=== PATIENT | female | born 1935 | race Asian ===

== ENCOUNTER 2017-10-08 07:52 | Inpatient (IN) | payer MEDICARE, MEDICAID ==
[~2017-10-08] VITALS: Ht 157.5 cm; Wt 67.4 kg
[2017-10-08] VITALS (17 sets, daily range): BP systolic 137–204; BP diastolic 51–82
[~2017-10-08 07:52] MED LIST: ALBUTEROL INH; ALENDRONATE SOD70 MG PO; AMLODIPINE BESYL5 MG PO; CLOPIDOGREL75 MG PO; DRISDOL50000 UNIT PO; FENOFIBRATE145 M1 PO; GLYBURIDE5 MG PO; ISOSORBIDE MONO60 M1 PO; JANUVIA100 MG PO; LEVAQUIN250 M1 ORAL; LEVAQUIN500 MG ORAL; LIDODERM700 M1 TOPIC; LYRICA50 MG PO; MEDROL DOSEPAK4 MG ORAL; METOPROLOL TART50 M1 PO; METRONIDAZOLE500 MG ORAL; PANTOPRAZOLE SO40 MG PO; PHENERGAN6.25 MG/5 ORAL; TYLENOL325 MG ORAL; VALSARTAN-HCTZ1 EAC4 PO
[2017-10-08] MEDS ORDERED: GABAPENTIN600 MG ORAL (07:57)
[2017-10-08] MEDS ORDERED: GLIPIZIDE5 MG ORAL (08:08)
--- NOTE | 2017-10-08 08:19 | Emergency Room Report ---
History of Present Illness General Chief Complaint: Altered Level of Consciousness Source: Family Member, Medical Record, EMS, Caregiver Present Illness HPI Patient presents with initial complaints of altered mental status Paramedics had arrived to the patient's home Patient was found to be hypoglycemic After given glucose there is some minimal improvement The time of exact last known well is not provided Patient herself is not alert Not providing any history Appears uncomfortable Family is presenting for further information Otherwise no obvious reports of vomiting or diarrhea no obvious trauma reported Unknown regarding fevers Allergies: Coded Allergies: OFLOXACIN (Verified Allergy, Unknown, 10/19/15) Patient History Limited by: medical condition Past Medical History: see triage record Pertinent Family History: unable to obtain Reviewed Nursing Documentation: PMH: Agreed, PSxH: Agreed Nursing Documentation-PMH Past Medical History: No History, Except For Hx Cardiac Problems: Yes Hx Hypertension: Yes Hx Pacemaker: No Hx Asthma: Yes Hx COPD: No Hx Diabetes: Yes Hx Cancer: No Hx Gastrointestinal Problems: No Hx Neurological Problems: Yes Hx Cerebrovascular Accident: Yes Hx Seizures: No Hx Vertigo: Yes Hx Dizziness: Yes Hx Syncope: Yes Hx Neurologic Surgery: Yes - S/P BRAIN SURGERY 1997 (REMOVAL OF CLOT) Review of Systems All Other Systems: limited - Other than the ones mentioned in the history of present illness all others are reviewed however they do stay limited due to the patient's mental status Physical Exam Vital Signs Date Time Temp Pulse Resp B/P (MAP) Pulse Ox O2 Delivery O2 Flow Rate FiO2 10/08/17 07:46 99 16 125/82 98 Room Air Sp02 EP Interpretation: reviewed, normal General Appearance: mild distress - Appears confused disoriented, eyes are closed ,response to physical stimuli Eyes: bilateral eye PERRL ENT: dry mucus membranes Neck: supple, thyroid normal Respiratory: no retraction, no accessory muscle use, crackles - diffusely Cardiovascular #1: regular rate, rhythm Gastrointestinal: non tender, soft Musculoskeletal: other - Patient presents with weakness and decreased movement of the left side of her body, review of medical records reveals a similar finding 2 years ago Neurologic: responsive - To physical stimuli, otherwise morning decreased responsiveness Skin: other - Left lower extremity evidence of previous old bypass surgery, now increased erythema to the lower extremity Lymphatic: no adenopathy Procedures Critical Care Time Critical Care Time 50 minutes for multiple reevaluation Continued critical findings requiring acute intervention Not including any procedural time Medical Decision Making Diagnostic Impression: Primary Impression: Severe sepsis Additional Impression: Hypertensive urgency, malignant ER Course Patient's presentation is concerning Multiple imaging of blood work is initiated Patient's last a well-known time is not known Patient is not a candidate for any thrombolytic therapy White blood cell count is elevated at 23,000 Patient during her stay started to decompensate with hypertensive malignancy including tachycardia After initial due diligence Patient did require acute medication for this At this time continues to be somewhat altered multiple dextrose doses have been given with improved glucose Patient could have potential encephalopathy from prolonged hypoglycemia At this time patient upgraded to ICU and admitted for further care in critical condition Patient's admitting physician also in the ER , Labs Test 10/08/17 08:00 10/08/17 08:15 10/08/17 08:45 10/08/17 11:00 White Blood Count 23.6 K/UL (4.8-10.8) Red Blood Count 3.74 M/UL (4.20-5.40) Hemoglobin 11.0 G/DL (12.0-16.0) Hematocrit 35.9 % (37.0-47.0) Mean Corpuscular Volume 96 FL (80-99) Mean Corpuscular Hemoglobin 29.4 PG (27.0-31.0) Mean Corpuscular Hemoglobin Concent 30.6 G/DL (32.0-36.0) Red Cell Distribution Width 13.0 % (11.6-14.8) Platelet Count 357 K/UL (150-450) Mean Platelet Volume 6.8 FL (6.5-10.1) Neutrophils (%) (Auto) % (45.0-75.0) Lymphocytes (%) (Auto) % (20.0-45.0) Monocytes (%) (Auto) % (1.0-10.0) Eosinophils (%) (Auto) % (0.0-3.0) Basophils (%) (Auto) % (0.0-2.0) Differential Total Cells Counted 100 Neutrophils % (Manual) 91 % (45-75) Lymphocytes % (Manual) 4 % (20-45) Monocytes % (Manual) 5 % (1-10) Eosinophils % (Manual) 0 % (0-3) Basophils % (Manual) 0 % (0-2) Band Neutrophils 0 % (0-8) Platelet Estimate Adequate Platelet Morphology Normal Hypochromasia 1+ Anisocytosis 1+ Sodium Level 138 MMOL/L (136-145) Potassium Level 3.3 MMOL/L (3.5-5.1) Chloride Level 102 MMOL/L (98-107) Carbon Dioxide Level 25 MMOL/L (21-32) Anion Gap 11 mmol/L (5-15) Blood Urea Nitrogen 34 mg/dL (7-18) Creatinine 1.4 MG/DL (0.55-1.30) Estimat Glomerular Filtration Rate mL/min (>60) Glucose Level 107 MG/DL (74-106) Calcium Level 9.5 MG/DL (8.5-10.1) Total Bilirubin 0.4 MG/DL (0.2-1.0) Aspartate Amino Transf (AST/SGOT) 43 U/L (15-37) Alanine Aminotransferase (ALT/SGPT) 20 U/L (12-78) Alkaline Phosphatase 78 U/L (46-116) Total Creatine Kinase 577 U/L (26-308) Creatine Kinase MB 10.0 NG/ML (0.0-3.6) Creatine Kinase MB Relative Index 1.7 Troponin I 0.047 ng/mL (0.000-0.056) Total Protein 7.4 G/DL (6.4-8.2) Albumin 2.4 G/DL (3.4-5.0) Globulin 5.0 g/dL Albumin/Globulin Ratio 0.5 (1.0-2.7) Lipase 78 U/L (73-393) Urine Color Yellow Urine Appearance Clear Urine pH 5 (4.5-8.0) Urine Specific [place] 1.015 (1.005-1.035) Urine Protein 1+ (NEGATIVE) Urine Glucose (UA) Negative (NEGATIVE) Urine Ketones 1+ (NEGATIVE) Urine Occult Blood 3+ (NEGATIVE) Urine Nitrite Negative (NEGATIVE) Urine Bilirubin Negative (NEGATIVE) Urine Urobilinogen Normal MG/DL (0.0-1.0) Urine Leukocyte Esterase Negative (NEGATIVE) Urine RBC 2-4 /HPF (0 - 2) Urine WBC 0-2 /HPF (0 - 2) Urine Squamous Epithelial Cells Few /LPF (NONE/OCC) Urine Bacteria Few /HPF (NONE) Lactic Acid Level 0.80 mmol/L (0.66-2.22) Arterial Blood pH 7.420 (7.350-7.450) Arterial Blood Partial Pressure CO2 33.8 mmHg (35.0-45.0) Arterial Blood Partial Pressure O2 86.3 mmHg (75.0-100.0) Arterial Blood HCO3 21.4 mmol/L (22.0-26.0) Arterial Blood Oxygen Saturation 96.0 % (92.0-98.0) Arterial Blood Base Excess -2.4 Baldev Test N/a EKG Diagnostic Results Rate: tachycardiac Rhythm: other ST Segments: other - Nonspecific ST and T-wave changes, prolonged QRS ASA given to the pt in ED: Yes Rhythm Strip Diag. Results EP Interpretation: yes Rate: 110 Rhythm: no PVC's, no ectopy, other - sinus tach Chest X-Ray Diagnostic Results Chest X-Ray Diagnostic Results : Chest X-Ray Ordered: Yes # of Views/Limited/Complete: 1 View Indication: Chest Pain EP Interpretation: Yes Interpretation: no consolidation, no effusion, no pneumothorax, other - Chronic markings in the right upper lobe, seen previously Impression: No acute disease Electronically Signed by: Brittany Davis DO CT/MRI/US Diagnostic Results CT/MRI/US Diagnostic Results : Impression CT headImpression: No acute intracranial bleed, mass effect or edema. 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 No change since 2013. Mild atrophy of the brain. Nonspecific white matter hypoattenuation probably due to chronic small vessel disease. Status post left frontal craniotomy. Last Vital Signs Date Time Temp Pulse Resp B/P (MAP) Pulse Ox O2 Delivery O2 Flow Rate FiO2 10/08/17 07:46 99 16 125/82 98 Room Air Status: worsened Disposition: ADMITTED INPATIENT Condition: Critical Referrals: TRACY GARVEY (PCP) BRITTANY DAVIS D.O. Oct 08, 2017 08:19
[2017-10-08] MEDS ORDERED: LEVOTHYROXINE50 MCG ORAL (08:25)
[2017-10-08] MEDS ORDERED: NORCO 5-325 TA1 EAC1 ORAL (08:26)
[2017-10-08] MEDS ORDERED: FOLIC ACID1 MG ORAL (08:26)
[2017-10-08] MEDS ORDERED: CLOPIDOGREL75 MG ORAL (08:28)
[2017-10-08] MEDS ORDERED: PANTOPRAZOLE SO40 MG ORAL (08:31)
[2017-10-08] MEDS ORDERED: FERROUS SULFAT325 MG ORAL (08:31)
[2017-10-08] MEDS ORDERED: METOPROLOL TART50 M1 ORAL (08:31)
[2017-10-08] MEDS ORDERED: JANUVIA25 MG ORAL (08:31)
[2017-10-08] MEDS ORDERED: DIOVAN HCT 3201 EACH ORAL (08:31)
[2017-10-08 08:33] LABS: APPEARANCE,URINE CLEAR; KETONES,URINE 1+ (NEGATIVE); LEUKOCYTE ESTERASE ,URINE NEGATIVE (NEGATIVE); NITRITE,URINE NEGATIVE (NEGATIVE); PH,URINE 5 (4.5-8.0); PROTEIN,URINE 1+ (NEGATIVE); UROBILINOGEN,URINE NORMAL MG/DL (0.0-1.0)
[2017-10-08 08:39] LABS: ANION GAP 11 mmol/L (5-15); CALCIUM 9.5 MG/DL (8.5-10.1); CARBON DIOXIDE 25 MMOL/L (21-32); CHLORIDE 102 MMOL/L (98-107); CREATININE 1.4 MG/DL (0.55-1.30); MEAN CORPUSCULAR HEMOGLOBIN 29.4 PG (27.0-31.0); MEAN CORPUSCULAR HGB CONC 30.6 G/DL (32.0-36.0); MEAN CORPUSCULAR VOLUME 96 FL (80-99); MEAN PLATELET VOLUME 6.8 FL (6.5-10.1); PLATELET COUNT 357 K/UL (150-450); POTASSIUM 3.3 MMOL/L (3.5-5.1); RED BLOOD COUNT 3.74 M/UL (4.20-5.40); SODIUM 138 MMOL/L (136-145)
[2017-10-08] MEDS ORDERED: [UNRECOGNIZED DRUG - OTHER] ORAL (08:39)
[2017-10-08 08:42] LABS: WHITE BLOOD COUNT 23.6 K/UL (4.8-10.8)
[2017-10-08 08:43] LABS: ALANINE AMINOTRANSFERASE 20 U/L (12-78); ALBUMIN/GLOBULIN RATIO 0.5 (1.0-2.7); ASPARTATE AMINO TRANSFERASE 43 U/L (15-37); TOTAL PROTEIN 7.4 G/DL (6.4-8.2)
[2017-10-08] MEDS ORDERED: Vancomycin 1 GM in NS 275 ML IVPB ONE (08:45)
[2017-10-08] MEDS ORDERED: Zosyn 3.375gm/50ml Premix 50 ML IVPB ONE (08:45)
--- NOTE | 2017-10-08 08:48 | Diagnostic Imaging Report ---
Indication: Headache Technique: Contiguous 5 mm thick transaxial imaging of the head obtained in a Siemens Sensation [address] scanner. Soft tissue and bone windows generated. Automatic Exposure Control was utilized. Total Dose length Product (DLP): [address] Dose Index Volume (CTDIvol): 70.38, 0.15 mGy Comparison: 08/29/14 Findings: There is mild prominence of the ventricles, basal cisterns, and cerebral sulci consistent with atrophy. Mild, nonspecific, white matter hypoattenuation is noted throughout the brain consistent with chronic small vessel disease. Old bifrontal subdural hematomas are present. These are hypodense and not associated with mass effect or edema. These are present on the 2014 examination and appear unchanged. There is a small focus of swelling of the posterior scalp on the current study. There is no midline shift, edema, acute hemorrhage, mass effect, or new abnormal extra-axial fluid collections. Bones and extra osseous soft tissues are unremarkable. Left frontal craniotomy is noted. Impression: No acute intracranial bleed, mass effect or edema. 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 No change since 2014. Mild atrophy of the brain. Nonspecific white matter hypoattenuation probably due to chronic small vessel disease. Status post left frontal craniotomy. The CT scanner at [facility] is accredited by the [employer] and the scans are performed using dose optimization techniques as appropriate to a performed exam including Automatic Exposure control.
[2017-10-08] MEDS ORDERED: Vancomycin 1gm inj IVPB ONE (08:50)
[2017-10-08] MEDS ORDERED: Zosyn 3.375gm inj ONE (08:51)
[2017-10-08 08:53] LABS: LIPASE 78 U/L (73-393)
[2017-10-08 08:58] LABS: BACTERIA,URINE FEW /HPF; SQUAMOUS EPITHELIAL CELL,UR FEW /LPF (NONE/OCC); WBC,URINE 0-2 /HPF (0 - 2)
[2017-10-08 09:06] LABS: ANISOCYTOSIS 1+; BAND NEUTROPHILS % (MANUAL) 0 % (0-8); BASOPHILS % (MANUAL) 0 % (0-2); EOSINOPHILS % (MANUAL) 0 % (0-3); HYPOCHROMASIA 1+; LYMPHOCYTES % (MANUAL) 4 % (20-45); NEUTROPHILS % (MANUAL) 91 % (45-75); PLATELET ESTIMATE ADEQUATE; PLATELET MORPHOLOGY NORMAL; TOTAL CELLS COUNTED 100
[2017-10-08] MEDS ORDERED: LORazepam Inj 2mg/ml 1ml IV ONE (10:45)
[2017-10-08] MEDS ORDERED: D5 1/2NS 1000ml IV ONE (10:45)
[2017-10-08] MEDS ORDERED: Nitroglycerin 2% oint pkt TOPIC ONE (11:00)
[2017-10-08 11:06] LABS: ABG BASE EXCESS -2.4; ABG PCO2 33.8 mmHg (35.0-45.0)
[2017-10-08] MEDS ORDERED: dilTIAZem HCl 25mg/5ml Inj IVP ONE ×2 (12:00→12:30)
--- NOTE | 2017-10-08 12:09 | Diagnostic Imaging Report ---
Indication: Dyspnea Comparison: 11/12/15 A single view chest radiograph was obtained. Findings: There is abnormal soft tissue involving the pleura with thickening in the right lateral chest. This is apparently chronic and was seen previously as well. The heart is enlarged. Difficult to exclude underlying infiltrate in the area that is obscured within the right perihilar region and upper lobe. Bones are osteopenic. Impression: Chronic findings.
[2017-10-08] MEDS ORDERED: Acetaminophen 650 MG SUPP RECTAL ONE ×2 (12:15→12:30)
[2017-10-08] MEDS ORDERED: dilTIAZem HCl 125mg/25ml Inj IVPB ONE (13:10)
--- NOTE | 2017-10-08 14:53 | Neurology Progress Note ---
Objective Physical Exam Last Vital Signs Date Time Temp Pulse Resp B/P (MAP) Pulse Ox O2 Delivery O2 Flow Rate FiO2 10/08/17 14:21 99.5 123 29 169/78 98 Nasal Cannula 2.0 Laboratory Tests Test 10/08/17 08:00 10/08/17 08:15 10/08/17 08:45 10/08/17 11:00 White Blood Count 23.6 K/UL (4.8-10.8) *H Red Blood Count 3.74 M/UL (4.20-5.40) L Hemoglobin 11.0 G/DL (12.0-16.0) L Hematocrit 35.9 % (37.0-47.0) L Mean Corpuscular Volume 96 FL (80-99) Mean Corpuscular Hemoglobin 29.4 PG (27.0-31.0) Mean Corpuscular Hemoglobin Concent 30.6 G/DL (32.0-36.0) L Red Cell Distribution Width 13.0 % (11.6-14.8) Platelet Count 357 K/UL (150-450) Mean Platelet Volume 6.8 FL (6.5-10.1) Neutrophils (%) (Auto) % (45.0-75.0) Lymphocytes (%) (Auto) % (20.0-45.0) Monocytes (%) (Auto) % (1.0-10.0) Eosinophils (%) (Auto) % (0.0-3.0) Basophils (%) (Auto) % (0.0-2.0) Differential Total Cells Counted 100 Neutrophils % (Manual) 91 % (45-75) H Lymphocytes % (Manual) 4 % (20-45) L Monocytes % (Manual) 5 % (1-10) Eosinophils % (Manual) 0 % (0-3) Basophils % (Manual) 0 % (0-2) Band Neutrophils 0 % (0-8) Platelet Estimate Adequate Platelet Morphology Normal Hypochromasia 1+ Anisocytosis 1+ Sodium Level 138 MMOL/L (136-145) Potassium Level 3.3 MMOL/L (3.5-5.1) L Chloride Level 102 MMOL/L (98-107) Carbon Dioxide Level 25 MMOL/L (21-32) Anion Gap 11 mmol/L (5-15) Blood Urea Nitrogen 34 mg/dL (7-18) H Creatinine 1.4 MG/DL (0.55-1.30) H Estimat Glomerular Filtration Rate mL/min (>60) Glucose Level 107 MG/DL (74-106) H Calcium Level 9.5 MG/DL (8.5-10.1) Total Bilirubin 0.4 MG/DL (0.2-1.0) Aspartate Amino Transf (AST/SGOT) 43 U/L (15-37) H Alanine Aminotransferase (ALT/SGPT) 20 U/L (12-78) Alkaline Phosphatase 78 U/L (46-116) Total Creatine Kinase 577 U/L (26-308) H Creatine Kinase MB 10.0 NG/ML (0.0-3.6) H Creatine Kinase MB Relative Index 1.7 Troponin I 0.047 ng/mL (0.000-0.056) Total Protein 7.4 G/DL (6.4-8.2) Albumin 2.4 G/DL (3.4-5.0) L Globulin 5.0 g/dL Albumin/Globulin Ratio 0.5 (1.0-2.7) L Lipase 78 U/L (73-393) Urine Color Yellow Urine Appearance Clear Urine pH 5 (4.5-8.0) Urine Specific [place] 1.015 (1.005-1.035) Urine Protein 1+ (NEGATIVE) H Urine Glucose (UA) Negative (NEGATIVE) Urine Ketones 1+ (NEGATIVE) H Urine Occult Blood 3+ (NEGATIVE) H Urine Nitrite Negative (NEGATIVE) Urine Bilirubin Negative (NEGATIVE) Urine Urobilinogen Normal MG/DL (0.0-1.0) Urine Leukocyte Esterase Negative (NEGATIVE) Urine RBC 2-4 /HPF (0 - 2) H Urine WBC 0-2 /HPF (0 - 2) Urine Squamous Epithelial Cells Few /LPF (NONE/OCC) Urine Bacteria Few /HPF (NONE) Lactic Acid Level 0.80 mmol/L (0.66-2.22) Arterial Blood pH 7.420 (7.350-7.450) Arterial Blood Partial Pressure CO2 33.8 mmHg (35.0-45.0) L Arterial Blood Partial Pressure O2 86.3 mmHg (75.0-100.0) Arterial Blood HCO3 21.4 mmol/L (22.0-26.0) L Arterial Blood Oxygen Saturation 96.0 % (92.0-98.0) Arterial Blood Base Excess -2.4 Baldev Test N/a Impression/Recommendations Problems: (1) persistant unresponciveness, multifactorial (2) Hypertensive urgency, malignant (3) Severe sepsis (4) L leg cellulitis (5) CKD (chronic kidney disease) Status: unchanged Recommendations # [id number] MIRIAM KURTZ Oct 08, 2017 14:53
[2017-10-08] MEDS ORDERED: D5 1/2NS 1,000 ML IV SCH (15:00)
[2017-10-08] MEDS: NovoLOG Insulin Flexpen SUBQ SCH ×2 (17:05→20:48)
[2017-10-08] MEDS: Piperacillin/Tazobactam 3.375 GM in D5W 110 ML IVPB SCH (17:13)
[2017-10-08] MEDS ORDERED: Metoprolol 25mg tab ONE (20:40)
[2017-10-08] MEDS: Metoprolol Tartrate 50mg tab ORAL SCH (20:47)
--- NOTE | 2017-10-08 21:00 | Consultation ---
DATE OF CONSULTATION: 10/08/2017 NEUROLOGICAL CONSULTATION CONSULTING PHYSICIAN: Fredi Alves M.D. REQUESTING PHYSICIAN: Osbaldo Grullon M.D. PRIMARY CARE PHYSICIAN: Amari Rapp M.D. LOCATION: Intensive care unit. HISTORY OF PRESENT ILLNESS: This 82-year-old female seen in neurological consultation to evaluate new changes in mental status. The patient was brought from her home after she developed verbal unresponsiveness. Apparently, in the field, she was hypoglycemic in 40s. She was given D50, but had only minimal response. She was brought to this facility being not awake. Vital signs initially stable, but subsequently developing a sinus tachycardia at 130, temperature 99.5, and blood pressure fluctuating up to 204/82. Stat CT scan of the brain without contrast was obtained revealing no acute intracranial abnormalities with no mass and no edema. There is a chronic mild subdural hematoma, bifrontal, with no change since the last assessment in 2013. There was white matter hypoattenuation compatible with chronic small vessel disease. The patient is status post left frontal craniotomy. Her chest x-ray, abnormal soft tissues involving pleura with thickening of the right lateral chest, apparently chronic, previously observed and cardiomegaly. Lab work on admission included WBC 23.6, hemoglobin 11.0, and hematocrit 35.9. Urinalysis with ketones 1+ and 1+ protein. Chemistry panel, elevated BUN of 34, creatinine 1.4, blood sugar 107, AST of 33, elevated CPK 577, and CK-MB 10.0. Normal troponin. Her EKG with sinus rhythm. The patient was placed on Cardizem to control sinus tachycardia. Her current treatment also included IV antibiotics, IV fluids, aspirin, Diltiazem, gabapentin, insulin, levothyroxine, lorazepam p.r.n., metoprolol, and pantoprazole. Since admission till present, there was no much improvement. The patient remained verbally unresponsive. PAST MEDICAL HISTORY: The patient has a history of subdural hematoma, required a left-sided craniotomy in 1997. She has a history of hypertension, bronchial asthma, recurrent syncope, and . ALLERGIES: Cefepime. SOCIAL HISTORY: Lives at home with her family. REVIEW OF SYMPTOMS: Unable to obtain due to the patient's status. PHYSICAL EXAMINATION: GENERAL: A well-developed and well-nourished lady, in no acute distress, lying in bed, motionless, and nonverbal. VITAL SIGNS: Her current blood pressure 204/82 and heart rate of 142. Her blood sugar 107. HEENT: Head, normocephalic. There is no evidence of trauma. Eyes, ears, and throat are clear. NECK: Supple. No meningeal signs. MUSCULOSKELETAL EXAMINATION: Remarkable for evidence of cellulitis and swelling in the distal aspect of left lower extremity. A sterile gauze now placed on the skin laceration over the left foot. Peripheral pulses 1+. MENTAL STATUS: Unresponsive to voice. On stimulation, moaning, but does not open eyes and does not follow commands. CRANIAL NERVE II: Pupils 2 mm responding to light and accommodation. Extraocular movements intact. CRANIAL NERVE V: Normal corneal responses. CRANIAL NERVE VII: Minor facial asymmetry. CRANIAL NERVE VIII: Unable to test. CRANIAL NERVES IX THROUGH XII: Reduced gag response. MOTOR EXAMINATION: Diffuse rigidity. Unable to keep arms against the gravity. No involuntary movement. No muscle wasting noted. Deep tendon reflexes 2+ in the right biceps, triceps, and brachioradialis and right knee jerk; 1+ left sided; positive Babinski on the right, unable to test on the left. SENSORY EXAMINATION: No response to pin stimulation. IMPRESSION: 1. Persistent verbal unresponsiveness, multifactorial, related to underlying infection, prolonged hypoglycemic episode, and metabolic derangement. 2. Cellulitis of left lower extremity, sepsis. 3. Status post old left-sided craniotomy and subdural hematoma evacuation. 4. 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 5. Diabetes type 2. 6. Hypertension, out of control. 7. Renal insufficiency. RECOMMENDATIONS: 1. Check EEG. 2. Continue with IV fluids and antibiotics. 3. Continue with aspirin, Plavix, and statins. We will follow with you. Thank you for allowing me to see this interesting patient in neurological consultation. Fredi Alves M.D. DR: EDILMA JOB#: [id number] CC:
--- NOTE | 2017-10-08 22:45 | History and Physical Report ---
DATE OF ADMISSION: 10/08/2017 CHIEF COMPLAINT: Cellulitis, sepsis, and altered mental status. HISTORY OF PRESENT ILLNESS: The patient is an 82-year-old female, well known to me. She has a history of peripheral artery disease, hypertension, stroke, and diabetes, who presented from home after family members found her confused and altered. On evaluation in the emergency room, CT scan of the head showed no evidence of any acute stroke. She was noted to be hypoglycemic after receiving D50. Her mental status only mildly improved. The patient was also noted on exam to have a left lower extremity cellulitis. She had a white count of 23,000. Cultures have been drawn. The patient has been started on broad-spectrum IV antibiotic therapy. She is now admitted for further evaluation and care. PAST MEDICAL HISTORY: As above. PAST SURGICAL HISTORY: Multiple angioplasties of the lower extremities with peripheral artery disease and history of craniotomy. CURRENT MEDICATIONS: Reconciled and reviewed. ALLERGIES: Ofloxacin. FAMILY HISTORY: Noncontributory. SOCIAL HISTORY: Negative for tobacco, ethanol, or drugs. REVIEW OF SYSTEMS: From the patient unobtainable. PHYSICAL EXAMINATION: VITAL SIGNS: Temperature is 99.5, pulse 123, respirations 29, and blood pressure 169/78. GENERAL: The patient is a well-developed female. She is somnolent and poorly arousable. Does not follow commands. The oropharynx is clear. NECK: Supple. HEART: Tachycardic. LUNGS: Clear. ABDOMEN: Soft, nontender, and nondistended. EXTREMITIES: Without clubbing or cyanosis. The left foot is slightly cooler than the right. There is noted to be erythema of the [place] and abrasions to the toes. LABORATORY DATA: UA was negative. White count 24,000, hemoglobin 11, hematocrit 35, and platelet count of 357. Blood gases unremarkable. Sodium is 138, potassium 3.3, BUN 34, and creatinine is 1.4. Lactic acid is 0.8. Glucose is 107. CK of 577. ASSESSMENT: This is an unfortunate female, admitted with complaints of sepsis and altered mental status. 1. Sepsis. 2. Altered mental status. 3. Prior history of intracranial bleed. 4. Hypertension. 5. Diabetes. 6. Low CVP. 7. Peripheral artery disease. PLAN: Aggressive fluid resuscitation. Broad-spectrum IV antibiotics. Follow up cultures. Consider repeat CAT scan in 24 to 48 hours if her mental status does not improve. Neurology, Cardiology, and Infectious Disease consultations to be obtained. The patient will have Accu-Cheks monitored. We will order CAT scan of the left lower extremity to rule out necrotizing fasciitis. Osbaldo Grullon M.D. DR: Elieser JOB#: [id number] CC:
--- NOTE | 2017-10-08 23:03 | General Progress Note ---
Progress Note Progress Note Dictated consult to follow Admitted with altered mental status unresponsive and sepsis Had low sugars Cold ischemic pregangrenous left foot to knee with severely contracted left leg knee Hx of calcific PAD with no run off left leg and prior hx of revascularizations yrs ago Right foot warm with intact dopplers DM, HTN, Hx of craniotomy ----Left leg not salvageable Rec MRI brain Leg arterial duplex Lovenox 1mg/kg sq 12 Abx per ID Once more stable; will need left leg above knee amputation d/w pt's son Colten at length d/w pmd & icu nurse MADELINE BRADFORD Oct 08, 2017 23:03
[2017-10-08] MEDS ORDERED: Enoxaparin 60mg Inj SUBQ SCH (23:30)
[2017-10-09] VITALS (24 sets, daily range): BP systolic 130–172; BP diastolic 35–81
[2017-10-09] MEDS: Piperacillin/Tazobactam 3.375 GM in D5W 110 ML IVPB SCH ×2 (00:29→09:00)
[2017-10-09 05:38] LABS: MEAN CORPUSCULAR HEMOGLOBIN 28.9 PG (27.0-31.0); MEAN CORPUSCULAR HGB CONC 30.1 G/DL (32.0-36.0); MEAN CORPUSCULAR VOLUME 96 FL (80-99); MEAN PLATELET VOLUME 6.3 FL (6.5-10.1); PLATELET COUNT 320 K/UL (150-450); RED BLOOD COUNT 3.45 M/UL (4.20-5.40); RED CELL DISTRIBUTION WIDTH 12.7 % (11.6-14.8); WHITE BLOOD COUNT 17.2 K/UL (4.8-10.8)
[2017-10-09 05:51] LABS: ALANINE AMINOTRANSFERASE 18 U/L (12-78); ALBUMIN/GLOBULIN RATIO 0.4 (1.0-2.7); ANION GAP 11 mmol/L (5-15); ASPARTATE AMINO TRANSFERASE 32 U/L (15-37); CARBON DIOXIDE 23 MMOL/L (21-32); CHLORIDE 107 MMOL/L (98-107); CREATININE 1.1 MG/DL (0.55-1.30); POTASSIUM 2.9 MMOL/L (3.5-5.1); SODIUM 141 MMOL/L (136-145); TOTAL PROTEIN 5.6 G/DL (6.4-8.2)
[2017-10-09] MEDS: NovoLOG Insulin Flexpen SUBQ SCH ×4 (06:13→20:49)
[2017-10-09 08:20] LABS: BAND NEUTROPHILS % (MANUAL) 0 % (0-8); BASOPHILS % (MANUAL) 0 % (0-2); EOSINOPHILS % (MANUAL) 1 % (0-3); LYMPHOCYTES % (MANUAL) 2 % (20-45); NEUTROPHILS % (MANUAL) 95 % (45-75); PLATELET ESTIMATE ADEQUATE; TOTAL CELLS COUNTED 100
[2017-10-09 08:21] LABS: PLATELET MORPHOLOGY NORMAL
[2017-10-09] MEDS ORDERED: Metoprolol Tartrate 50mg tab ORAL SCH (09:00)
[2017-10-09] MEDS: Vancomycin 1gm in D5W 275ml IVPB SCH (09:00)
[2017-10-09] MEDS ORDERED: sitaGLIPtin 25mg tab ORAL SCH (09:00)
[2017-10-09] MEDS: Metoprolol Tartrate 50mg tab ORAL SCH ×2 (09:00→20:47)
--- NOTE | 2017-10-09 09:31 | General Progress Note ---
Assessment/Plan Problem List: (1) Ischemia of foot ICD Codes: I99.8 - Other disorder of circulatory system SNOMED: 705549418, 871706290 (2) Hypoglycemia ICD Codes: E16.2 - Hypoglycemia SNOMED: 972754584 (3) Diabetes mellitus ICD Codes: E11.9 - Diabetes mellitus SNOMED: 69143248 (4) CKD (chronic kidney disease) ICD Codes: N18.9 - CKD (chronic kidney disease) SNOMED: 673176885 (5) L leg cellulitis Status: not improved Assessment/Plan iv abx ivfr antiplt rx mri eeg ppi rx critical and gaurded Subjective ROS Limited/Unobtainable: Yes Constitutional: Reports: malaise, weakness HEENT: Reports: no symptoms Cardiovascular: Reports: no symptoms Respiratory: Reports: no symptoms Gastrointestinal/Abdominal: Reports: no symptoms Genitourinary: Reports: no symptoms Neurologic/Psychiatric: Reports: pre-existing deficit Endocrine: Reports: no symptoms Hematologic/Lymphatic: Reports: no symptoms Allergies: Coded Allergies: OFLOXACIN (Verified Allergy, Unknown, 10/19/15) All Systems: reviewed and negative except above Subjective remains unresponsive. going for mri. on abx. vascular noted. all noted. Objective Last 24 Hour Vital Signs Date Time Temp Pulse Resp B/P (MAP) Pulse Ox O2 Delivery O2 Flow Rate FiO2 10/09/17 08:10 172/142 10/09/17 08:00 83 10/09/17 08:00 98.6 26 157/64 99 Nasal Cannula 2.0 10/09/17 07:00 88 30 167/70 99 Nasal Cannula 2.0 10/09/17 06:00 81 30 153/53 99 Nasal Cannula 2.0 10/09/17 05:00 76 26 152/48 100 Nasal Cannula 2.0 10/09/17 04:00 73 10/09/17 04:00 98.6 73 26 154/52 100 Nasal Cannula 2.0 10/09/17 03:00 86 26 159/67 96 Nasal Cannula 2.0 10/09/17 02:00 73 26 164/63 99 Nasal Cannula 2.0 10/09/17 01:00 70 29 140/49 100 Nasal Cannula 2.0 10/09/17 00:29 164/52 10/09/17 00:00 99.0 73 21 162/68 100 Nasal Cannula 2.0 10/09/17 00:00 69 10/08/17 23:00 69 23 161/55 99 Nasal Cannula 2.0 10/08/17 22:00 71 26 149/51 99 Nasal Cannula 2.0 10/08/17 21:00 74 27 161/58 100 Nasal Cannula 2.0 10/08/17 20:47 98 139/61 10/08/17 20:00 98 10/08/17 20:00 98.8 93 21 139/61 99 Nasal Cannula 2.0 10/08/17 19:30 99 Nasal Cannula 2.0 28 10/08/17 19:00 Nasal Cannula 2.0 28 10/08/17 19:00 83 23 143/53 99 Nasal Cannula 2.0 10/08/17 18:00 116 23 163/54 99 Nasal Cannula 2.0 10/08/17 17:53 105 10/08/17 17:00 120 27 168/75 99 Nasal Cannula 2.0 10/08/17 16:30 113 23 170/60 99 Nasal Cannula 2.0 10/08/17 16:00 98.4 99 23 148/56 98 Nasal Cannula 2.0 10/08/17 15:30 95 23 173/60 99 Nasal Cannula 2.0 10/08/17 15:00 95 24 142/60 98 Nasal Cannula 2.0 10/08/17 14:30 99.8 90 23 137/52 98 Nasal Cannula 2.0 10/08/17 14:21 99.5 123 29 169/78 98 Nasal Cannula 2.0 10/08/17 14:19 99.5 10/08/17 13:45 99.5 123 29 169/78 98 Nasal Cannula 2.0 10/08/17 13:36 122 169/78 10/08/17 12:47 98.8 119 30 187/81 98 Nasal Cannula 2.0 10/08/17 12:39 130 187/81 10/08/17 12:00 142 204/82 10/08/17 11:36 98.8 142 23 204/82 98 Nasal Cannula 2.0 10/08/17 11:33 187/73 10/08/17 10:00 98.5 130 22 188/74 98 Nasal Cannula 2.0 10/08/17 09:40 98.5 114 16 187/73 98 Room Air Intake and Output 10/09/17 10/10/17 19:00 07:00 Intake Total 60 ml Output Total 20 ml Balance 40 ml Other 60 ml Output Urine Total 20 ml Laboratory Tests 10/08/17 11:00: Arterial Blood pH 7.420, Arterial Blood Partial Pressure CO2 33.8L, Arterial Blood Partial Pressure O2 86.3, Arterial Blood HCO3 21.4L, Arterial Blood Oxygen Saturation 96.0, Arterial Blood Base Excess -2.4, Baldev Test N/a 10/09/17 04:35: White Blood Count 17.2H, Red Blood Count 3.45L, Hemoglobin 10.0L, Hematocrit 33.1L, Mean Corpuscular Volume 96, Mean Corpuscular Hemoglobin 28.9, Mean Corpuscular Hemoglobin Concent 30.1L, Red Cell Distribution Width 12.7, Platelet Count 320, Mean Platelet Volume 6.3L, Neutrophils (%) (Auto) , Lymphocytes (%) (Auto) , Monocytes (%) (Auto) , Eosinophils (%) (Auto) , Basophils (%) (Auto) , Differential Total Cells Counted 100, Neutrophils % ( Manual) 95H, Lymphocytes % (Manual) 2L, Monocytes % (Manual) 2, Eosinophils % ( Manual) 1, Basophils % (Manual) 0, Band Neutrophils 0, Platelet Estimate Adequate, Platelet Morphology Normal, Sodium Level 141, Potassium Level 2.9L, Chloride Level 107, Carbon Dioxide Level 23, Anion Gap 11, Blood Urea Nitrogen 20H, Creatinine 1.1, Estimat Glomerular Filtration Rate , Glucose Level 124H, Hemoglobin A1c 6.7H, Calcium Level 8.0L, Total Bilirubin 0.4, Aspartate Amino Transf (AST/SGOT) 32, Alanine Aminotransferase (ALT/SGPT) 18, Alkaline Phosphatase 66, Total Protein 5.6L, Albumin 1.7L, Globulin 3.9, Albumin/ Globulin Ratio 0.4L Height (Feet): 5 Height (Inches): 2.00 Weight (Pounds): 125 General Appearance: WD/WN, lethargic Neck: supple Cardiovascular: regularly irregular Respiratory/Chest: chest wall non-tender, lungs clear, normal breath sounds Abdomen: normal bowel sounds, non tender, soft, no organomegaly Neurologic: disoriented, unresponsive, aphasia Skin: other - left leg cool and red ANSON PARRISH Oct 09, 2017 09:30
--- NOTE | 2017-10-09 10:52 | Wound Care Consultation ---
Wound Assessment Wound Assessment #1: Wound Number: 1 Wound Present on Admission: Yes New Wound: No Status Change of Wound: No Wound Location Body Site Modif: mid Wound Location Body Site: other - sacrococcygeal Wound Type: pressure ulcer Gaby Test: Does not Gaby Pressure Ulcer Stage: Deep Tissue Injury Wound Thickness: Full Thickness Wound Length: 2.5 Wound Width: 2.5 Wound Depth: utd Percent of Wound Purple/Maroon: 100 Wound Drainage Amount: None Wound Drainage Odor: None/Absent Tissue Surrounding Wound: Erythemic - hyperpigmentation Wound General Appearance: Reddened - purple Wound Assessment #2: Wound Number: 2 Wound Present on Admission: Yes New Wound: No Status Change of Wound: No Wound Location Body Site Modif: right Wound Location Body Site: buttocks Wound Type: pressure ulcer Gaby Test: Does not Gaby Pressure Ulcer Stage: Deep Tissue Injury Wound Thickness: Full Thickness Wound Length: 2.0 Wound Width: 2.0 Wound Depth: utd Percent of Wound Purple/Maroon: 100 Wound Drainage Amount: None Wound Drainage Odor: None/Absent Tissue Surrounding Wound: Erythemic Wound General Appearance: Reddened - purple Wound Assessment #3: Wound Number: 3 Wound Present on Admission: Yes New Wound: No Status Change of Wound: No Wound Location Body Site Modif: left, lower, anterior Wound Location Body Site: leg Wound Type: blister - open Gaby Test: Does not Gaby Wound Thickness: Partial Thickness Wound Length: 1.5 Wound Width: 1.5 Wound Depth: 0.1 Percent of Wound Saco/Red: 100 Wound Drainage Amount: None Wound Drainage Odor: None/Absent Tissue Surrounding Wound: Erythemic - with scattered dry scabs Wound General Appearance: Reddened, Draining Wound Assessment #4: Wound Number: 4 Wound Present on Admission: Yes New Wound: No Status Change of Wound: No Wound Location Body Site Modif: left, anterior Wound Location Body Site: toe - 1st Wound Type: blister - open Gaby Test: Does not Gaby Pressure Ulcer Stage: II Wound Thickness: Partial Thickness Wound Length: 2.5 Wound Width: 2.5 Wound Depth: less than 0.1 Percent of Wound Saco/Red: 100 Wound Drainage Description: Serosanguineous Wound Drainage Amount: Scant Wound Drainage Odor: None/Absent Tissue Surrounding Wound: Erythemic Wound General Appearance: Reddened, Draining Wound Assessment #5: Wound Number: 5 Wound Present on Admission: Yes New Wound: No Status Change of Wound: No Wound Location Body Site Modif: left, anterior Wound Location Body Site: toe - 3rd Wound Type: blister - open Gaby Test: Does not Gaby Pressure Ulcer Stage: II Wound Thickness: Partial Thickness Wound Length: 3.0 Wound Width: 2.5 Wound Depth: less than 0.1 Percent of Wound Saco/Red: 100 Wound Drainage Description: Serosanguineous Wound Drainage Amount: Scant Wound Drainage Odor: None/Absent Tissue Surrounding Wound: Erythemic Wound General Appearance: Reddened, Draining Wound Assessment #6: Wound Number: 6 Wound Present on Admission: Yes New Wound: No Status Change of Wound: No Wound Location Body Site Modif: left, anterior Wound Location Body Site: toe - 4th Wound Type: blister - open Gaby Test: Does not Gaby Pressure Ulcer Stage: II Wound Thickness: Partial Thickness Wound Length: 1.5 Wound Width: 1.5 Wound Depth: less than 0.1 Percent of Wound Saco/Red: 100 Wound Drainage Description: Serosanguineous Wound Drainage Amount: Scant Wound Drainage Odor: None/Absent Tissue Surrounding Wound: Erythemic Wound General Appearance: Reddened, Draining Wound Assessment #7: Wound Number: 7 Wound Present on Admission: Yes New Wound: No Status Change of Wound: No Wound Location Body Site Modif: left Wound Location Body Site: toe - 5th Wound Type: blister Gaby Test: Does not Gaby Wound Thickness: Partial Thickness Wound Length: 2.0 Wound Width: 1.5 Other Colors Identified: clear fluid Percentage Other Color: 100 Wound Drainage Amount: None Wound Drainage Odor: None/Absent Tissue Surrounding Wound: Intact Wound Comment #1 Sacrococcygeal DTI pressure ulcer #2 Right Buttock DTI pressure ulcer #3 Left lower anterior leg open blister #4 Left 1st anterior toe open blister stage II pressure ulcer #5 Left 3rd anterior toe open blister stage II pressure ulcer #6 Left 4th toe anterior toe open blister stage II pressure ulcer #7 Left 5th toe lateral intact fluid filled blister Recommendation -Local wound care per protocol -Turn and reposition -Keep clean and dry -Optimize nutrition -Offload both heels -Heel protector on both heels -Low air loss mattress -Assess and f/u accordingly for any changes GEBREMEDHIN,BRIDGET RN Oct 09, 2017 10:52
--- NOTE | 2017-10-09 11:09 | Diagnostic Imaging Report ---
Indication: NG tube Comparison: None Single view of the abdomen obtained Findings: There is a nasogastric tube which is in the stomach in good position. Very little of the abdomen is seen on this examination. This is mostly a chest x-ray. Bowel gas pattern is not evaluated adequately. IVC filter noted. Extensive pleural calcification and thickening noted on the right side unchanged from previous studies. Impression: NG tube in good position.
[2017-10-09] MEDS: Enoxaparin 60mg Inj SUBQ SCH ×2 (11:16→23:21)
[2017-10-09] MEDS ORDERED: KCl 10% 40mEq/30ml liquid NG ONE (12:30)
--- NOTE | 2017-10-09 13:38 | Diagnostic Imaging Report ---
Indication: Altered level of consciousness Technique: The head was imaged in a 1.5 Aspen magnet. Sequences obtained include sagittal and axial T1 FLAIR, axial T2 fast spin echo with fat saturation, axial T2 FLAIR, diffusion and ADC map. Gadolinium-enhanced axial and coronal T1 FLAIR obtained also. Comparison: None Findings: There is moderate prominence of the sulci, ventricles, and basal cisterns consistent with atrophy. Moderate, nonspecific T2 hyperintensity noted within white matter. This may be due to chronic small vessel disease. No abnormal enhancement is identified. There is no restricted diffusion. Hebert-white differentiation is normal. There is no mass effect, midline shift, edema, or hemorrhage. There are no abnormal extra-axial or intra-axial fluid collections. The corpus callosum and sella are unremarkable. The brainstem and cerebellum are unremarkable. Bone marrow signal within the visualized osseous structures appears age appropriate and unremarkable otherwise. There is thecal thickening involving the visualized paranasal sinuses, mild in degree. Impression: No acute intracranial findings. Age-related findings including moderate atrophy and evidence of chronic small vessel disease involving white matter tracts. Sinusitis
--- NOTE | 2017-10-09 14:08 | Diagnostic Imaging Report ---
APPROVED REPORT CPT Code: 64484 Symptoms Non-healing Ulcer : Left PAD Comments: Technically difficult/limited study due to BLE contracture of hip and knee. Severely contracted Cold left foot RIGHT LEG: Common femoral artery waveform analysis is within normal limits at rest. Color flow duplex sonography reveals calcification throughout the superficial femoral artery. There is no evidence of significant stenosis or occlusion within this segment. A mild (30%) stenosis is seen in the popliteal artery. The tibioperoneal trunk is patent. The dorsalis pedis artery was not also visualized due to contracture. The distal posterior tibial artery is patent. The Doppler tibial artery waveform analysis from distal posterior tibial artery is compatible with moderate ischemia at rest. LEFT LEG: Common femoral artery waveform analysis is within normal limits at rest. The proximal superficial femoral artery is patent. An occluded stent is seen in the mid to distal segment of the superficial femoral artery. The popliteal artery is also occluded. The tibioperoneal trunk was not well visualized. The dorsalis pedis, mid posterior tibial and anterior tibial arteries were not also well visualized, due to possible occlusion. Doppler waveform analysis is monophasic from posterior tibial artery possible runoff which is consistent with severe to critical ischemia at rest. ICU Nurse was notified of abnormal results at 1 AM.
--- NOTE | 2017-10-09 14:08 | Diagnostic Imaging Report ---
APPROVED REPORT CPT Code: 48185 Present Symptoms Comments: Left leg ulcers Tachy cardia Technically difficult/limited study due to BLE contracture of hip and knee. Severely contracted Cold left foot BILATERAL: Imaging reveals a patent deep venous system bilaterally. There is no evidence of thrombus within the femoral, popliteal or tibial segments. The greater saphenous veins are also within normal limits. Doppler indicates normal spontaneous flow within these segments. Incidental finding: The left superficial femoral artery to the popliteal artery appears to be occluded. ALIRIO Carter was notified at 1600 hours.
[2017-10-09] MEDS ORDERED: NS 275ml ONE (15:02)
[2017-10-09] MEDS ORDERED: Tubing IV Secondary IV ONE ×2 (15:02→15:03)
[2017-10-09] MEDS ORDERED: D5 1/2NS 1000ml IV ONE (15:02)
[2017-10-09] MEDS: Albuterol/Ipratropium 3ml neb HHN PRN (15:11)
[2017-10-09] MEDS: Zosyn 3.375gm q8h **Extended infusion IVPB SCH (16:31)
--- NOTE | 2017-10-09 23:45 | Consultation ---
DATE OF CONSULTATION: 10/08/2017 CARDIOLOGY CONSULTATION CONSULTING PHYSICIAN: Amari Rapp M.D. REQUESTING PHYSICIAN: Osbaldo Grullon M.D. REASON FOR CONSULTATION: Severe sepsis and atrial fibrillation. 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 She was brought to the emergency room because of altered mentation. She was found by family members to be confused, altered and poorly responsive. She did not have any recent complaints or any apparent constitutional symptoms. She was noted to be hypoglycemic on initial evaluation and was given D50, however her mental status failed to improve despite correction of her hypoglycemia. PATIENT'S PAST MEDICAL HISTORY: 1. Peripheral artery disease. 2. Prior angioplasty. 3. 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 4. Hypertensive heart disease. 5. Cerebrovascular accident. 6. Paroxysmal atrial fibrillation. 7. Asthma. 8. Type 2 diabetes mellitus. 9. Chronic kidney disease. 10. Diabetic neuropathy. ALLERGIES: Floxin antibiotics. MEDICATIONS: Prior to admission are reviewed and reconciled. SOCIAL HISTORY: Negative for smoking, alcohol, or substance abuse. FAMILY HISTORY: Noncontributory. REVIEW OF SYSTEMS: Not obtainable from the patient, however extensive review of prior records and hospitalization my office chart revealed the following data. The patient had a 2D echocardiogram within the last six months. Ejection fraction was normal. There was no significant pulmonary hypertension. There was concentric hypertrophy with normal wall motion. There was mild degenerative valve disease with regurgitation. There is no history of flow-limiting coronary artery disease. The patient has had multiple angioplasties of her lower extremities. The patient lives alone despite her physical constraints. PHYSICAL EXAMINATION: VITAL SIGNS: Temperature is 99.5, blood pressure 169/78, heart rate 123, and respiratory rate 29. HEENT: Normocephalic and atraumatic. Conjunctivae pink. Oropharynx clear. Mucous membranes dry. NECK: Supple. Jugular venous pressure is grossly normal. LUNGS: With clear breath sounds. CARDIAC: Reveals irregularly irregular rhythm. Normal S1 and S2. There is no appreciable murmur. ABDOMEN: Soft and nontender. No guarding or rebound. EXTREMITIES: With cool left lower extremity, otherwise trace edema and digits are mobile. NEUROLOGIC: Reveals her with baseline left hemiparesis. She withdraws to pain. LABORATORY DATA: White count is 23.6 and hemoglobin 11. Potassium 3.3, BUN 34, and creatinine 1.4. Lactic acid was normal at 0.8. Troponin is 0.047. CK-MB index was negative. Albumin is 2.4. IMPRESSION: 1. Sepsis. 2. Cellulitis. 3. Ischemic left limb. 4. Hypokalemia. 5. Acute myocardial ischemia. 6. Toxic and metabolic encephalopathy. 7. Paroxysmal atrial fibrillation. 8. Acute myocardial ischemia. 9. Severe protein-calorie malnutrition. 10. Type 2 diabetes mellitus with multiple complications. 11. Possible acute cerebrovascular insult. PLAN: 1. Volume resuscitation. 2. Broad-spectrum antibiotics. 3. Monitor acid-base parameters. 4. chest CT or MRI imaging of the brain, when feasible. 5. Vascular evaluation of lower extremity. 6. Rate control of atrial fibrillation with beta-blockers and IV diltiazem drip was initiated and will be discontinued as soon as rate control was achieved. 7. Cardioembolic prophylaxis for now with enoxaparin has been initiated. 8. The patient's condition is critical. 9. Prognosis is guarded. 10. Family members namely her son is aware. Amari Rapp M.D. DR: Francisco JOB#: [id number] CC:
--- NOTE | 2017-10-09 23:45 | Progress Note ---
DATE: 10/09/2017 CARDIOLOGY PROGRESS NOTE SUBJECTIVE: The patient remains in the intensive care unit. Condition remains critical. Prognosis remains guarded. The patient is on IV antibiotics and antiplatelet therapy. She has converted to sinus rhythm. Rate control is stable. The patient's left lower extremity remains cool to touch with significant ischemia that appears to be nonreversible according to the vascular surgery assessment. The patient also had an MRI of the brain, which preliminary finding is notable for no acute process. OBJECTIVE: VITAL SIGNS: Blood pressure 157/64, pulse 88, respirations 26, afebrile. GENERAL: Noncommunicative, responds to pain. HEENT: Oropharynx clear. NECK: Supple. LUNGS: Clear. CARDIAC: Regular. Normal S1 and S2 with a fourth heart sound. ABDOMEN: Soft. EXTREMITIES: Trace edema. Cool left limb. Baseline hemiparesis. LABORATORY DATA: Sodium 141, potassium 2.9, bicarbonate 23, BUN 20, and creatinine 1.1. Glucose 124. Albumin 1.7. IMPRESSION: 1. Ischemic left leg. 2. Sepsis. 3. Hypertensive heart disease. 4. Paroxysmal atrial fibrillation. 5. Hypokalemia. 6. Severe protein-calorie malnutrition. 7. Type 2 diabetes mellitus with complications as previously outlined. PLAN: 1. Intensive care unit care. 2. Volume support. 3. Insulin titration. 4. Antibiotics. 5. Continue beta-blockade. 6. Avoid tight blood pressure control. 7. Family members contemplating possible need for left limb amputation. Amari Rapp M.D. DR: Escobar JOB#: [id number] CC:
[2017-10-10] VITALS (24 sets, daily range): BP systolic 107–168; BP diastolic 36–72
--- NOTE | 2017-10-10 00:15 | Consultation ---
DATE OF CONSULTATION: 10/09/2017 INFECTIOUS DISEASES CONSULTATION CONSULTING PHYSICIAN: Tsering Dumont M.D. REFERRING PHYSICIAN: Osbaldo Grullon M.D. REASON FOR CONSULTATION: Leukocytosis and left leg cellulitis. HISTORY OF PRESENTING ILLNESS: This is an 82-year-old lady with history of diabetes, hypertension, CVA, and peripheral arterial disease, who came in with altered mental status. She was found to be hypoglycemic and she was also found to have a leukocytosis and a left leg cellulitis and an Infectious Diseases consultation has been obtained for antibiotics. PAST MEDICAL HISTORY: 1. History of diabetes. 2. Hypertension. 3. CVA. 4. Peripheral arterial disease. 5. Status post multiple angioplasty of the lower extremity. 6. History of craniotomy. MEDICATIONS: As an inpatient, the patient is on albuterol, Lovenox, Plavix, Protonix, IV vancomycin, Synthroid, Lopressor, gabapentin, Zosyn, insulin, Tylenol and clonidine. ALLERGIES: To ofloxacin noted. SOCIAL HISTORY: No history of smoking, alcohol, or drug use. FAMILY HISTORY: Unknown. REVIEW OF SYSTEMS: Unable to obtain currently. PHYSICAL EXAMINATION: VITAL SIGNS: Temperature of 98.6, T-max of 99.8, pulse of 72, respiratory rate 24, blood pressure 145/44, and O2 saturation of 100%. HEENT: Pupils are equally reactive to light and accommodation. Mouth appears clean without thrush. NECK: Supple. No adenopathy. No JVD. CARDIOVASCULAR: Regular rate and rhythm. No murmurs. LUNGS: Clear to auscultation bilaterally. No crackles. No wheezes. ABDOMEN: Soft and nontender. No organomegaly. EXTREMITIES: No cyanosis. No clubbing. No edema. Left leg erythema noted. LABORATORY AND DIAGNOSTIC DATA: White count of 23.6 yesterday and white count of 17.2 today, hemoglobin 10, hematocrit 33.1, MCV 96, platelet count of 320, and neutrophils of 95%. Sodium 141, potassium 2.9, chloride 107, bicarbonate 23, BUN 20, creatinine 1.1, and glucose 124. Calcium 8, total bilirubin 0.4, AST 32, ALT 18, alkaline phosphatase 66, total protein 5.6, albumin 1.7, and lipase of 78. Yesterday, UA showing 0 to [address] head showing no acute bleed, mass effect, or edema. Mild subdural hematomas in the bifrontal regions noted and mild atrophy of the brain noted. Chest x-ray showing abnormal soft tissue involving the pleura with thickening in the right lateral chest, which is chronic and difficult to exclude infiltrate. Abdominal x-ray showed NG tube in good position. ASSESSMENT: This is an 82-year-old lady with history of peripheral arterial disease, diabetes and hypertension, who comes in with leukocytosis and is found to have. 1. Left leg cellulitis. 2. We would like to rule out urinary tract infection or sepsis as a possibility. 3. Leukocytosis is improving. PLAN: 1. Continue vancomycin and Zosyn. 2. We will order blood cultures and urine cultures as well as sputum cultures. 3. We will follow up cultures and adjust antibiotics accordingly. I would like to thank, Dr. Grullon for this consultation. Tsering Dumont M.D. DR: ANTONINA JOB#: [id number] CC: Osbaldo Grullon M.D.
[2017-10-10] MEDS: Zosyn 3.375gm q8h **Extended infusion IVPB SCH ×3 (00:41→17:30)
--- NOTE | 2017-10-10 04:15 | Consultation ---
DATE OF CONSULTATION: 10/08/2017 VASCULAR SURGERY CONSULTATION CONSULTING PHYSICIAN: Renzo Vang M.D. REFERRING PHYSICIAN: Osbaldo Grullon M.D. REASON FOR EVALUATION: Cold, necrotic left leg. HISTORY OF PRESENT ILLNESS: This is an 82-year-old Turk[place] female, who is well known to our vascular service for many years. The patient presented with altered mental status, unresponsive, and low blood sugar. The patient is currently in the ICU at [facility], unresponsive with stable vitals. The patient per her son, Colten, has been complaining of pain in the legs for over a week. The patient now has a cold left leg with contracted knee with necrosis up to the mid calf and wounds on the toes and the calf. The patient has extensive vascular history with prior history of revascularization and very poor run off to the left foot. All the history is obtained from the medical records and on discussion with her son, Colten. PAST MEDICAL HISTORY: As above. History of diabetes mellitus, hypertension, calcific multilevel arterial occlusive disease, prior history of bilateral lower extremity leg revascularization, very poor run off to the left foot, prior history of amputation, history of fall, craniotomy for hematoma, and arthritis. MEDICATIONS: See attached MAR. ALLERGIES: No known drug allergies. SOCIAL HISTORY: No history of smoking, drugs, or alcohol abuse. She is a retired nurse. FAMILY HISTORY: Unremarkable. SYSTEM REVIEW: Unobtainable. The patient is obtunded. PHYSICAL EXAMINATION: GENERAL: She is obtunded, unresponsive, and grimaces to pain. VITAL SIGNS: The patient is afebrile at 97, heart rate is 60, blood pressure 140/70, and respirations 16. She is on oxygen face mask. LUNGS: Rhonchi bilaterally. HEART: Regular rate and rhythm. ABDOMEN: Soft and nontender. EXTREMITIES: She has palpable femoral pulses. Absent popliteal and pedal pulses bilaterally. Right foot is warm with no ulceration. Left foot is cold with early necrosis up to the calf with wounds on the calf and the toe with absent pedal pulses. There is severe left knee contracture. LABORATORY DATA: Laboratories reviewed. CT of the brain revealed no evidence of acute findings. IMPRESSION: 1. Non-salvageable left cold necrotic foot and leg and severely contracted left knee with very poor run off. 2. History of multilevel calcific arterial occlusive disease with prior history of revascularization. 3. Admitted with altered mental status, now unresponsive, rule out brain injury, encephalopathy, hypoglycemic, or hypoxemic injury. 4. History of diabetes mellitus with fluctuating sugar. 5. Hypertension. 6. Obesity. 7. Arthritis. PLAN: 1. We will obtain lower extremity arterial duplex. The patient should be on anticoagulation. We will place the patient on Lovenox 1 mg/kg subcutaneously q.12. 2. Medical cardiology optimization in progress. 3. Antibiotics per ID service. 4. Encephalopathy and Neurology workup in progress. 5. MRI of the brain pending. 6. EEG pending. 7. The patient will require left leg above-knee amputation once medically optimized for anesthesia and surgery. The above was discussed at length with the patient's son, Dr. Grullon, and the nurse at bedside. Renzo Bhat M.D. DR: ASHTYN JOB#: [id number] CC: Renzo Bhat M.D.; Fax#: [phone] Wendy Mcdermott M.D.
[2017-10-10 06:23] LABS: BASOPHILS % (AUTO) 0.5 % (0.0-2.0); EOSINOPHILS % (AUTO) 0.9 % (0.0-3.0); LYMPHOCYTES % (AUTO) 10.5 % (20.0-45.0); MEAN CORPUSCULAR HEMOGLOBIN 30.2 PG (27.0-31.0); MEAN CORPUSCULAR VOLUME 95 FL (80-99); MEAN PLATELET VOLUME 6.6 FL (6.5-10.1); MONOCYTES % (AUTO) 7.1 % (1.0-10.0); NEUTROPHILS % (AUTO) 81.1 % (45.0-75.0); PLATELET COUNT 360 K/UL (150-450); RED BLOOD COUNT 3.87 M/UL (4.20-5.40); RED CELL DISTRIBUTION WIDTH 13.3 % (11.6-14.8); WHITE BLOOD COUNT 11.2 K/UL (4.8-10.8)
[2017-10-10] MEDS: NovoLOG Insulin Flexpen SUBQ SCH ×4 (06:24→20:42)
[2017-10-10 08:04] LABS: ALANINE AMINOTRANSFERASE 22 U/L (12-78); ALBUMIN/GLOBULIN RATIO 0.6 (1.0-2.7); ANION GAP 10 mmol/L (5-15); ASPARTATE AMINO TRANSFERASE 30 U/L (15-37); CALCIUM 7.6 MG/DL (8.5-10.1); CARBON DIOXIDE 24 MMOL/L (21-32); CHLORIDE 109 MMOL/L (98-107); CREATININE 1.2 MG/DL (0.55-1.30); POTASSIUM 3.8 MMOL/L (3.5-5.1); SODIUM 143 MMOL/L (136-145)
[2017-10-10] MEDS: Vancomycin 1gm in D5W 275ml IVPB SCH (09:24)
[2017-10-10] MEDS: Metoprolol Tartrate 50mg tab ORAL SCH ×2 (09:24→20:40)
[2017-10-10] MEDS: Enoxaparin 60mg Inj SUBQ SCH ×2 (11:14→22:38)
--- NOTE | 2017-10-10 12:02 | Infectious Diseases Prog Note ---
Assessment/Plan Assessment/Plan antibiotics : vancomycin iv, zosyn A 1. left leg cellulitis 2. left toe necrotic ulcers 3. leucocytosis resolved 4. DM 5. HTN 6. peripheral arterial disease P 1. continue vancomycin iv, zosyn 2. will follow up cultures Subjective ROS Limited/Unobtainable: Yes Allergies: Coded Allergies: OFLOXACIN (Verified Allergy, Unknown, 10/19/15) Objective Vital Signs Last 24 Hour Vital Signs Date Time Temp Pulse Resp B/P (MAP) Pulse Ox O2 Delivery O2 Flow Rate FiO2 10/10/17 11: 165/44 10/10/17 10:00 60 24 160/69 100 Nasal Cannula 2.0 10/10/17 09:24 60 150/46 10/10/17 09:00 68 24 150/46 100 Nasal Cannula 2.0 10/10/17 08:00 59 10/10/17 08:00 98.2 69 26 155/42 100 Nasal Cannula 2.0 10/10/17 07:07 100 Nasal Cannula 2.0 28 10/10/17 07:07 57 20 Nasal Cannula 2.0 28 10/10/17 07:07 Nasal Cannula 2.0 28 10/10/17 07:00 64 22 137/36 100 Nasal Cannula 2.0 10/10/17 06:00 59 21 152/55 100 Nasal Cannula 2.0 10/10/17 05:00 69 26 126/72 98 Nasal Cannula 2.0 10/10/17 04:00 98.7 71 21 152/55 100 Nasal Cannula 2.0 10/10/17 03:07 60 10/10/17 03:00 61 21 134/45 100 Nasal Cannula 2.0 10/10/17 02:00 76 27 152/54 100 Nasal Cannula 2.0 10/10/17 01:00 56 22 141/42 100 Nasal Cannula 2.0 10/10/17 00:00 98.5 61 21 168/49 100 Nasal Cannula 2.0 10/09/17 23:14 59 10/09/17 23:00 60 23 142/52 100 Nasal Cannula 2.0 10/09/17 22:00 62 22 138/50 100 Nasal Cannula 2.0 10/09/17 21:00 68 23 157/45 100 Nasal Cannula 2.0 10/09/17 20:47 69 155/52 10/09/17 20:00 98.5 65 21 140/49 100 Nasal Cannula 2.0 10/09/17 19:30 68 10/09/17 19:03 Nasal Cannula 2.0 28 10/09/17 19:03 77 21 Nasal Cannula 2.0 28 10/09/17 19:03 99 Nasal Cannula 2.0 28 10/09/17 19:00 76 23 154/74 100 Nasal Cannula 2.0 10/09/17 18:22 172/55 10/09/17 18:00 70 23 172/55 100 Nasal Cannula 2.0 10/09/17 17:00 69 24 130/35 100 Nasal Cannula 2.0 10/09/17 16:25 Nasal Cannula 2.0 28 10/09/17 16:25 99 Nasal Cannula 2.0 28 10/09/17 16:00 59 10/09/17 16:00 98.6 74 24 144/72 100 Nasal Cannula 2.0 10/09/17 15:24 66 16 100 Nasal Cannula 2.0 28 10/09/17 15:12 28 10/09/17 15:12 64 24 Nasal Cannula 2.0 28 10/09/17 15:12 64 24 100 Nasal Cannula 2.0 28 10/09/17 15:00 60 20 156/58 100 Nasal Cannula 2.0 10/09/17 14:00 68 22 147/58 100 Nasal Cannula 2.0 10/09/17 13:00 68 22 150/46 100 Nasal Cannula 2.0 10/09/17 12:00 98.6 60 24 145/44 100 Nasal Cannula 2.0 10/09/17 12:00 72 Height (Feet): 5 Height (Inches): 2.00 Weight (Pounds): 126 Respiratory/Chest: lungs clear Cardiovascular: normal rate, regular rhythm, no gallop/murmur Abdomen: soft, non tender Extremities: no edema, other - left leg erythema decreasing, left 1st, 3rd, 4th toe necrotic ulcers Microbiology Date/Time Source Procedure Growth Status 10/08/17 08:45 Blood Blood Culture - Preliminary NO GROWTH AFTER 24 HOURS Resulted 10/08/17 08:45 Blood Blood Culture - Preliminary NO GROWTH AFTER 24 HOURS Resulted 10/08/17 13:55 Nasal Nares MRSA Culture - Final NO METHICILLIN RESISTANT STAPH AUREUS... Complete 10/09/17 15:30 Urine,Clean Catch Urine Culture - Preliminary Resulted 10/08/17 13:55 Rectum VRE Culture - Final NO VANCOMYCIN RESISTANT ENTEROCOCCUS ... Complete Laboratory Tests Test 10/10/17 06:00 White Blood Count 11.2 K/UL (4.8-10.8) H Red Blood Count 3.87 M/UL (4.20-5.40) L Hemoglobin 11.7 G/DL (12.0-16.0) L Hematocrit 36.6 % (37.0-47.0) L Mean Corpuscular Volume 95 FL (80-99) Mean Corpuscular Hemoglobin 30.2 PG (27.0-31.0) Mean Corpuscular Hemoglobin Concent 32.0 G/DL (32.0-36.0) Red Cell Distribution Width 13.3 % (11.6-14.8) Platelet Count 360 K/UL (150-450) Mean Platelet Volume 6.6 FL (6.5-10.1) Neutrophils (%) (Auto) 81.1 % (45.0-75.0) H Lymphocytes (%) (Auto) 10.5 % (20.0-45.0) L Monocytes (%) (Auto) 7.1 % (1.0-10.0) Eosinophils (%) (Auto) 0.9 % (0.0-3.0) Basophils (%) (Auto) 0.5 % (0.0-2.0) Sodium Level 143 MMOL/L (136-145) Potassium Level 3.8 MMOL/L (3.5-5.1) Chloride Level 109 MMOL/L (98-107) H Carbon Dioxide Level 24 MMOL/L (21-32) Anion Gap 10 mmol/L (5-15) Blood Urea Nitrogen 25 mg/dL (7-18) H Creatinine 1.2 MG/DL (0.55-1.30) Estimat Glomerular Filtration Rate mL/min (>60) Glucose Level 177 MG/DL (74-106) H Calcium Level 7.6 MG/DL (8.5-10.1) L Total Bilirubin 0.4 MG/DL (0.2-1.0) Aspartate Amino Transf (AST/SGOT) 30 U/L (15-37) Alanine Aminotransferase (ALT/SGPT) 22 U/L (12-78) Alkaline Phosphatase 77 U/L (46-116) Total Creatine Kinase 358 U/L (26-308) H Total Protein 5.0 G/DL (6.4-8.2) L Albumin 1.8 G/DL (3.4-5.0) L Globulin 3.2 g/dL Albumin/Globulin Ratio 0.6 (1.0-2.7) L HEATHER SHEPHERD Oct 10, 2017 12:02
[2017-10-10] MEDS ORDERED: D5NS 1000ml IV ONE (16:09)
[2017-10-10] MEDS ORDERED: NS 275ml ONE (16:09)
--- NOTE | 2017-10-10 22:45 | Progress Note ---
DATE: 10/10/2017 CARDIOLOGY PROGRESS NOTE SUBJECTIVE: The patient is more responsive, able to answer simple questions. She is tolerating NG-tube feedings. No apparent shortness of breath or respiratory distress. Saturating adequately on two liters nasal cannula. OBJECTIVE: VITAL SIGNS: Blood pressure 141/38, pulse 68, respirations 21, and afebrile. HEENT: Pale conjunctivae. Anicteric sclerae. Oropharynx clear. NECK: Supple. LUNGS: Good breath sounds. No wheezing or rales. CARDIAC: Regular rhythm and rate. Normal S1, S2 with a fourth heart sound. ABDOMEN: Soft, nontender. EXTREMITIES: With trace edema. Some cyanotic changes and gangrene of the toe. LABORATORY DATA: Albumin 1.8. Sodium 143, potassium 3.8, bicarbonate 24, BUN 25, and creatinine 1.2. White count is 11.2, hemoglobin 11.7. IMPRESSION: 1. Sepsis with shock, recovering. 2. Left lower extremity cellulitis. 3. Acute on chronic ischemia of left lower extremity with necrotic ulcers. 4. Type 2 diabetes mellitus. 5. Hypertensive cardiomyopathy. 6. Chronic kidney disease. 7. Prior cerebrovascular accident with left-sided paresis. 8. Paroxysmal atrial fibrillation. 9. History of intracranial bleed. PLAN: 1. Continued antibiotics. 2. Respiratory hygiene. 3. Hydration. 4. Nutrition by feeding tube. 5. Insulin titration. 6. Blood pressure medications to be titrated. 7. Avoid tight control to maximize peripheral perfusion. 8. No immediate plan for vascular intervention, however, may ultimately require amputation. Family is aware. 9. Avoiding anticoagulation in view of high risk of intracranial bleeding. Amari Rapp M.D. DR: REJI JOB#: [id number] CC:
[2017-10-11] VITALS (24 sets, daily range): BP systolic 136–187; BP diastolic 42–87
[2017-10-11] MEDS: Zosyn 3.375gm q8h **Extended infusion IVPB SCH ×3 (00:42→17:17)
[2017-10-11] MEDS: NovoLOG Insulin Flexpen SUBQ SCH ×4 (06:13→21:05)
[2017-10-11] MEDS: Vancomycin 1gm in D5W 275ml IVPB SCH (09:14)
[2017-10-11] MEDS: Metoprolol Tartrate 50mg tab ORAL SCH ×2 (09:38→21:04)
--- NOTE | 2017-10-11 10:12 | Infectious Diseases Prog Note ---
Assessment/Plan Assessment/Plan A: 1. left leg cellulitis 2. left toe necrotic ulcers 3. leucocytosis resolved 4. DM 5. HPN 6. peripheral arterial disease P 1. continue vancomycin iv, Zosyn 2. will follow up cultures Subjective ROS Limited/Unobtainable: Yes Neurologic: Reports: other - more responsive today Allergies: Coded Allergies: OFLOXACIN (Verified Allergy, Unknown, 10/19/15) Objective Vital Signs Last 24 Hour Vital Signs Date Time Temp Pulse Resp B/P (MAP) Pulse Ox O2 Delivery O2 Flow Rate FiO2 10/11/17 09:38 75 162/52 10/11/17 09:00 64 23 162/52 100 Nasal Cannula 2.0 10/11/17 08:00 77 10/11/17 08:00 98.7 66 25 153/47 100 Nasal Cannula 2.0 10/11/17 07:15 100 Nasal Cannula 2.0 28 10/11/17 07:15 Nasal Cannula 2.0 28 10/11/17 07:15 62 23 Nasal Cannula 2.0 28 10/11/17 07:00 63 23 153/45 100 Nasal Cannula 2.0 10/11/17 06:00 64 24 153/46 100 Nasal Cannula 2.0 10/11/17 05:49 59 10/11/17 05:00 64 24 153/50 100 Nasal Cannula 2.0 10/11/17 04:00 98.8 69 25 168/47 99 Nasal Cannula 2.0 10/11/17 03:00 73 27 151/47 99 Nasal Cannula 2.0 10/11/17 02:00 69 24 151/52 99 Nasal Cannula 2.0 10/11/17 01:00 64 21 141/45 100 Nasal Cannula 2.0 10/11/17 00:00 98.7 66 24 143/45 99 Nasal Cannula 2.0 10/10/17 23:54 65 10/10/17 23:00 75 27 145/44 98 Nasal Cannula 2.0 10/10/17 22:00 70 25 152/43 99 Nasal Cannula 2.0 10/10/17 21:00 74 26 160/47 100 Nasal Cannula 2.0 10/10/17 20:40 72 148/46 10/10/17 20:19 60 10/10/17 20:00 98.1 59 20 135/39 100 Nasal Cannula 2.0 10/10/17 19:00 60 19 141/38 100 Nasal Cannula 2.0 10/10/17 19:00 58 21 Nasal Cannula 2.0 28 10/10/17 19:00 Nasal Cannula 2.0 28 10/10/17 19:00 100 Nasal Cannula 2.0 28 10/10/17 18:00 57 19 133/39 100 Nasal Cannula 2.0 10/10/17 17:00 57 20 146/58 100 Nasal Cannula 2.0 10/10/17 16:00 98.1 64 19 139/41 100 Nasal Cannula 2.0 10/10/17 16:00 64 10/10/17 15:00 53 19 132/41 100 Nasal Cannula 2.0 10/10/17 14:00 51 19 107/37 100 Nasal Cannula 2.0 10/10/17 13:00 55 21 158/58 100 Nasal Cannula 2.0 10/10/17 12:00 71 10/10/17 12:00 98.1 60 18 147/56 100 Nasal Cannula 2.0 10/10/17 11:17 165/44 10/10/17 11:00 60 19 165/45 100 Nasal Cannula 2.0 Height (Feet): 5 Height (Inches): 2.00 Weight (Pounds): 138 General Appearance: no acute distress HEENT: other - NG tube Respiratory/Chest: lungs clear Cardiovascular: normal rate Abdomen: soft, non tender Extremities: no edema, other - left foot opened blisters, left leg is warm Neurologic/Psychiatric: alert, responsive Microbiology Date/Time Source Procedure Growth Status 10/10/17 06:00 Blood Blood Culture - Preliminary NO GROWTH AFTER 24 HOURS Resulted 10/09/17 15:00 Sputum Gram Stain - Final Resulted 10/09/17 15:00 Sputum Sputum Culture - Preliminary NO GROWTH Resulted 10/08/17 13:55 Nasal Nares MRSA Culture - Final NO METHICILLIN RESISTANT STAPH AUREUS... Complete 10/09/17 15:30 Urine,Clean Catch Urine Culture - Preliminary Resulted 10/08/17 13:55 Rectum VRE Culture - Final NO VANCOMYCIN RESISTANT ENTEROCOCCUS ... Complete Laboratory Tests Test 10/11/17 08:30 Vancomycin Level Trough 11.4 ug/mL (5.0-12.0) Current Medications Medications (Trade) Dose Ordered Sig/Pradip Route PRN Reason Start Time Stop Time Status Last Admin Dose Admin Acetaminophen (Tylenol) 650 mg Q6H PRN ORAL Prn Pain/Headache/Temp > 101 10/08/17 13:00 11/07/17 12:59 Albuterol/ Ipratropium (Albuterol/ Ipratropium) 3 ml Q4H PRN HHN Shortness of Breath 10/09/17 11:45 10/14/17 11:44 10/09/17 15:11 Clonidine HCl (Catapres) 0.1 mg Q4H PRN ORAL For High Blood Pressure 10/08/17 13:00 11/07/17 12:59 10/10/17 11:17 Clopidogrel Bisulfate (Plavix) 75 mg DAILY ORAL 10/09/17 09:00 11/08/17 08:59 10/11/17 09:15 Dextrose (Dextrose 50%) STAT PRN IV Hypoglycemia 10/08/17 13:00 11/07/17 12:59 Enoxaparin Sodium (Lovenox) 60 mg Q12H SUBQ 10/09/17 11:00 11/08/17 10:59 10/10/17 22:38 Gabapentin (Neurontin) 600 mg BID ORAL 10/08/17 18:00 11/07/17 17:59 10/11/17 09:37 Insulin Aspart (NovoLOG) BEFORE MEALS AND HS SUBQ 10/08/17 16:30 11/07/17 16:29 10/11/17 06:13 Levothyroxine Sodium (Synthroid) 50 mcg BEFORE BREAKFAST ORAL 10/09/17 06:30 11/08/17 06:29 10/11/17 06:11 Metoprolol Tartrate (Lopressor) 50 mg EVERY 12 HOURS ORAL 10/08/17 21:00 11/08/17 08:59 10/11/17 09:38 Pantoprazole (Protonix) 40 mg DAILY ORAL 10/09/17 09:00 11/08/17 08:59 10/11/17 09:15 Piperacillin/ Tazobactam/ Dextrose 50 ml @ 12.5 mls/hr Q8HR@0100,0900,1700 IVPB 10/09/17 17:00 10/16/17 16:59 10/11/17 09:14 Vancomycin HCl (Vanco rx to dose) 1 ea DAILY PRN MISC Per rx protocol 10/08/17 13:00 11/07/17 12:59 Vancomycin HCl 1 gm/Dextrose 275 ml @ 183.708 mls/hr Q24H IVPB 10/09/17 09:00 10/14/17 08:59 10/11/17 09:14 ADRIANNA BRUNO Oct 11, 2017 10:12
[2017-10-11] MEDS: Enoxaparin 60mg Inj SUBQ SCH ×2 (11:46→22:35)
--- NOTE | 2017-10-11 13:06 | General Progress Note ---
Assessment/Plan Problem List: (1) Ischemia of foot ICD Codes: I99.8 - Other disorder of circulatory system SNOMED: 551760694, 257404084 (2) Hypoglycemia ICD Codes: E16.2 - Hypoglycemia SNOMED: 806373982 (3) Diabetes mellitus ICD Codes: E11.9 - Diabetes mellitus SNOMED: 90273299 (4) CKD (chronic kidney disease) ICD Codes: N18.9 - CKD (chronic kidney disease) SNOMED: 818791923 (5) L leg cellulitis Status: stable Assessment/Plan iv abx ivf antiplt rx ppi rx vascular eval for amputation critical and gaurded Subjective ROS Limited/Unobtainable: Yes Constitutional: Reports: no symptoms HEENT: Reports: no symptoms Cardiovascular: Reports: no symptoms Respiratory: Reports: cough Gastrointestinal/Abdominal: Reports: difficulty swallowing Genitourinary: Reports: no symptoms Neurologic/Psychiatric: Reports: pre-existing deficit Endocrine: Reports: no symptoms Hematologic/Lymphatic: Reports: no symptoms Allergies: Coded Allergies: OFLOXACIN (Verified Allergy, Unknown, 10/19/15) All Systems: reviewed and negative except above Subjective no events. more responsive per family. they want to proceed with amputation Objective Last 24 Hour Vital Signs Date Time Temp Pulse Resp B/P (MAP) Pulse Ox O2 Delivery O2 Flow Rate FiO2 10/11/17 12:38 165/43 10/11/17 12:00 61 10/11/17 12:00 98.4 60 21 164/43 100 Nasal Cannula 2.0 10/11/17 11:00 64 24 168/51 100 Nasal Cannula 2.0 10/11/17 10:00 66 25 153/47 100 Nasal Cannula 2.0 10/11/17 09:38 75 162/52 10/11/17 09:00 64 23 162/52 100 Nasal Cannula 2.0 10/11/17 08:00 77 10/11/17 08:00 98.7 66 25 153/47 100 Nasal Cannula 2.0 10/11/17 07:15 100 Nasal Cannula 2.0 28 10/11/17 07:15 Nasal Cannula 2.0 28 10/11/17 07:15 62 23 Nasal Cannula 2.0 28 10/11/17 07:00 63 23 153/45 100 Nasal Cannula 2.0 10/11/17 06:00 64 24 153/46 100 Nasal Cannula 2.0 10/11/17 05:49 59 10/11/17 05:00 64 24 153/50 100 Nasal Cannula 2.0 10/11/17 04:00 98.8 69 25 168/47 99 Nasal Cannula 2.0 10/11/17 03:00 73 27 151/47 99 Nasal Cannula 2.0 10/11/17 02:00 69 24 151/52 99 Nasal Cannula 2.0 10/11/17 01:00 64 21 141/45 100 Nasal Cannula 2.0 10/11/17 00:00 98.7 66 24 143/45 99 Nasal Cannula 2.0 10/10/17 23:54 65 10/10/17 23:00 75 27 145/44 98 Nasal Cannula 2.0 10/10/17 22:00 70 25 152/43 99 Nasal Cannula 2.0 10/10/17 21:00 74 26 160/47 100 Nasal Cannula 2.0 10/10/17 20:40 72 148/46 10/10/17 20:19 60 10/10/17 20:00 98.1 59 20 135/39 100 Nasal Cannula 2.0 10/10/17 19:00 60 19 141/38 100 Nasal Cannula 2.0 10/10/17 19:00 58 21 Nasal Cannula 2.0 28 10/10/17 19:00 Nasal Cannula 2.0 28 10/10/17 19:00 100 Nasal Cannula 2.0 28 10/10/17 18:00 57 19 133/39 100 Nasal Cannula 2.0 10/10/17 17:00 57 20 146/58 100 Nasal Cannula 2.0 10/10/17 16:00 98.1 64 19 139/41 100 Nasal Cannula 2.0 10/10/17 16:00 64 10/10/17 15:00 53 19 132/41 100 Nasal Cannula 2.0 10/10/17 14:00 51 19 107/37 100 Nasal Cannula 2.0 Intake and Output 10/11/17 10/12/17 19:00 07:00 Intake Total 624.916 ml Output Total 60 ml Balance 564.916 ml IV Total 404.916 ml Tube Feeding 220 ml Output Urine Total 60 ml # Bowel Movements 1 Laboratory Tests 10/11/17 08:30: Vancomycin Level Trough 11.4 Height (Feet): 5 Height (Inches): 2.00 Weight (Pounds): 138 General Appearance: WD/WN, lethargic, confused Neck: supple Cardiovascular: normal peripheral pulses, normal rate, regular rhythm Respiratory/Chest: chest wall non-tender, lungs clear, normal breath sounds, no respiratory distress Abdomen: normal bowel sounds, non tender, soft, no organomegaly Extremities: normal range of motion Edema: no edema noted Arm (L), no edema noted Arm (R), no edema noted Leg (L), no edema noted Leg (R), no edema noted Pedal (L), no edema noted Pedal (R), no edema noted Generalized Neurologic: responsive, disoriented ANSON PARRISH Oct 11, 2017 13:06
[2017-10-11] MEDS: HydrALAZINE 10mg Tab ORAL PRN ×2 (13:48→23:19)
[2017-10-11] MEDS: Albuterol/Ipratropium 3ml neb HHN PRN (23:31)
--- NOTE | 2017-10-11 23:45 | Progress Note ---
DATE: 10/11/2017 CARDIOLOGY PROGRESS NOTE SUBJECTIVE: The patient remains in the intensive care unit in critical condition with guarded prognosis. She is more alert and responsive since yesterday. OBJECTIVE: VITAL SIGNS: Blood pressure 153/47 to 162/52, heart rate 64-75, respiratory rate 23-25, temperature 98.7, oxygen 2 L nasal cannula with 100% saturation, monitored rhythm sinus. HEENT: Conjunctivae are pink. Oropharynx clear. NECK: Supple. LUNGS: Clear. CARDIAC: Regular rhythm and rate. Normal S1, S2. Fourth heart sound. ABDOMEN: Soft. EXTREMITIES: With cool left leg, open blisters distally, and ischemic changes. Trace edema. LABORATORY DATA: Pending. IMPRESSION: 1. Toxic and metabolic encephalopathy, improving. 2. Hypokalemia, corrected. 3. Severe protein-calorie malnutrition. 4. Acute on chronic ischemia of left limb, likely non-salvageable. 5. Paroxysmal atrial fibrillation. 6. Prior cerebrovascular accident with hemiparesis. 7. Hypertensive heart disease with labile blood pressure. 8. Chronic diastolic congestive heart failure. 9. Type 2 diabetes mellitus with multiple complications. 10. Recovering sepsis due to left lower extremity cellulitis. PLAN: Continue antibiotics. Avoid tight blood pressure control to maximize peripheral perfusion. Maintain adequate hydration, skin care. Vascular followup. Full anticoagulation with Lovenox. Antiplatelet therapy with clopidogrel. Insulin titration by sliding scale. Maintain beta-blockade. Amari Rapp M.D. DR: Sheldon JOB#: [id number] CC:
[2017-10-12] VITALS (19 sets, daily range): BP systolic 100–184; BP diastolic 39–71
[2017-10-12] MEDS: Zosyn 3.375gm q8h **Extended infusion IVPB SCH ×2 (00:40→08:14)
[2017-10-12 05:57] LABS: BASOPHILS % (AUTO) 0.5 % (0.0-2.0); EOSINOPHILS % (AUTO) 0.9 % (0.0-3.0); LYMPHOCYTES % (AUTO) 11.1 % (20.0-45.0); MEAN CORPUSCULAR HEMOGLOBIN 30.3 PG (27.0-31.0); MEAN CORPUSCULAR HGB CONC 31.6 G/DL (32.0-36.0); MEAN CORPUSCULAR VOLUME 96 FL (80-99); MEAN PLATELET VOLUME 6.4 FL (6.5-10.1); MONOCYTES % (AUTO) 7.3 % (1.0-10.0); NEUTROPHILS % (AUTO) 80.2 % (45.0-75.0); PLATELET COUNT 321 K/UL (150-450); RED BLOOD COUNT 3.51 M/UL (4.20-5.40); WHITE BLOOD COUNT 11.3 K/UL (4.8-10.8)
[2017-10-12 05:59] LABS: ALANINE AMINOTRANSFERASE 22 U/L (12-78); ALBUMIN/GLOBULIN RATIO 0.4 (1.0-2.7); ANION GAP 4 mmol/L (5-15); ASPARTATE AMINO TRANSFERASE 38 U/L (15-37); CALCIUM 8.5 MG/DL (8.5-10.1); CARBON DIOXIDE 31 MMOL/L (21-32); CHLORIDE 107 MMOL/L (98-107); CREATININE 1.2 MG/DL (0.55-1.30); POTASSIUM 4.4 MMOL/L (3.5-5.1); SODIUM 142 MMOL/L (136-145); TOTAL PROTEIN 5.6 G/DL (6.4-8.2)
[2017-10-12] MEDS: NovoLOG Insulin Flexpen SUBQ SCH ×4 (06:17→20:33)
[2017-10-12] MEDS: HydrALAZINE 10mg Tab ORAL PRN ×2 (06:50→14:12)
[2017-10-12] MEDS: Metoprolol Tartrate 50mg tab ORAL SCH (08:14)
[2017-10-12] MEDS: Vancomycin 1gm in D5W 275ml IVPB SCH (08:14)
--- NOTE | 2017-10-12 08:35 | General Progress Note ---
Assessment/Plan Problem List: (1) Ischemia of foot ICD Codes: I99.8 - Other disorder of circulatory system SNOMED: 819152827, 813208904 (2) Hypoglycemia ICD Codes: E16.2 - Hypoglycemia SNOMED: 914139697 (3) Diabetes mellitus ICD Codes: E11.9 - Diabetes mellitus SNOMED: 98847039 (4) CKD (chronic kidney disease) ICD Codes: N18.9 - CKD (chronic kidney disease) SNOMED: 787460573 (5) L leg cellulitis Status: stable, progressing Assessment/Plan iv abx ivf antiplt rx ppi rx vascular eval for amputation to see later today hold plavix and lovenox prior to surgery critical and gaurded Subjective ROS Limited/Unobtainable: Yes Constitutional: Reports: malaise, weakness HEENT: Reports: no symptoms Cardiovascular: Reports: no symptoms Respiratory: Reports: no symptoms Gastrointestinal/Abdominal: Reports: difficulty swallowing Genitourinary: Reports: no symptoms Neurologic/Psychiatric: Reports: no symptoms Endocrine: Reports: no symptoms Hematologic/Lymphatic: Reports: no symptoms Allergies: Coded Allergies: OFLOXACIN (Verified Allergy, Unknown, 10/19/15) All Systems: reviewed and negative except above Subjective no events. more responsive per family. they want to proceed with amputation. on ngt feeds. no fevers. wbc trending down Objective Last 24 Hour Vital Signs Date Time Temp Pulse Resp B/P (MAP) Pulse Ox O2 Delivery O2 Flow Rate FiO2 10/12/17 08:14 63 165/48 10/12/17 08:00 97.8 78 27 165/48 99 Nasal Cannula 1.0 10/12/17 07:16 100 Nasal Cannula 1.0 24 10/12/17 07:16 Nasal Cannula 1.0 24 10/12/17 07:16 69 26 Nasal Cannula 1.0 24 10/12/17 07:00 78 25 182/52 99 Nasal Cannula 1.0 10/12/17 06:50 172/43 10/12/17 06:00 77 26 165/64 99 Nasal Cannula 1.0 10/12/17 05:30 76 23 165/46 99 Nasal Cannula 1.0 10/12/17 05:11 184/52 10/12/17 05:00 75 23 184/52 100 Nasal Cannula 1.0 10/12/17 04:00 98.5 80 22 166/49 100 Nasal Cannula 1.0 10/12/17 03:51 78 10/12/17 03:00 79 27 162/48 100 Nasal Cannula 1.0 10/12/17 02:00 69 25 148/41 100 Nasal Cannula 1.0 10/12/17 01:00 72 22 140/39 99 Nasal Cannula 1.0 10/12/17 00:05 78 10/12/17 00:00 97.8 75 24 127/42 99 Nasal Cannula 1.0 10/11/17 23:41 67 25 100 Nasal Cannula 1.0 24 10/11/17 23:30 72 21 100 Nasal Cannula 1.0 24 10/11/17 23:19 171/47 10/11/17 23:00 69 25 171/47 99 Nasal Cannula 1.0 10/11/17 22:00 70 28 164/55 99 Nasal Cannula 2.0 10/11/17 21:37 187/65 10/11/17 21:04 80 157/49 10/11/17 21:00 72 27 187/65 99 Nasal Cannula 2.0 10/11/17 20:00 100 Nasal Cannula 1.0 24 10/11/17 20:00 Nasal Cannula 1.0 24 10/11/17 20:00 70 10/11/17 20:00 76 19 Nasal Cannula 2.0 28 10/11/17 20:00 97.9 70 26 157/49 100 Nasal Cannula 2.0 10/11/17 19:00 74 26 166/55 100 Nasal Cannula 2.0 10/11/17 18:00 66 26 156/52 100 Nasal Cannula 2.0 10/11/17 17:00 69 25 165/60 100 Nasal Cannula 2.0 10/11/17 16:00 62 10/11/17 16:00 98.2 60 23 142/87 100 Nasal Cannula 2.0 10/11/17 15:00 62 21 151/55 100 Nasal Cannula 2.0 10/11/17 14:47 98.4 10/11/17 14:00 57 21 136/42 100 Nasal Cannula 2.0 10/11/17 13:48 168/69 10/11/17 13:00 64 25 168/69 100 Nasal Cannula 2.0 10/11/17 12:38 165/43 10/11/17 12:00 61 10/11/17 12:00 98.4 60 21 164/43 100 Nasal Cannula 2.0 10/11/17 11:00 64 24 168/51 100 Nasal Cannula 2.0 10/11/17 10:00 66 25 153/47 100 Nasal Cannula 2.0 10/11/17 09:38 75 162/52 10/11/17 09:00 64 23 162/52 100 Nasal Cannula 2.0 Intake and Output 10/12/17 10/13/17 19:00 07:00 Intake Total 55 ml Output Total 0 ml Balance 55 ml Tube Feeding 55 ml Output Urine Total 0 ml Laboratory Tests 10/12/17 04:15: White Blood Count 11.3H, Red Blood Count 3.51L, Hemoglobin 10.6L, Hematocrit 33.7L, Mean Corpuscular Volume 96, Mean Corpuscular Hemoglobin 30.3, Mean Corpuscular Hemoglobin Concent 31.6L, Red Cell Distribution Width 13.0, Platelet Count 321, Mean Platelet Volume 6.4L, Neutrophils (%) (Auto) 80.2H, Lymphocytes (%) (Auto) 11.1L, Monocytes (%) (Auto) 7.3, Eosinophils (%) (Auto) 0.9, Basophils (%) (Auto) 0.5, Sodium Level 142, Potassium Level 4.4, Chloride Level 107, Carbon Dioxide Level 31, Anion Gap 4L, Blood Urea Nitrogen 30H, Creatinine 1.2, Estimat Glomerular Filtration Rate , Glucose Level 263H, Calcium Level 8.5, Magnesium Level 1.8, Total Bilirubin 0.3, Aspartate Amino Transf (AST/SGOT) 38H, Alanine Aminotransferase (ALT/SGPT) 22, Alkaline Phosphatase 73, Total Protein 5.6L, Albumin 1.7L, Globulin 3.9, Albumin/ Globulin Ratio 0.4L Height (Feet): 5 Height (Inches): 2.00 Weight (Pounds): 138 Objective General Appearance: WD/WN, lethargic, confused Neck: supple Cardiovascular: normal peripheral pulses, normal rate, regular rhythm Respiratory/Chest: chest wall non-tender, lungs clear, normal breath sounds, no respiratory distress Abdomen: normal bowel sounds, non tender, soft, no organomegaly Extremities: normal range of motion. Left LE cool. +erythema. skin abrasion to toes. no pulse Edema: no edema noted Arm (L), no edema noted Arm (R), no edema noted Leg (L), no edema noted Leg (R), no edema noted Pedal (L), no edema noted Pedal (R), no edema noted Generalized Neurologic: responsive, disoriented ANSON PARRISH Oct 12, 2017 08:35
--- NOTE | 2017-10-12 09:33 | Infectious Diseases Prog Note ---
Assessment/Plan Assessment/Plan A: 1. left leg cellulitis 2. left toe necrotic ulcers 3. leucocytosis improved 4. DM 5. HPN 6. peripheral arterial disease 7. diarrhea P 1. continue vancomycin iv, Zosyn 2. stool for C. difficile Subjective ROS Limited/Unobtainable: Yes Neurologic: Reports: confusion Allergies: Coded Allergies: OFLOXACIN (Verified Allergy, Unknown, 10/19/15) Objective Vital Signs Last 24 Hour Vital Signs Date Time Temp Pulse Resp B/P (MAP) Pulse Ox O2 Delivery O2 Flow Rate FiO2 10/12/17 09:12 181/49 10/12/17 09:00 64 25 181/49 99 Nasal Cannula 1.0 10/12/17 08:14 63 165/48 10/12/17 08:00 97.8 78 27 165/48 99 Nasal Cannula 1.0 10/12/17 08:00 66 10/12/17 07:16 100 Nasal Cannula 1.0 24 10/12/17 07:16 Nasal Cannula 1.0 24 10/12/17 07:16 69 26 Nasal Cannula 1.0 24 10/12/17 07:00 78 25 182/52 99 Nasal Cannula 1.0 10/12/17 06:50 172/43 10/12/17 06:00 77 26 165/64 99 Nasal Cannula 1.0 10/12/17 05:30 76 23 165/46 99 Nasal Cannula 1.0 10/12/17 05:11 184/52 10/12/17 05:00 75 23 184/52 100 Nasal Cannula 1.0 10/12/17 04:00 98.5 80 22 166/49 100 Nasal Cannula 1.0 10/12/17 03:51 78 10/12/17 03:00 79 27 162/48 100 Nasal Cannula 1.0 10/12/17 02:00 69 25 148/41 100 Nasal Cannula 1.0 10/12/17 01:00 72 22 140/39 99 Nasal Cannula 1.0 10/12/17 00:05 78 10/12/17 00:00 97.8 75 24 127/42 99 Nasal Cannula 1.0 10/11/17 23:41 67 25 100 Nasal Cannula 1.0 24 10/11/17 23:30 72 21 100 Nasal Cannula 1.0 24 10/11/17 23:19 171/47 10/11/17 23:00 69 25 171/47 99 Nasal Cannula 1.0 10/11/17 22:00 70 28 164/55 99 Nasal Cannula 2.0 10/11/17 21:37 187/65 10/11/17 21:04 80 157/49 10/11/17 21:00 72 27 187/65 99 Nasal Cannula 2.0 10/11/17 20:00 100 Nasal Cannula 1.0 24 10/11/17 20:00 Nasal Cannula 1.0 24 10/11/17 20:00 70 10/11/17 20:00 76 19 Nasal Cannula 2.0 28 10/11/17 20:00 97.9 70 26 157/49 100 Nasal Cannula 2.0 10/11/17 19:00 74 26 166/55 100 Nasal Cannula 2.0 10/11/17 18:00 66 26 156/52 100 Nasal Cannula 2.0 10/11/17 17:00 69 25 165/60 100 Nasal Cannula 2.0 10/11/17 16:00 62 10/11/17 16:00 98.2 60 23 142/87 100 Nasal Cannula 2.0 10/11/17 15:00 62 21 151/55 100 Nasal Cannula 2.0 10/11/17 14:47 98.4 10/11/17 14:00 57 21 136/42 100 Nasal Cannula 2.0 10/11/17 13:48 168/69 10/11/17 13:00 64 25 168/69 100 Nasal Cannula 2.0 10/11/17 12:38 165/43 10/11/17 12:00 61 10/11/17 12:00 98.4 60 21 164/43 100 Nasal Cannula 2.0 10/11/17 11:00 64 24 168/51 100 Nasal Cannula 2.0 10/11/17 10:00 66 25 153/47 100 Nasal Cannula 2.0 10/11/17 09:38 75 162/52 Height (Feet): 5 Height (Inches): 2.00 Weight (Pounds): 138 HEENT: other - NG tube Respiratory/Chest: decreased breath sounds, other - O2 by cannula Cardiovascular: normal rate Abdomen: soft, non tender Extremities: no edema Skin: ulcers, other - ishemic changes in left leg Microbiology Date/Time Source Procedure Growth Status 10/10/17 06:00 Blood Blood Culture - Preliminary NO GROWTH AFTER 24 HOURS Resulted 10/09/17 15:00 Sputum Gram Stain - Final Complete 10/09/17 15:00 Sputum Sputum Culture - Final NORMAL UPPER RESPIRATORY LORE PRESENT Complete 10/09/17 15:30 Urine,Clean Catch Urine Culture - Preliminary YEAST Resulted Laboratory Tests Test 10/12/17 04:15 White Blood Count 11.3 K/UL (4.8-10.8) H Red Blood Count 3.51 M/UL (4.20-5.40) L Hemoglobin 10.6 G/DL (12.0-16.0) L Hematocrit 33.7 % (37.0-47.0) L Mean Corpuscular Volume 96 FL (80-99) Mean Corpuscular Hemoglobin 30.3 PG (27.0-31.0) Mean Corpuscular Hemoglobin Concent 31.6 G/DL (32.0-36.0) L Red Cell Distribution Width 13.0 % (11.6-14.8) Platelet Count 321 K/UL (150-450) Mean Platelet Volume 6.4 FL (6.5-10.1) L Neutrophils (%) (Auto) 80.2 % (45.0-75.0) H Lymphocytes (%) (Auto) 11.1 % (20.0-45.0) L Monocytes (%) (Auto) 7.3 % (1.0-10.0) Eosinophils (%) (Auto) 0.9 % (0.0-3.0) Basophils (%) (Auto) 0.5 % (0.0-2.0) Sodium Level 142 MMOL/L (136-145) Potassium Level 4.4 MMOL/L (3.5-5.1) Chloride Level 107 MMOL/L (98-107) Carbon Dioxide Level 31 MMOL/L (21-32) Anion Gap 4 mmol/L (5-15) L Blood Urea Nitrogen 30 mg/dL (7-18) H Creatinine 1.2 MG/DL (0.55-1.30) Estimat Glomerular Filtration Rate mL/min (>60) Glucose Level 263 MG/DL (74-106) H Calcium Level 8.5 MG/DL (8.5-10.1) Magnesium Level 1.8 MG/DL (1.8-2.4) Total Bilirubin 0.3 MG/DL (0.2-1.0) Aspartate Amino Transf (AST/SGOT) 38 U/L (15-37) H Alanine Aminotransferase (ALT/SGPT) 22 U/L (12-78) Alkaline Phosphatase 73 U/L (46-116) Total Protein 5.6 G/DL (6.4-8.2) L Albumin 1.7 G/DL (3.4-5.0) L Globulin 3.9 g/dL Albumin/Globulin Ratio 0.4 (1.0-2.7) L Current Medications Medications (Trade) Dose Ordered Sig/Pradip Route PRN Reason Start Time Stop Time Status Last Admin Dose Admin Acetaminophen (Tylenol) 650 mg Q6H PRN ORAL Prn Pain/Headache/Temp > 101 10/08/17 13:00 11/07/17 12:59 10/11/17 23:21 Albuterol/ Ipratropium (Albuterol/ Ipratropium) 3 ml Q4H PRN HHN Shortness of Breath 10/09/17 11:45 10/14/17 11:44 10/11/17 23:31 Clonidine HCl (Catapres) 0.1 mg Q4H PRN ORAL For High Blood Pressure 10/08/17 13:00 11/07/17 12:59 10/12/17 09:12 Dextrose (Dextrose 50%) STAT PRN IV Hypoglycemia 10/08/17 13:00 11/07/17 12:59 Gabapentin (Neurontin) 600 mg BID ORAL 10/08/17 18:00 11/07/17 17:59 10/12/17 08:14 Hydralazine HCl (Apresoline) 10 mg Q6H PRN ORAL SBP above 165 10/11/17 12:30 11/10/17 12:29 10/12/17 06:50 Insulin Aspart (NovoLOG) BEFORE MEALS AND HS SUBQ 10/08/17 16:30 11/07/17 16:29 10/12/17 06:17 Lansoprazole (Prevacid) 30 mg DAILY ORAL 10/12/17 09:00 11/11/17 08:59 10/12/17 08:18 Levothyroxine Sodium (Synthroid) 50 mcg BEFORE BREAKFAST ORAL 10/09/17 06:30 11/08/17 06:29 10/12/17 06:16 Metoprolol Tartrate (Lopressor) 50 mg EVERY 12 HOURS ORAL 10/08/17 21:00 11/08/17 08:59 10/12/17 08:14 Piperacillin/ Tazobactam/ Dextrose 50 ml @ 12.5 mls/hr Q8HR@0100,0900,1700 IVPB 10/09/17 17:00 10/16/17 16:59 10/12/17 08:14 Vancomycin HCl (Vanco rx to dose) 1 ea DAILY PRN MISC Per rx protocol 10/08/17 13:00 11/07/17 12:59 Vancomycin HCl 1 gm/Dextrose 275 ml @ 183.708 mls/hr Q24H IVPB 10/09/17 09:00 10/14/17 08:59 10/12/17 08:14 ADRIANNA BRUNO Oct 12, 2017 09:33
[2017-10-12] MEDS ORDERED: Albuterol/Ipratropium 3ml neb HHN PRN (17:00)
[2017-10-12] MEDS ORDERED: Zosyn 3.375gm/50ml Premix 50 ML IVPB SCH (17:00)
[2017-10-12] MEDS: Metoprolol Tartrate 50mg tab GT SCH (20:30)
[2017-10-13] VITALS (7 sets, daily range): BP systolic 140–171; BP diastolic 63–82
[2017-10-13] MEDS ORDERED: Piperacillin/Tazobactam 3.375 GM in D5W 55 ML IVPB SCH (01:00)
[2017-10-13] MEDS: Piperacillin/Tazobactam 3.375 GM in D5W 55 ML IVPB SCH ×3 (01:21→16:43)
--- NOTE | 2017-10-13 05:30 | Progress Note ---
DATE: 10/12/2017 CARDIOLOGY PROGRESS NOTE SUBJECTIVE: The patient is more alert and interactive. Tolerating NG-tube for feedings. OBJECTIVE: VITAL SIGNS: Blood pressure 165/48, pulse 63, and respiratory rate 27. Monitored rhythm is sinus. LUNGS: Few rhonchi. CARDIAC REGULAR: Rhythm and rate. Normal S1 and S2 with a fourth heart sound. ABDOMEN: Soft and nontender. EXTREMITIES: Cold left limb and decreased erythema. LABORATORY DATA: White count 11.3 and hemoglobin 10.6. Potassium 4.4, magnesium 1.8, BUN 30, and creatinine 1.2. Albumin 1.7. IMPRESSION: 1. Ischemic left lower extremity recovering cellulitis. 2. Resolving sepsis with shock. 3. Severe protein-calorie malnutrition. 4. Acute on chronic kidney injury with prerenal azotemia. 5. Type 2 diabetes mellitus, now on insulin scale. 6. Hypertensive heart disease with slightly elevated blood pressure trend. 7. Diastolic dysfunction with no signs of acute congestive heart failure. 8. History of cerebrovascular accident. PLAN: 1. Await vascular input. 2. Continue protein supplement by NG-tube. 3. Antimicrobials and skin care. 4. Maintain adequate hydration. 5. Hold Plavix in anticipation of surgery. 6. Continue DVT and stress ulcer prophylaxes as well as insulin coverage per sliding scale. 7. Tighten blood pressure control once amputation is complete. Amari Rapp M.D. DR: KATYA JOB#: [id number] CC:
[2017-10-13 06:10] LABS: MEAN CORPUSCULAR HEMOGLOBIN 31.1 PG (27.0-31.0); MEAN CORPUSCULAR HGB CONC 32.7 G/DL (32.0-36.0); MEAN CORPUSCULAR VOLUME 95 FL (80-99); MEAN PLATELET VOLUME 6.7 FL (6.5-10.1); PLATELET COUNT 286 K/UL (150-450); RED BLOOD COUNT 3.37 M/UL (4.20-5.40); RED CELL DISTRIBUTION WIDTH 13.3 % (11.6-14.8); WHITE BLOOD COUNT 15.1 K/UL (4.8-10.8)
[2017-10-13] MEDS: NovoLOG Insulin Flexpen SUBQ SCH ×3 (06:12→17:33)
[2017-10-13 06:30] LABS: ALANINE AMINOTRANSFERASE 18 U/L (12-78); ALBUMIN/GLOBULIN RATIO 0.4 (1.0-2.7); ANION GAP 2 mmol/L (5-15); ASPARTATE AMINO TRANSFERASE 29 U/L (15-37); CALCIUM 8.7 MG/DL (8.5-10.1); CARBON DIOXIDE 33 MMOL/L (21-32); CHLORIDE 104 MMOL/L (98-107); CREATININE 1.3 MG/DL (0.55-1.30); POTASSIUM 4.9 MMOL/L (3.5-5.1); SODIUM 139 MMOL/L (136-145); TOTAL PROTEIN 5.9 G/DL (6.4-8.2)
[2017-10-13 07:37] LABS: ANISOCYTOSIS 1+; BAND NEUTROPHILS % (MANUAL) 1 % (0-8); BASOPHILS % (MANUAL) 0 % (0-2); EOSINOPHILS % (MANUAL) 1 % (0-3); HYPOCHROMASIA 1+; LYMPHOCYTES % (MANUAL) 3 % (20-45); NEUTROPHILS % (MANUAL) 88 % (45-75); PLATELET ESTIMATE ADEQUATE; PLATELET MORPHOLOGY NORMAL; TOTAL CELLS COUNTED 100
[2017-10-13] MEDS: Metoprolol Tartrate 50mg tab GT SCH ×2 (08:49→21:12)
[2017-10-13] MEDS ORDERED: Vancomycin 1 GM in D5W 275 ML IVPB SCH (09:00)
--- NOTE | 2017-10-13 09:08 | General Progress Note ---
Assessment/Plan Problem List: (1) Ischemia of foot ICD Codes: I99.8 - Other disorder of circulatory system SNOMED: 066295327, [id number] (2) Hypoglycemia ICD Codes: E16.2 - Hypoglycemia SNOMED: 350884050 (3) Diabetes mellitus ICD Codes: E11.9 - Diabetes mellitus SNOMED: 06118033 (4) CKD (chronic kidney disease) ICD Codes: N18.9 - CKD (chronic kidney disease) SNOMED: 660533819 (5) L leg cellulitis Status: stable, progressing Assessment/Plan iv abx ivf antiplt rx ppi rx left le amputation to be scheduled by vascular monitor bs insulin rx hold plavix and lovenox prior to surgery stable Subjective ROS Limited/Unobtainable: Yes Constitutional: Reports: malaise, weakness HEENT: Reports: no symptoms Cardiovascular: Reports: no symptoms Respiratory: Reports: no symptoms Gastrointestinal/Abdominal: Reports: difficulty swallowing Genitourinary: Reports: no symptoms Neurologic/Psychiatric: Reports: no symptoms Endocrine: Reports: no symptoms Hematologic/Lymphatic: Reports: anemia Allergies: Coded Allergies: OFLOXACIN (Verified Allergy, Unknown, 10/19/15) All Systems: reviewed and negative except above Subjective no events. more responsive per family. they want to proceed with amputation. on ngt feeds. no fevers. wbc trending down. off antiplt rx for surgery. per vascular should be off plavix for at least 2-3 days due to increased risk of bleeding Objective Last 24 Hour Vital Signs Date Time Temp Pulse Resp B/P (MAP) Pulse Ox O2 Delivery O2 Flow Rate FiO2 10/13/17 08:49 82 154/71 10/13/17 04:35 163/72 10/13/17 04:00 98.1 80 18 163/72 97 Nasal Cannula 1.0 10/13/17 04:00 79 10/13/17 00:00 75 10/13/17 00:00 98.2 70 18 140/63 100 Nasal Cannula 1.0 10/12/17 21:31 98.9 10/12/17 20:30 77 165/75 10/12/17 20:30 165/75 10/12/17 20:00 89 10/12/17 20:00 100.9 86 18 165/71 96 Nasal Cannula 1.0 10/12/17 19:30 Nasal Cannula 1.0 24 10/12/17 19:30 98 Nasal Cannula 1.0 24 10/12/17 19:30 68 20 Nasal Cannula 1.0 24 10/12/17 16:00 98.6 79 21 159/63 94 Room Air 10/12/17 16:00 77 10/12/17 15:11 166/48 10/12/17 15:00 65 25 166/48 99 Nasal Cannula 1.0 10/12/17 14:12 182/51 10/12/17 14:00 65 25 182/51 99 Nasal Cannula 1.0 10/12/17 13:00 62 25 170/48 99 Nasal Cannula 1.0 10/12/17 12:00 98.0 64 27 161/45 99 Nasal Cannula 1.0 10/12/17 12:00 61 10/12/17 11:00 68 25 169/55 99 Nasal Cannula 1.0 10/12/17 10:00 66 25 177/53 99 Nasal Cannula 1.0 10/12/17 09:12 181/49 Laboratory Tests 10/13/17 05:20: White Blood Count 15.1H, Red Blood Count 3.37L, Hemoglobin 10.5L, Hematocrit 32.0L, Mean Corpuscular Volume 95, Mean Corpuscular Hemoglobin 31.1H, Mean Corpuscular Hemoglobin Concent 32.7, Red Cell Distribution Width 13.3, Platelet Count 286, Mean Platelet Volume 6.7, Neutrophils (%) (Auto) , Lymphocytes (%) ( Auto) , Monocytes (%) (Auto) , Eosinophils (%) (Auto) , Basophils (%) (Auto) , Differential Total Cells Counted 100, Neutrophils % (Manual) 88H, Lymphocytes % (Manual) 3L, Monocytes % (Manual) 7, Eosinophils % (Manual) 1, Basophils % ( Manual) 0, Band Neutrophils 1, Platelet Estimate Adequate, Platelet Morphology Normal, Hypochromasia 1+, Anisocytosis 1+, Sodium Level 139, Potassium Level 4.9 , Chloride Level 104, Carbon Dioxide Level 33H, Anion Gap 2L, Blood Urea Nitrogen 36H, Creatinine 1.3, Estimat Glomerular Filtration Rate , Glucose Level 317H, Calcium Level 8.7, Total Bilirubin 0.3, Aspartate Amino Transf (AST/ SGOT) 29, Alanine Aminotransferase (ALT/SGPT) 18, Alkaline Phosphatase 68, Total Protein 5.9L, Albumin 1.7L, Globulin 4.2, Albumin/Globulin Ratio 0.4L Height (Feet): 5 Height (Inches): 2.00 Weight (Pounds): 142 Objective General Appearance: WD/WN, lethargic, confused Neck: supple Cardiovascular: normal peripheral pulses, normal rate, regular rhythm Respiratory/Chest: chest wall non-tender, lungs clear, normal breath sounds, no respiratory distress Abdomen: normal bowel sounds, non tender, soft, no organomegaly Extremities: normal range of motion. Left LE cool. +erythema. skin abrasion to toes. no pulse Edema: no edema noted Arm (L), no edema noted Arm (R), no edema noted Leg (L), no edema noted Leg (R), no edema noted Pedal (L), no edema noted Pedal (R), no edema noted Generalized Neurologic: responsive, disoriented ANSON PARRISH Oct 13, 2017 09:08
--- NOTE | 2017-10-13 12:23 | Infectious Diseases Prog Note ---
Assessment/Plan Assessment/Plan antibiotics : vancomycin iv, zosyn A 1. left leg cellulitis 2. left toe necrotic ulcers 3. leucocytosis increased 4. DM 5. HTN 6. peripheral arterial disease 7. fungal UTI P 1. continue vancomycin iv, zosyn 2. start fluconazole 3. will follow up cultures Subjective ROS Limited/Unobtainable: Yes Allergies: Coded Allergies: OFLOXACIN (Verified Allergy, Unknown, 10/19/15) Objective Vital Signs Last 24 Hour Vital Signs Date Time Temp Pulse Resp B/P (MAP) Pulse Ox O2 Delivery O2 Flow Rate FiO2 10/13/17 12:07 98.1 75 19 158/82 98 Nasal Cannula 2.0 10/13/17 08:49 82 154/71 10/13/17 08:00 69 10/13/17 08:00 98.2 75 19 152/76 98 Nasal Cannula 2.0 10/13/17 07:28 Nasal Cannula 2.0 28 10/13/17 07:28 72 22 Nasal Cannula 2.0 28 10/13/17 07:28 98 Nasal Cannula 2.0 28 10/13/17 04:35 163/72 10/13/17 04:00 98.1 80 18 163/72 97 Nasal Cannula 1.0 10/13/17 04:00 79 10/13/17 00:00 75 10/13/17 00:00 98.2 70 18 140/63 100 Nasal Cannula 1.0 10/12/17 21:31 98.9 10/12/17 20:30 77 165/75 10/12/17 20:30 165/75 10/12/17 20:00 89 10/12/17 20:00 100.9 86 18 165/71 96 Nasal Cannula 1.0 10/12/17 19:30 Nasal Cannula 1.0 24 10/12/17 19:30 98 Nasal Cannula 1.0 24 10/12/17 19:30 68 20 Nasal Cannula 1.0 24 10/12/17 16:00 98.6 79 21 159/63 94 Room Air 10/12/17 16:00 77 10/12/17 15:11 166/48 10/12/17 15:00 65 25 166/48 99 Nasal Cannula 1.0 10/12/17 14:12 182/51 10/12/17 14:00 65 25 182/51 99 Nasal Cannula 1.0 10/12/17 13:00 62 25 170/48 99 Nasal Cannula 1.0 Height (Feet): 5 Height (Inches): 2.00 Weight (Pounds): 142 Respiratory/Chest: lungs clear Cardiovascular: normal rate, regular rhythm, no gallop/murmur Abdomen: soft, non tender Extremities: no edema, other - left leg erythema, left foot in dressings Laboratory Tests Test 10/13/17 05:20 White Blood Count 15.1 K/UL (4.8-10.8) H Red Blood Count 3.37 M/UL (4.20-5.40) L Hemoglobin 10.5 G/DL (12.0-16.0) L Hematocrit 32.0 % (37.0-47.0) L Mean Corpuscular Volume 95 FL (80-99) Mean Corpuscular Hemoglobin 31.1 PG (27.0-31.0) H Mean Corpuscular Hemoglobin Concent 32.7 G/DL (32.0-36.0) Red Cell Distribution Width 13.3 % (11.6-14.8) Platelet Count 286 K/UL (150-450) Mean Platelet Volume 6.7 FL (6.5-10.1) Neutrophils (%) (Auto) % (45.0-75.0) Lymphocytes (%) (Auto) % (20.0-45.0) Monocytes (%) (Auto) % (1.0-10.0) Eosinophils (%) (Auto) % (0.0-3.0) Basophils (%) (Auto) % (0.0-2.0) Differential Total Cells Counted 100 Neutrophils % (Manual) 88 % (45-75) H Lymphocytes % (Manual) 3 % (20-45) L Monocytes % (Manual) 7 % (1-10) Eosinophils % (Manual) 1 % (0-3) Basophils % (Manual) 0 % (0-2) Band Neutrophils 1 % (0-8) Platelet Estimate Adequate Platelet Morphology Normal Hypochromasia 1+ Anisocytosis 1+ Sodium Level 139 MMOL/L (136-145) Potassium Level 4.9 MMOL/L (3.5-5.1) Chloride Level 104 MMOL/L (98-107) Carbon Dioxide Level 33 MMOL/L (21-32) H Anion Gap 2 mmol/L (5-15) L Blood Urea Nitrogen 36 mg/dL (7-18) H Creatinine 1.3 MG/DL (0.55-1.30) Estimat Glomerular Filtration Rate mL/min (>60) Glucose Level 317 MG/DL (74-106) H Calcium Level 8.7 MG/DL (8.5-10.1) Total Bilirubin 0.3 MG/DL (0.2-1.0) Aspartate Amino Transf (AST/SGOT) 29 U/L (15-37) Alanine Aminotransferase (ALT/SGPT) 18 U/L (12-78) Alkaline Phosphatase 68 U/L (46-116) Total Protein 5.9 G/DL (6.4-8.2) L Albumin 1.7 G/DL (3.4-5.0) L Globulin 4.2 g/dL Albumin/Globulin Ratio 0.4 (1.0-2.7) L HEATHER SHEPHERD Oct 13, 2017 12:23
[2017-10-13] MEDS: Fluconazole 100mg tab ORAL SCH (12:54)
[2017-10-13] MEDS ORDERED: NS 275ml ONE (14:28)
[2017-10-13] MEDS ORDERED: Tubing IV Secondary IV ONE (14:28)
[2017-10-13] MEDS ORDERED: Sterile Water For Inj 1000ml IV ONE (14:35)
[2017-10-14] VITALS (7 sets, daily range): BP systolic 150–168; BP diastolic 66–74
[2017-10-14] MEDS: NovoLOG Insulin Flexpen SUBQ SCH ×4 (00:07→17:56)
[2017-10-14] MEDS: Piperacillin/Tazobactam 3.375 GM in D5W 55 ML IVPB SCH ×3 (00:50→17:55)
--- NOTE | 2017-10-14 03:00 | Progress Note ---
DATE: 10/13/2017 CARDIOLOGY PROGRESS NOTE SUBJECTIVE: The patient's left leg is nonviable. Amputation is being scheduled. The patient has been on clopidogrel and that has been discontinued yesterday. Surgery is delayed 72 hours to decrease bleeding risk from that drug. The patient is alert and without new distress. OBJECTIVE: VITAL SIGNS: Blood pressure 154/71, pulse 82, respirations 18, and afebrile. NECK: Supple. LUNGS: Clear. CARDIAC: Regular. Normal S1 and S2 with a fourth heart sound. ABDOMEN: Soft. EXTREMITIES: Trace edema. Baseline hemiparesis. LABORATORY DATA: White count 15 and hemoglobin 10.5. Potassium 4.9, BUN 36, and creatinine 1.3. Albumin 1.7. IMPRESSION: 1. Cellulitis. 2. Sepsis. 3. Ischemic left lower extremity. 4. Peripheral artery disease. 5. Severe protein-calorie malnutrition. 6. Type 2 diabetes mellitus. 7. Diabetic neuropathy. 8. Chronic kidney disease. 9. Prerenal azotemia. 10. Leukocytosis. 11. Hypertensive heart disease. 12. History of subdural bleed. PLAN: 1. Antimicrobials. 2. Respiratory hygiene. 3. Avoid antiplatelet and anticoagulants for now. 4. Left lower extremity amputation. 5. Titrate antihypertensive and anti-failure regimen. 6. Insulin coverage by sliding scale. Amari Rapp M.D. DR: LEIGHTON JOB#: [id number] CC:
[2017-10-14 05:12] LABS: BASOPHILS % (AUTO) 0.3 % (0.0-2.0); EOSINOPHILS % (AUTO) 0.7 % (0.0-3.0); LYMPHOCYTES % (AUTO) 10.2 % (20.0-45.0); MEAN CORPUSCULAR HEMOGLOBIN 30.7 PG (27.0-31.0); MEAN CORPUSCULAR HGB CONC 32.1 G/DL (32.0-36.0); MEAN CORPUSCULAR VOLUME 96 FL (80-99); MEAN PLATELET VOLUME 7.1 FL (6.5-10.1); MONOCYTES % (AUTO) 5.5 % (1.0-10.0); NEUTROPHILS % (AUTO) 83.3 % (45.0-75.0); PLATELET COUNT 263 K/UL (150-450); RED BLOOD COUNT 3.36 M/UL (4.20-5.40); RED CELL DISTRIBUTION WIDTH 13.1 % (11.6-14.8); WHITE BLOOD COUNT 16.4 K/UL (4.8-10.8)
[2017-10-14 06:01] LABS: ALANINE AMINOTRANSFERASE 19 U/L (12-78); ALBUMIN/GLOBULIN RATIO 0.4 (1.0-2.7); ANION GAP 3 mmol/L (5-15); ASPARTATE AMINO TRANSFERASE 29 U/L (15-37); CALCIUM 9.1 MG/DL (8.5-10.1); CARBON DIOXIDE 31 MMOL/L (21-32); CHLORIDE 104 MMOL/L (98-107); CREATININE 1.4 MG/DL (0.55-1.30); POTASSIUM 5.1 MMOL/L (3.5-5.1); SODIUM 138 MMOL/L (136-145); TOTAL PROTEIN 6.4 G/DL (6.4-8.2)
[2017-10-14 06:11] LABS: MAGNESIUM 1.9 MG/DL (1.8-2.4)
[2017-10-14] MEDS: Fluconazole 100mg tab ORAL SCH (09:21)
[2017-10-14] MEDS: Metoprolol Tartrate 50mg tab GT SCH ×2 (09:22→20:35)
[2017-10-14] MEDS: Levemir Flexpen SUBQ SCH (09:26)
--- NOTE | 2017-10-14 11:06 | Infectious Diseases Prog Note ---
Assessment/Plan Assessment/Plan antibiotics : vancomycin iv, zosyn, fluconazole A 1. left leg cellulitis improving 2. left toe necrotic ulcers 3. leucocytosis increased 4. DM 5. HTN 6. peripheral arterial disease 7. fungal UTI P 1. continue vancomycin iv, zosyn 2. continue fluconazole 3. stool for c.diff 4. will follow up cultures Subjective ROS Limited/Unobtainable: Yes Allergies: Coded Allergies: OFLOXACIN (Verified Allergy, Unknown, 10/19/15) Objective Vital Signs Last 24 Hour Vital Signs Date Time Temp Pulse Resp B/P (MAP) Pulse Ox O2 Delivery O2 Flow Rate FiO2 10/14/17 09:22 92 158/70 10/14/17 08:00 98.4 92 22 158/70 97 Nasal Cannula 2.0 10/14/17 07:23 Nasal Cannula 2.0 28 10/14/17 07:23 94 20 Nasal Cannula 2.0 28 10/14/17 07:23 98 Nasal Cannula 2.0 28 10/14/17 04:00 98.2 84 18 150/70 96 Nasal Cannula 2.0 10/14/17 03:52 87 10/14/17 00:00 77 10/14/17 00:00 97.7 79 18 168/72 100 Nasal Cannula 2.0 10/13/17 21:12 77 157/67 10/13/17 20:00 98.1 76 18 156/66 96 Nasal Cannula 2.0 10/13/17 19:59 76 10/13/17 19:00 57 20 Nasal Cannula 2.0 28 10/13/17 19:00 100 Nasal Cannula 2.0 28 10/13/17 19:00 Nasal Cannula 2.0 28 10/13/17 17:30 98.4 157/67 10/13/17 16:42 171/69 10/13/17 16:00 99.7 85 20 171/69 98 Nasal Cannula 2.0 10/13/17 16:00 77 10/13/17 12:07 98.1 75 19 158/82 98 Nasal Cannula 2.0 10/13/17 12:00 75 Height (Feet): 5 Height (Inches): 2.00 Weight (Pounds): 138 Respiratory/Chest: lungs clear Cardiovascular: normal rate, regular rhythm, no gallop/murmur Abdomen: soft, non tender Extremities: no edema, other - left leg erythema decreasing, left foot in dressings Laboratory Tests Test 10/14/17 03:45 10/14/17 08:30 White Blood Count 16.4 K/UL (4.8-10.8) H Red Blood Count 3.36 M/UL (4.20-5.40) L Hemoglobin 10.3 G/DL (12.0-16.0) L Hematocrit 32.1 % (37.0-47.0) L Mean Corpuscular Volume 96 FL (80-99) Mean Corpuscular Hemoglobin 30.7 PG (27.0-31.0) Mean Corpuscular Hemoglobin Concent 32.1 G/DL (32.0-36.0) Red Cell Distribution Width 13.1 % (11.6-14.8) Platelet Count 263 K/UL (150-450) Mean Platelet Volume 7.1 FL (6.5-10.1) Neutrophils (%) (Auto) 83.3 % (45.0-75.0) H Lymphocytes (%) (Auto) 10.2 % (20.0-45.0) L Monocytes (%) (Auto) 5.5 % (1.0-10.0) Eosinophils (%) (Auto) 0.7 % (0.0-3.0) Basophils (%) (Auto) 0.3 % (0.0-2.0) Prothrombin Time 10.0 SEC (9.30-11.50) Prothromb Time International Ratio 1.0 (0.9-1.1) Activated Partial Thromboplast Time 33 SEC (23-33) Sodium Level 138 MMOL/L (136-145) Potassium Level 5.1 MMOL/L (3.5-5.1) Chloride Level 104 MMOL/L (98-107) Carbon Dioxide Level 31 MMOL/L (21-32) Anion Gap 3 mmol/L (5-15) L Blood Urea Nitrogen 41 mg/dL (7-18) H Creatinine 1.4 MG/DL (0.55-1.30) H Estimat Glomerular Filtration Rate mL/min (>60) Glucose Level 262 MG/DL (74-106) H Calcium Level 9.1 MG/DL (8.5-10.1) Magnesium Level 1.9 MG/DL (1.8-2.4) Total Bilirubin 0.3 MG/DL (0.2-1.0) Aspartate Amino Transf (AST/SGOT) 29 U/L (15-37) Alanine Aminotransferase (ALT/SGPT) 19 U/L (12-78) Alkaline Phosphatase 75 U/L (46-116) Pro-B-Type Natriuretic Peptide 2107 pg/mL (0-125) H Total Protein 6.4 G/DL (6.4-8.2) Albumin 1.8 G/DL (3.4-5.0) L Globulin 4.6 g/dL Albumin/Globulin Ratio 0.4 (1.0-2.7) L Vancomycin Level Trough 13.0 ug/mL (5.0-12.0) H HEATHER SHEPHERD Oct 14, 2017 11:06
[2017-10-14] MEDS: Vancomycin 1 GM in D5W 275 ML IVPB SCH (13:31)
[2017-10-14] MEDS: HydrALAZINE 10mg Tab GT PRN (16:18)
--- NOTE | 2017-10-14 21:15 | Electroencephalogram ---
DATE OF PROCEDURE: 10/08/2017 ELECTROENCEPHALOGRAPHY REPORT REFERRING PHYSICIAN: Osbaldo Grullon M.D. HISTORY: This 82-year-old female with a history of verbal unresponsiveness, status post left frontal craniotomy, presented with recurrent transient loss of consciousness. EEG was requested to assess possible ongoing seizure activities. TECHNIQUE: During the recording, the patient described as obtunded and stuporous, moving frequently by . From the onset of recording, the patient remained with eyes closed. Background activity consists of very low voltage, poorly defined mixture of low voltage beta activities intermittently with theta activities ranging 6 to 8 cycles per second bilaterally. Slightly higher amplitudes were noted over the left temporal area. No spike and wave activity noted. Frequently EMG artifacts noted as the patient was noted to be squirming around. There was no spike or wave transients. No paroxysmal event noted. IMPRESSION: Abnormal electroencephalogram in presence of mild diffuse slowing with a higher amplitude noted over the left frontotemporal area. COMMENT: Absence of paroxysmal event on a single recording does not rule out seizure disorder. Noticed above abnormality indicates a global cerebral dysfunction with lateralized amplitude abnormality suggestive of underlying structural lesion corresponding to previous craniotomy. Thank you. Fredi Alves M.D. DR: KAI JOB#: [id number] CC:
[2017-10-15] VITALS (7 sets, daily range): BP systolic 125–175; BP diastolic 55–78
[2017-10-15] MEDS: NovoLOG Insulin Flexpen SUBQ SCH ×5 (00:21→23:51)
[2017-10-15] MEDS: Piperacillin/Tazobactam 3.375 GM in D5W 55 ML IVPB SCH ×3 (00:31→17:12)
--- NOTE | 2017-10-15 03:01 | Progress Note ---
DATE: 10/14/2017 CARDIOLOGY PROGRESS NOTE SUBJECTIVE: The patient is off anti-platelet drugs in anticipation of surgical amputation of the left lower limb. She continues on antimicrobials for cellulitis. OBJECTIVE: VITAL SIGNS: Blood pressure 158/70, pulse 92, and respiratory rate 22. LUNGS: Clear. CARDIAC: Regular. Normal S1 and S2 with a fourth heart sound. ABDOMEN: Soft. EXTREMITIES: With mottling and ulceration of the left foot. Trace edema. LABORATORY DATA: White count 16.4 and hemoglobin 10.3. Potassium 5.1, BUN 40, and creatinine 1.4. Magnesium 1.9. Pro-natriuretic peptide is 21,000. IMPRESSION: 1. Ischemic left limb. 2. Fungal urinary tract infection. 3. Cellulitis. 4. Sepsis. 5. Severe protein-calorie malnutrition. 6. Hypertensive heart disease with labile blood pressure. 7. Toxic and metabolic encephalopathy. 8. Acute on chronic kidney disease. 9. History of subdural bleeding. 10. Acute on chronic diastolic congestive heart failure, clinically compensated. PLAN: 1. Off anti-platelets. 2. Anticipate amputation of left lower extremity. 3. Titrate antihypertensives but avoid tighter blood pressure control presently. 4. Insulin titration. 5. No current plan to diurese as clinically compensated. Amari Rapp M.D. DR: LEIGHTON JOB#: [id number] CC:
[2017-10-15] MEDS: Metoprolol Tartrate 50mg tab GT SCH ×2 (09:36→20:59)
[2017-10-15] MEDS: Fluconazole 100mg tab ORAL SCH (09:37)
[2017-10-15] MEDS: Vancomycin 1 GM in D5W 275 ML IVPB SCH (09:38)
[2017-10-15] MEDS: Levemir Flexpen SUBQ SCH (09:52)
--- NOTE | 2017-10-15 10:32 | Infectious Diseases Prog Note ---
Assessment/Plan Assessment/Plan A: 1. left leg cellulitis 2. left toe necrotic ulcers 3. leucocytosis improved 4. DM 5. HPN 6. peripheral arterial disease 7. diarrhea P 1. continue vancomycin iv, Zosyn 2. waiting for amputation Subjective ROS Limited/Unobtainable: Yes Allergies: Coded Allergies: OFLOXACIN (Verified Allergy, Unknown, 10/19/15) Objective Vital Signs Last 24 Hour Vital Signs Date Time Temp Pulse Resp B/P (MAP) Pulse Ox O2 Delivery O2 Flow Rate FiO2 10/15/17 09:36 82 125/60 10/15/17 08:00 95 10/15/17 07:11 Nasal Cannula 2.0 28 10/15/17 07:11 75 20 Nasal Cannula 2.0 28 10/15/17 07:11 99 Nasal Cannula 2.0 28 10/15/17 05:46 139/55 10/15/17 04:47 166/78 10/15/17 04:00 98.4 90 18 166/78 97 Nasal Cannula 2.0 10/15/17 03:46 95 10/15/17 00:00 88 10/15/17 00:00 97.7 89 18 175/67 96 Nasal Cannula 2.0 10/14/17 21:06 165/66 10/14/17 20:45 99 Nasal Cannula 2.0 28 10/14/17 20:45 Nasal Cannula 2.0 28 10/14/17 20:45 82 20 Nasal Cannula 2.0 28 10/14/17 20:35 89 165/70 10/14/17 20:00 95 10/14/17 20:00 98.8 95 18 165/66 100 Nasal Cannula 2.0 10/14/17 18:12 89 155/70 10/14/17 16:56 88 10/14/17 16:18 168/68 10/14/17 16:00 98.8 88 20 168/68 98 Nasal Cannula 2.0 10/14/17 12:00 98.4 82 22 156/74 97 Nasal Cannula 2.0 10/14/17 11:36 78 Height (Feet): 5 Height (Inches): 2.00 Weight (Pounds): 138 General Appearance: no acute distress HEENT: other - O2 by cannula Respiratory/Chest: lungs clear Cardiovascular: normal rate Abdomen: soft, non tender, other - NG tube feeding, rectal tube Extremities: no edema, other - left foot dressing Current Medications Medications (Trade) Dose Ordered Sig/Pradip Route PRN Reason Start Time Stop Time Status Last Admin Dose Admin Acetaminophen (Tylenol) 650 mg Q6H PRN ORAL Prn Pain/Headache/Temp > 101 10/12/17 17:00 11/07/17 16:59 10/12/17 20:32 Clonidine HCl (Catapres) 0.1 mg Q4H PRN ORAL SBP > 160 10/12/17 17:00 11/07/17 12:59 10/15/17 04:47 Dextrose (Dextrose 50%) STAT PRN IV Hypoglycemia 10/12/17 17:00 11/11/17 16:59 Fluconazole (Diflucan) 100 mg DAILY ORAL 10/13/17 12:30 10/20/17 12:29 10/15/17 09:37 Gabapentin (Neurontin) 600 mg BID ORAL 10/12/17 18:00 11/07/17 17:59 10/15/17 09:35 Hydralazine HCl (Apresoline) 10 mg Q6H PRN GT SBP above 165 10/12/17 17:00 11/10/17 16:59 10/14/17 16:18 Insulin Aspart (NovoLOG) Q6HR SUBQ 10/13/17 12:00 11/07/17 16:29 10/15/17 06:16 Insulin Detemir (Levemir) 6 units DAILY SUBQ 10/14/17 09:00 11/13/17 08:59 10/15/17 09:52 Lansoprazole (Prevacid) 30 mg DAILY GT 10/13/17 09:00 11/11/17 08:59 10/15/17 09:37 Levothyroxine Sodium (Synthroid) 50 mcg BEFORE BREAKFAST GT 10/13/17 06:30 11/08/17 06:29 10/15/17 06:14 Metoprolol Tartrate (Lopressor) 50 mg EVERY 12 HOURS GT 10/12/17 21:00 11/08/17 08:59 10/15/17 09:36 Piperacillin Sod/ Tazobactam Sod 3.375 gm/Dextrose 55 ml @ 13.75 mls/ hr Q8HR@0100,0900,1700 IVPB 10/13/17 01:00 10/20/17 00:59 10/15/17 09:53 Vancomycin HCl (Vanco rx to dose) 1 ea DAILY PRN MISC Per rx protocol 10/12/17 17:00 11/11/17 16:59 Vancomycin HCl 1 gm/Dextrose 275 ml @ 183.708 mls/hr Q24H IVPB 10/14/17 09:00 10/20/17 08:59 10/15/17 09:38 ADRIANNA BRUNO Oct 15, 2017 10:32
--- NOTE | 2017-10-15 16:52 | General Progress Note ---
Assessment/Plan Problem List: (1) Ischemia of foot ICD Codes: I99.8 - Other disorder of circulatory system SNOMED: 391330656, 194857809 (2) Hypoglycemia ICD Codes: E16.2 - Hypoglycemia SNOMED: 835573279 (3) Diabetes mellitus ICD Codes: E11.9 - Diabetes mellitus SNOMED: 50300552 (4) CKD (chronic kidney disease) ICD Codes: N18.9 - CKD (chronic kidney disease) SNOMED: 013245347 (5) L leg cellulitis Status: stable, progressing Assessment/Plan iv abx ivf antiplt rx ppi rx left le amputation to be scheduled by vascular monitor bs insulin rx hold plavix and lovenox prior to surgery stable Subjective ROS Limited/Unobtainable: Yes Constitutional: Reports: malaise, weakness HEENT: Reports: no symptoms Cardiovascular: Reports: no symptoms Respiratory: Reports: no symptoms Gastrointestinal/Abdominal: Reports: difficulty swallowing Genitourinary: Reports: no symptoms Neurologic/Psychiatric: Reports: pre-existing deficit Endocrine: Reports: no symptoms Hematologic/Lymphatic: Reports: anemia Allergies: Coded Allergies: OFLOXACIN (Verified Allergy, Unknown, 10/19/15) All Systems: reviewed and negative except above Subjective no events. awake. still more confused than baseline. tolerating ngt feeds. left LE wrapped. Objective Last 24 Hour Vital Signs Date Time Temp Pulse Resp B/P (MAP) Pulse Ox O2 Delivery O2 Flow Rate FiO2 10/15/17 16:36 98.2 81 22 150/60 98 Nasal Cannula 2.0 10/15/17 16:00 80 10/15/17 12:00 68 10/15/17 12:00 98.2 72 18 151/69 98 Nasal Cannula 2.0 10/15/17 09:36 82 125/60 10/15/17 08:00 99.7 82 20 125/60 98 Nasal Cannula 2.0 10/15/17 08:00 95 10/15/17 07:11 Nasal Cannula 2.0 28 10/15/17 07:11 75 20 Nasal Cannula 2.0 28 10/15/17 07:11 99 Nasal Cannula 2.0 28 10/15/17 05:46 139/55 10/15/17 04:47 166/78 10/15/17 04:00 98.4 90 18 166/78 97 Nasal Cannula 2.0 10/15/17 03:46 95 10/15/17 00:00 88 10/15/17 00:00 97.7 89 18 175/67 96 Nasal Cannula 2.0 10/14/17 21:06 165/66 10/14/17 20:45 99 Nasal Cannula 2.0 28 10/14/17 20:45 Nasal Cannula 2.0 28 10/14/17 20:45 82 20 Nasal Cannula 2.0 28 10/14/17 20:35 89 165/70 10/14/17 20:00 95 10/14/17 20:00 98.8 95 18 165/66 100 Nasal Cannula 2.0 10/14/17 18:12 89 155/70 10/14/17 16:56 88 Intake and Output 10/15/17 10/16/17 19:00 07:00 Intake Total 560 ml Balance 560 ml Tube Feeding 440 ml Other 120 ml Height (Feet): 5 Height (Inches): 2.00 Weight (Pounds): 138 Objective General Appearance: WD/WN, lethargic, confused Neck: supple Cardiovascular: normal peripheral pulses, normal rate, regular rhythm Respiratory/Chest: chest wall non-tender, lungs clear, normal breath sounds, no respiratory distress Abdomen: normal bowel sounds, non tender, soft, no organomegaly Extremities: normal range of motion. Left LE cool. +erythema. skin abrasion to toes. no pulse Edema: no edema noted Arm (L), no edema noted Arm (R), no edema noted Leg (L), no edema noted Leg (R), no edema noted Pedal (L), no edema noted Pedal (R), no edema noted Generalized Neurologic: responsive, disoriented ANSON PARRISH Oct 15, 2017 16:52
--- NOTE | 2017-10-15 16:54 | General Progress Note ---
Assessment/Plan Problem List: (1) Ischemia of foot ICD Codes: I99.8 - Other disorder of circulatory system SNOMED: 388375617, 089904767 (2) Hypoglycemia ICD Codes: E16.2 - Hypoglycemia SNOMED: 827015205 (3) Diabetes mellitus ICD Codes: E11.9 - Diabetes mellitus SNOMED: 58602054 (4) CKD (chronic kidney disease) ICD Codes: N18.9 - CKD (chronic kidney disease) SNOMED: 447368601 (5) L leg cellulitis Assessment/Plan iv abx ivf antiplt rx ppi rx left le amputation to be scheduled by vascular- ?frisay monitor bs insulin rx hold plavix and lovenox prior to surgery stable Subjective Date patient seen: Oct 14, 2017 ROS Limited/Unobtainable: Yes Constitutional: Reports: malaise, weakness HEENT: Reports: no symptoms Cardiovascular: Reports: no symptoms Respiratory: Reports: no symptoms Gastrointestinal/Abdominal: Reports: difficulty swallowing Genitourinary: Reports: no symptoms Neurologic/Psychiatric: Reports: pre-existing deficit Endocrine: Reports: no symptoms Hematologic/Lymphatic: Reports: anemia Allergies: Coded Allergies: OFLOXACIN (Verified Allergy, Unknown, 10/19/15) All Systems: reviewed and negative except above Subjective no events. no fever or chills. on ngt feeds. off antiplt rx in anticipation for surgery Objective Last 24 Hour Vital Signs Date Time Temp Pulse Resp B/P (MAP) Pulse Ox O2 Delivery O2 Flow Rate FiO2 10/15/17 16:36 98.2 81 22 150/60 98 Nasal Cannula 2.0 10/15/17 16:00 80 10/15/17 12:00 68 10/15/17 12:00 98.2 72 18 151/69 98 Nasal Cannula 2.0 10/15/17 09:36 82 125/60 10/15/17 08:00 99.7 82 20 125/60 98 Nasal Cannula 2.0 10/15/17 08:00 95 10/15/17 07:11 Nasal Cannula 2.0 28 10/15/17 07:11 75 20 Nasal Cannula 2.0 28 10/15/17 07:11 99 Nasal Cannula 2.0 28 10/15/17 05:46 139/55 10/15/17 04:47 166/78 10/15/17 04:00 98.4 90 18 166/78 97 Nasal Cannula 2.0 10/15/17 03:46 95 10/15/17 00:00 88 10/15/17 00:00 97.7 89 18 175/67 96 Nasal Cannula 2.0 10/14/17 21:06 165/66 10/14/17 20:45 99 Nasal Cannula 2.0 28 10/14/17 20:45 Nasal Cannula 2.0 28 10/14/17 20:45 82 20 Nasal Cannula 2.0 28 10/14/17 20:35 89 165/70 10/14/17 20:00 95 10/14/17 20:00 98.8 95 18 165/66 100 Nasal Cannula 2.0 10/14/17 18:12 89 155/70 10/14/17 16:56 88 Intake and Output 10/15/17 10/16/17 19:00 07:00 Intake Total 560 ml Balance 560 ml Tube Feeding 440 ml Other 120 ml Height (Feet): 5 Height (Inches): 2.00 Weight (Pounds): 138 Objective General Appearance: WD/WN, lethargic, confused Neck: supple Cardiovascular: normal peripheral pulses, normal rate, regular rhythm Respiratory/Chest: chest wall non-tender, lungs clear, normal breath sounds, no respiratory distress Abdomen: normal bowel sounds, non tender, soft, no organomegaly Extremities: normal range of motion. Left LE cool. +erythema. skin abrasion to toes. no pulse Edema: no edema noted Arm (L), no edema noted Arm (R), no edema noted Leg (L), no edema noted Leg (R), no edema noted Pedal (L), no edema noted Pedal (R), no edema noted Generalized Neurologic: responsive, disoriented ANSON PARRISH Oct 15, 2017 16:54
--- NOTE | 2017-10-15 19:14 | General Progress Note ---
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
--- NOTE | 2017-10-15 21:00 | Progress Note ---
DATE: 10/15/2017 CARDIOLOGY PROGRESS NOTE SUBJECTIVE: Vascular evaluation appreciated. Amputation of the left leg is planned. The patient is off Plavix. The patient is without any shortness of breath or chest pain. OBJECTIVE: VITAL SIGNS: Blood pressure 150/60, pulse 81, and respiratory rate 22. HEENT: Left limb with ecchymotic changes and distal gangrenous ulcers. Conjunctivae are pink. Oropharynx clear. NECK: Supple. LUNGS: Clear. CARDIAC: Regular rhythm and rate. Normal S1 and S2 with a fourth heart sound. EXTREMITIES: Baseline left hemiparesis. IMPRESSION: 1. Recovering sepsis with shock. 2. Acute myocardial ischemia. 3. Ischemic left lower extremity. 4. Cerebrovascular disease with baseline hemiparesis. 5. 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 PLAN: 1. Plan of care as outlined. 2. Optimize nutrition in the interim and adjust diabetic and antihypertensive regimen. 3. DVT prophylaxis at this time. Amari Rapp M.D. DR: LEIGHTON JOB#: [id number] CC:
[2017-10-16] VITALS (7 sets, daily range): BP systolic 146–163; BP diastolic 62–78
[2017-10-16] MEDS: Piperacillin/Tazobactam 3.375 GM in D5W 55 ML IVPB SCH ×3 (01:33→16:55)
[2017-10-16] MEDS: NovoLOG Insulin Flexpen SUBQ SCH ×3 (06:13→18:03)
[2017-10-16] MEDS: Fluconazole 100mg tab ORAL SCH (08:24)
[2017-10-16] MEDS: Metoprolol Tartrate 50mg tab GT SCH ×2 (08:24→20:44)
[2017-10-16] MEDS: Vancomycin 1 GM in D5W 275 ML IVPB SCH (08:24)
[2017-10-16] MEDS: Levemir Flexpen SUBQ SCH (08:26)
--- NOTE | 2017-10-16 13:26 | Infectious Diseases Prog Note ---
Assessment/Plan Assessment/Plan antibiotics : vancomycin iv, zosyn, fluconazole A 1. left leg cellulitis improving 2. left toe necrotic ulcers 3. leucocytosis increased 4. DM 5. HTN 6. peripheral arterial disease 7. fungal UTI P 1. continue vancomycin iv, zosyn 2. continue fluconazole 3 more days 3. amputation planned 4. will follow up cultures Subjective ROS Limited/Unobtainable: Yes Allergies: Coded Allergies: OFLOXACIN (Verified Allergy, Unknown, 10/19/15) Objective Vital Signs Last 24 Hour Vital Signs Date Time Temp Pulse Resp B/P (MAP) Pulse Ox O2 Delivery O2 Flow Rate FiO2 10/16/17 12:00 99.0 82 19 159/70 99 Nasal Cannula 2.0 10/16/17 11:43 81 10/16/17 08:24 89 146/71 10/16/17 08:00 92 10/16/17 08:00 98.2 89 17 146/71 98 Nasal Cannula 2.0 10/16/17 06:55 98 Nasal Cannula 2.0 28 10/16/17 06:55 Nasal Cannula 2.0 28 10/16/17 06:55 88 17 Nasal Cannula 2.0 28 10/16/17 04:00 93 10/16/17 04:00 99.0 85 24 160/78 99 Nasal Cannula 2.0 10/16/17 00:00 83 10/16/17 00:00 99.1 84 20 152/76 98 Nasal Cannula 2.0 10/15/17 20:59 89 144/61 10/15/17 20:00 83 10/15/17 20:00 99.0 89 20 144/61 98 Nasal Cannula 2.0 10/15/17 19:27 Nasal Cannula 2.0 28 10/15/17 19:27 96 Nasal Cannula 2.0 28 10/15/17 19:26 80 20 Nasal Cannula 2.0 28 10/15/17 16:36 98.2 81 22 150/60 98 Nasal Cannula 2.0 10/15/17 16:00 80 Height (Feet): 5 Height (Inches): 2.00 Weight (Pounds): 138 Respiratory/Chest: lungs clear Cardiovascular: normal rate, regular rhythm, no gallop/murmur Abdomen: soft, non tender Extremities: no edema, other - left leg in dressings HEATHER SHEPHERD Oct 16, 2017 13:26
--- NOTE | 2017-10-16 15:13 | Wound Care Consultation ---
Wound Assessment Wound Assessment #1: Wound Number: 1 Wound Present on Admission: Yes New Wound: No Status Change of Wound: No Wound Location Body Site Modif: mid Wound Location Body Site: other - Sacrococcygeal Wound Type: pressure ulcer Gaby Test: Does not Gaby Pressure Ulcer Stage: Deep Tissue Injury Wound Thickness: Full Thickness Wound Length: 2.5 Wound Width: 2.0 Wound Depth: utd Percent of Wound Purple/Maroon: 100 Wound Drainage Amount: None Wound Drainage Odor: None/Absent Tissue Surrounding Wound: Intact Wound General Appearance: Reddened - purple Wound Assessment #2: Wound Number: 2 Wound Present on Admission: Yes New Wound: No Status Change of Wound: No Wound Location Body Site Modif: right Wound Location Body Site: buttocks Wound Type: pressure ulcer Gaby Test: Does not Gaby Pressure Ulcer Stage: Deep Tissue Injury Wound Thickness: Full Thickness Wound Length: 2.0 Wound Width: 2.0 Wound Depth: utd Percent of Wound Purple/Maroon: 100 Wound Drainage Amount: None Wound Drainage Odor: None/Absent Tissue Surrounding Wound: Erythemic Wound General Appearance: Reddened - purple Wound Comment #1 Sacrococcygeal DTI pressure ulcer #2 Right Buttock DTI pressure ulcer #3 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 Sacrococcygeal DTI pressure ulcer and Right Buttock DTI pressure ulcer still intact. Will cont same wound care treatment and recommendations Below. Recommendation -Local wound care per protocol -Turn and reposition -Keep clean and dry -Optimize nutrition -Offload both heels -Heel protector on both heels -Low air loss mattress -Assess and f/u accordingly for any changes BRIDGET BAILON RN Oct 16, 2017 15:13
--- NOTE | 2017-10-16 21:49 | General Progress Note ---
Assessment/Plan Problem List: (1) Ischemia of foot ICD Codes: I99.8 - Other disorder of circulatory system SNOMED: 219691776, 324816945 (2) Hypoglycemia ICD Codes: E16.2 - Hypoglycemia SNOMED: 931785173 (3) Diabetes mellitus ICD Codes: E11.9 - Diabetes mellitus SNOMED: 46011785 (4) CKD (chronic kidney disease) ICD Codes: N18.9 - CKD (chronic kidney disease) SNOMED: 984808767 (5) L leg cellulitis Status: stable, progressing Assessment/Plan iv abx ivf antiplt rx ppi rx left le amputation to be scheduled by vascular- ?thursday. family d/w vascular surgeon poc. they are in agreement monitor bs insulin rx hold plavix and lovenox prior to surgery stable Subjective ROS Limited/Unobtainable: Yes Constitutional: Reports: malaise, weakness HEENT: Reports: no symptoms Cardiovascular: Reports: no symptoms Respiratory: Reports: no symptoms Gastrointestinal/Abdominal: Reports: difficulty swallowing Genitourinary: Reports: no symptoms Neurologic/Psychiatric: Reports: pre-existing deficit Endocrine: Reports: no symptoms Hematologic/Lymphatic: Reports: anemia Allergies: Coded Allergies: OFLOXACIN (Verified Allergy, Unknown, 10/19/15) All Systems: reviewed and negative except above Subjective no events. no fever or chills. on ngt feeds. off antiplt rx in anticipation for surgery. now scheduled for thursday. Objective Last 24 Hour Vital Signs Date Time Temp Pulse Resp B/P (MAP) Pulse Ox O2 Delivery O2 Flow Rate FiO2 10/16/17 20:44 93 163/75 10/16/17 20:00 92 10/16/17 19:28 97 Nasal Cannula 2.0 28 10/16/17 19:28 Nasal Cannula 2.0 28 10/16/17 19:27 90 18 Nasal Cannula 2.0 28 10/16/17 16:04 87 10/16/17 16:00 98.4 90 18 159/62 97 Nasal Cannula 2.0 10/16/17 12:00 99.0 82 19 159/70 99 Nasal Cannula 2.0 10/16/17 11:43 81 10/16/17 08:24 89 146/71 10/16/17 08:00 92 10/16/17 08:00 98.2 89 17 146/71 98 Nasal Cannula 2.0 10/16/17 06:55 98 Nasal Cannula 2.0 28 10/16/17 06:55 Nasal Cannula 2.0 28 10/16/17 06:55 88 17 Nasal Cannula 2.0 28 10/16/17 04:00 93 10/16/17 04:00 99.0 85 24 160/78 99 Nasal Cannula 2.0 10/16/17 00:00 83 10/16/17 00:00 99.1 84 20 152/76 98 Nasal Cannula 2.0 Intake and Output 10/16/17 10/17/17 19:00 07:00 Intake Total 1248.750 ml Output Total 300 ml Balance 948.750 ml Free Water 100 ml IV Total 443.750 ml Tube Feeding 605 ml Other 100 ml Output Urine Total 150 ml Stool Total 150 ml # Voids 2 Height (Feet): 5 Height (Inches): 2.00 Weight (Pounds): 138 Objective General Appearance: WD/WN, lethargic, confused Neck: supple Cardiovascular: normal peripheral pulses, normal rate, regular rhythm Respiratory/Chest: chest wall non-tender, lungs clear, normal breath sounds, no respiratory distress Abdomen: normal bowel sounds, non tender, soft, no organomegaly Extremities: normal range of motion. Left LE cool. +erythema. skin abrasion to toes. no pulse Edema: no edema noted Arm (L), no edema noted Arm (R), no edema noted Leg (L), no edema noted Leg (R), no edema noted Pedal (L), no edema noted Pedal (R), no edema noted Generalized Neurologic: responsive, disoriented ANSON PARRISH Oct 16, 2017 21:49
[2017-10-17] VITALS (7 sets, daily range): BP systolic 150–167; BP diastolic 60–79
[2017-10-17] MEDS: NovoLOG Insulin Flexpen SUBQ SCH ×5 (00:03→23:50)
[2017-10-17] MEDS: Piperacillin/Tazobactam 3.375 GM in D5W 55 ML IVPB SCH ×3 (01:02→16:21)
--- NOTE | 2017-10-17 04:32 | Progress Note ---
DATE: 10/16/2017 CARDIOLOGY PROGRESS NOTE SUBJECTIVE: The patient is without respiratory distress or congestion. Blood pressure parameters are high normal range. Monitored sinus rhythm. Infection improving. Ischemic changes of the left limb persist. OBJECTIVE: GENERAL: Alert, responsive, baseline mentation. NECK: Supple. LUNGS: Clear. CARDIAC: Regular. Normal S1 and S2 with a fourth heart sound. ABDOMEN: Soft and nontender. EXTREMITIES: Left lower extremity ischemic ulcers persist. NEUROLOGIC: Baseline hemiparesis. IMPRESSION: 1. Amputation of left lower extremity due to advanced peripheral artery disease and ischemic changes. 2. Multiple infections, improving. 3. Diabetes mellitus with improving control. 4. Hypertensive heart disease with loose blood pressure control appropriately at this time due to peripheral artery insufficiency. PLAN: 1. We will follow on current regimen. 2. Clopidogrel on hold pending amputation. Amari Rapp M.D. DR: Francisco JOB#: [id number] CC:
--- NOTE | 2017-10-17 06:59 | Anethesia Preoperative Eval ---
Anesthesia Pre-op PMH/ROS General Date of Evaluation: Oct 17, 2017 Time of Evaluation: 06:32 Anesthesiologist: Elbert ASA Score: ASA 4 Mallampati Score Class I : Soft palate, uvula, fauces, pillars visible Class II: Soft palate, uvula, fauces visible Class III: Soft palate, base of uvula visible Class IV: Only hard plate visible Mallampati Classification: Class III Surgeon: Yi Diagnosis: L Foot Ischemia Surgical Procedure: L Above Knee Amputation Anesthesia History: none Family History: no anesthesia problems Allergies: Coded Allergies: OFLOXACIN (Verified Allergy, Unknown, 10/19/15) Medications: see eMAR Past Medical History Cardiovascular: Reports: HTN, CAD, other - PVD, HL Pulmonary: Reports: asthma Neurologic/Psychiatric: Reports: dementia, CVA Endocrine: Reports: DM Hematology/Immune: Reports: anemia PSxH Narrative: Craniotomy 1997-Epidural Hematoma Anesthesia Pre-op Phys. Exam Physician Exam Last Vital Signs Date Time Temp Pulse Resp B/P (MAP) Pulse Ox O2 Delivery O2 Flow Rate FiO2 10/17/17 04:00 97.5 88 20 155/79 98 Nasal Cannula 2.0 10/16/17 19:28 28 Constitutional: NAD Neurologic: CN 2-12 intact Cardiovascular: RRR Respiratory: CTA Gastrointestinal: S/NT/ND Airway Exam Mallampati Score: Class III MO: limited ROM: limited Teeth: missing, intact Anesthesia Pre-op A/P Labs Labs Test 10/08/17 08:00 10/08/17 08:15 10/08/17 08:45 10/08/17 11:00 Creatine Kinase MB 10.0 NG/ML (0.0-3.6) Creatine Kinase MB Relative Index 1.7 Troponin I 0.047 ng/mL (0.000-0.056) Lipase 78 U/L (73-393) Urine Color Yellow Urine Appearance Clear Urine pH 5 (4.5-8.0) Urine Specific Reva 1.015 (1.005-1.035) Urine Protein 1+ (NEGATIVE) Urine Glucose (UA) Negative (NEGATIVE) Urine Ketones 1+ (NEGATIVE) Urine Occult Blood 3+ (NEGATIVE) Urine Nitrite Negative (NEGATIVE) Urine Bilirubin Negative (NEGATIVE) Urine Urobilinogen Normal MG/DL (0.0-1.0) Urine Leukocyte Esterase Negative (NEGATIVE) Urine RBC 2-4 /HPF (0 - 2) Urine WBC 0-2 /HPF (0 - 2) Urine Squamous Epithelial Cells Few /LPF (NONE/OCC) Urine Bacteria Few /HPF (NONE) Lactic Acid Level 0.80 mmol/L (0.66-2.22) Arterial Blood pH 7.420 (7.350-7.450) Arterial Blood Partial Pressure CO2 33.8 mmHg (35.0-45.0) Arterial Blood Partial Pressure O2 86.3 mmHg (75.0-100.0) Arterial Blood HCO3 21.4 mmol/L (22.0-26.0) Arterial Blood Oxygen Saturation 96.0 % (92.0-98.0) Arterial Blood Base Excess -2.4 Baldev Test N/a Test 10/09/17 04:35 10/10/17 06:00 10/13/17 05:20 10/14/17 03:45 Hemoglobin A1c 6.7 % (4.3-6.0) Total Creatine Kinase 358 U/L (26-308) Differential Total Cells Counted 100 Neutrophils % (Manual) 88 % (45-75) Lymphocytes % (Manual) 3 % (20-45) Monocytes % (Manual) 7 % (1-10) Eosinophils % (Manual) 1 % (0-3) Basophils % (Manual) 0 % (0-2) Band Neutrophils 1 % (0-8) Platelet Estimate Adequate Platelet Morphology Normal Hypochromasia 1+ Anisocytosis 1+ White Blood Count 16.4 K/UL (4.8-10.8) Red Blood Count 3.36 M/UL (4.20-5.40) Hemoglobin 10.3 G/DL (12.0-16.0) Hematocrit 32.1 % (37.0-47.0) Mean Corpuscular Volume 96 FL (80-99) Mean Corpuscular Hemoglobin 30.7 PG (27.0-31.0) Mean Corpuscular Hemoglobin Concent 32.1 G/DL (32.0-36.0) Red Cell Distribution Width 13.1 % (11.6-14.8) Platelet Count 263 K/UL (150-450) Mean Platelet Volume 7.1 FL (6.5-10.1) Neutrophils (%) (Auto) 83.3 % (45.0-75.0) Lymphocytes (%) (Auto) 10.2 % (20.0-45.0) Monocytes (%) (Auto) 5.5 % (1.0-10.0) Eosinophils (%) (Auto) 0.7 % (0.0-3.0) Basophils (%) (Auto) 0.3 % (0.0-2.0) Prothrombin Time 10.0 SEC (9.30-11.50) Prothromb Time International Ratio 1.0 (0.9-1.1) Activated Partial Thromboplast Time 33 SEC (23-33) Sodium Level 138 MMOL/L (136-145) Potassium Level 5.1 MMOL/L (3.5-5.1) Chloride Level 104 MMOL/L (98-107) Carbon Dioxide Level 31 MMOL/L (21-32) Anion Gap 3 mmol/L (5-15) Blood Urea Nitrogen 41 mg/dL (7-18) Creatinine 1.4 MG/DL (0.55-1.30) Estimat Glomerular Filtration Rate mL/min (>60) Glucose Level 262 MG/DL (74-106) Calcium Level 9.1 MG/DL (8.5-10.1) Magnesium Level 1.9 MG/DL (1.8-2.4) Total Bilirubin 0.3 MG/DL (0.2-1.0) Aspartate Amino Transf (AST/SGOT) 29 U/L (15-37) Alanine Aminotransferase (ALT/SGPT) 19 U/L (12-78) Alkaline Phosphatase 75 U/L (46-116) Pro-B-Type Natriuretic Peptide 2107 pg/mL (0-125) Total Protein 6.4 G/DL (6.4-8.2) Albumin 1.8 G/DL (3.4-5.0) Globulin 4.6 g/dL Albumin/Globulin Ratio 0.4 (1.0-2.7) Test 10/14/17 08:30 Vancomycin Level Trough 13.0 ug/mL (5.0-12.0) Risk Assessment & Plan Assessment: ASA 4 Plan: GA Status Change Before Surgery: No Pre-Antibiotics Drug: Simon Martínez MD Oct 17, 2017 06:59
[2017-10-17] MEDS: Vancomycin 1 GM in D5W 275 ML IVPB SCH (08:02)
--- NOTE | 2017-10-17 08:21 | General Progress Note ---
Assessment/Plan Problem List: (1) Ischemia of foot ICD Codes: I99.8 - Other disorder of circulatory system SNOMED: 111577464, 177451819 (2) Hypoglycemia ICD Codes: E16.2 - Hypoglycemia SNOMED: 202490364 (3) Diabetes mellitus ICD Codes: E11.9 - Diabetes mellitus SNOMED: 10797667 (4) CKD (chronic kidney disease) ICD Codes: N18.9 - CKD (chronic kidney disease) SNOMED: 726714946 (5) L leg cellulitis Assessment/Plan iv abx ivf antiplt rx ppi rx left le amputation to be scheduled by vascular- ?thursday. family d/w vascular surgeon poc. they are in agreement monitor bs insulin rx hold plavix and lovenox prior to surgery stable check labs in am Subjective ROS Limited/Unobtainable: Yes Constitutional: Reports: malaise, weakness HEENT: Reports: no symptoms Cardiovascular: Reports: no symptoms Respiratory: Reports: no symptoms Gastrointestinal/Abdominal: Reports: difficulty swallowing Genitourinary: Reports: no symptoms Neurologic/Psychiatric: Reports: pre-existing deficit Endocrine: Reports: no symptoms Hematologic/Lymphatic: Reports: no symptoms Allergies: Coded Allergies: OFLOXACIN (Verified Allergy, Unknown, 10/19/15) All Systems: reviewed and negative except above Subjective no events. no fever or chills. on ngt feeds. off antiplt rx in anticipation for surgery. now scheduled for thursday. d/w rn. Objective Last 24 Hour Vital Signs Date Time Temp Pulse Resp B/P (MAP) Pulse Ox O2 Delivery O2 Flow Rate FiO2 10/17/17 04:00 97.5 88 20 155/79 98 Nasal Cannula 2.0 10/17/17 04:00 90 10/17/17 00:10 92 155/70 10/17/17 00:00 85 10/17/17 00:00 97.7 86 20 160/74 97 Nasal Cannula 2.0 10/16/17 20:44 93 163/75 10/16/17 20:00 92 10/16/17 20:00 98.0 93 20 163/75 98 Nasal Cannula 2.0 10/16/17 19:28 97 Nasal Cannula 2.0 28 10/16/17 19:28 Nasal Cannula 2.0 28 10/16/17 19:27 90 18 Nasal Cannula 2.0 28 10/16/17 16:04 87 10/16/17 16:00 98.4 90 18 159/62 97 Nasal Cannula 2.0 10/16/17 12:00 99.0 82 19 159/70 99 Nasal Cannula 2.0 10/16/17 11:43 81 10/16/17 08:24 89 146/71 Height (Feet): 5 Height (Inches): 2.00 Weight (Pounds): 142 Objective General Appearance: WD/WN, lethargic, confused Neck: supple Cardiovascular: normal peripheral pulses, normal rate, regular rhythm Respiratory/Chest: chest wall non-tender, lungs clear, normal breath sounds, no respiratory distress Abdomen: normal bowel sounds, non tender, soft, no organomegaly Extremities: normal range of motion. Left LE cool. +erythema. skin abrasion to toes. no pulse Edema: no edema noted Arm (L), no edema noted Arm (R), no edema noted Leg (L), no edema noted Leg (R), no edema noted Pedal (L), no edema noted Pedal (R), no edema noted Generalized Neurologic: responsive, disoriented ANSON PARRISH Oct 17, 2017 08:21
[2017-10-17] MEDS: Fluconazole 100mg tab ORAL SCH (08:28)
[2017-10-17] MEDS: Metoprolol Tartrate 50mg tab GT SCH ×2 (08:28→21:48)
[2017-10-17] MEDS: Levemir Flexpen SUBQ SCH (08:30)
--- NOTE | 2017-10-17 10:36 | Infectious Diseases Prog Note ---
Assessment/Plan Assessment/Plan antibiotics : vancomycin iv, zosyn, fluconazole A 1. left leg cellulitis improving 2. left toe necrotic ulcers 3. leucocytosis increased 4. DM 5. HTN 6. peripheral arterial disease 7. fungal UTI P 1. continue vancomycin iv, zosyn 2. continue fluconazole 2 more days 3. amputation planned 4. will follow up cultures Subjective ROS Limited/Unobtainable: Yes Allergies: Coded Allergies: OFLOXACIN (Verified Allergy, Unknown, 10/19/15) Objective Vital Signs Last 24 Hour Vital Signs Date Time Temp Pulse Resp B/P (MAP) Pulse Ox O2 Delivery O2 Flow Rate FiO2 10/17/17 08:28 96 167/79 10/17/17 08:27 167/79 10/17/17 08:00 100 10/17/17 08:00 98.8 96 18 167/79 99 Nasal Cannula 3.0 10/17/17 06:50 94 Nasal Cannula 3.0 32 10/17/17 06:50 98 1 Nasal Cannula 3.0 32 10/17/17 06:50 Nasal Cannula 3.0 32 10/17/17 04:00 97.5 88 20 155/79 98 Nasal Cannula 2.0 10/17/17 04:00 90 10/17/17 00:10 92 155/70 10/17/17 00:00 85 10/17/17 00:00 97.7 86 20 160/74 97 Nasal Cannula 2.0 10/16/17 20:44 93 163/75 10/16/17 20:00 92 10/16/17 20:00 98.0 93 20 163/75 98 Nasal Cannula 2.0 10/16/17 19:28 97 Nasal Cannula 2.0 28 10/16/17 19:28 Nasal Cannula 2.0 28 10/16/17 19:27 90 18 Nasal Cannula 2.0 28 10/16/17 16:04 87 10/16/17 16:00 98.4 90 18 159/62 97 Nasal Cannula 2.0 10/16/17 12:00 99.0 82 19 159/70 99 Nasal Cannula 2.0 10/16/17 11:43 81 Height (Feet): 5 Height (Inches): 2.00 Weight (Pounds): 142 Respiratory/Chest: lungs clear Cardiovascular: normal rate, regular rhythm, no gallop/murmur Abdomen: soft, non tender Extremities: no edema, other - left foot in dressings HEATHER SHEPHERD Oct 17, 2017 10:36
[2017-10-17] MEDS ORDERED: Tubing IV Secondary IV ONE ×2 (10:51)
[2017-10-17] MEDS ORDERED: NS 275ml ONE (10:51)
[2017-10-17] MEDS ORDERED: Metoprolol Succinate XL 50mg tab ORAL SCH (21:00)
--- NOTE | 2017-10-17 21:30 | Progress Note ---
DATE: 10/17/2017 CARDIOLOGY PROGRESS NOTE SUBJECTIVE: The patient without new distress. Alert. No nausea or vomiting. No abdominal pain. No fevers or chills. PHYSICAL EXAMINATION: VITAL SIGNS: Blood pressure 155/79, pulse 88, and respiratory rate 20. NECK: Supple. LUNGS: Clear. CARDIAC: Regular rhythm and rate. Normal S1 and S2 with a fourth heart sound. ABDOMEN: Soft. EXTREMITIES: With dependent edema, ischemic ulcers, and decreased perfusion of left limb. IMPRESSION: 1. Left lower extremity ischemia. 2. Cellulitis. 3. Recovering sepsis. 4. Resolved shock. 5. Acute myocardial ischemia, resolved. 6. Type 2 diabetes mellitus with complications. 7. Chronic kidney disease. PLAN: 1. Continue antimicrobials. 2. Skin care. 3. Holding clopidogrel. 4. Anticipate left lower extremity amputation. 5. Beta-karolyn prophylaxis will be titrated. 6. Continue anti-platelet therapy with aspirin. 7. DVT prophylaxis up until 24 hours preoperative. Amari Rapp M.D. DR: JUDSON JOB#: [id number] CC:
[2017-10-18] VITALS: BP 162/72
[2017-10-18] MEDS: Piperacillin/Tazobactam 3.375 GM in D5W 55 ML IVPB SCH ×3 (00:57→17:15)
[2017-10-18 04:00] VITALS: BP 150/80
[2017-10-18 04:38] LABS: BASOPHILS % (AUTO) 0.5 % (0.0-2.0); EOSINOPHILS % (AUTO) 1.2 % (0.0-3.0); LYMPHOCYTES % (AUTO) 9.1 % (20.0-45.0); MEAN CORPUSCULAR HEMOGLOBIN 30.7 PG (27.0-31.0); MEAN CORPUSCULAR HGB CONC 32.6 G/DL (32.0-36.0); MEAN CORPUSCULAR VOLUME 94 FL (80-99); MEAN PLATELET VOLUME 7.3 FL (6.5-10.1); MONOCYTES % (AUTO) 5.6 % (1.0-10.0); NEUTROPHILS % (AUTO) 83.6 % (45.0-75.0); PLATELET COUNT 328 K/UL (150-450); RED BLOOD COUNT 3.18 M/UL (4.20-5.40)
[2017-10-18 04:50] LABS: ALANINE AMINOTRANSFERASE 23 U/L (12-78); ALBUMIN/GLOBULIN RATIO 0.3 (1.0-2.7); ANION GAP 4 mmol/L (5-15); ASPARTATE AMINO TRANSFERASE 22 U/L (15-37); CALCIUM 8.7 MG/DL (8.5-10.1); CARBON DIOXIDE 30 MMOL/L (21-32); CHLORIDE 105 MMOL/L (98-107); CREATININE 1.3 MG/DL (0.55-1.30); SODIUM 139 MMOL/L (136-145); TOTAL PROTEIN 6.3 G/DL (6.4-8.2)
[2017-10-18] MEDS: NovoLOG Insulin Flexpen SUBQ SCH ×3 (06:02→17:17)
[2017-10-18 08:00] VITALS: BP 155/75
--- NOTE | 2017-10-18 08:27 | General Progress Note ---
Assessment/Plan Problem List: (1) Ischemia of foot ICD Codes: I99.8 - Other disorder of circulatory system SNOMED: 756169677, 041727023 (2) Hypoglycemia ICD Codes: E16.2 - Hypoglycemia SNOMED: 710618070 (3) Diabetes mellitus ICD Codes: E11.9 - Diabetes mellitus SNOMED: 04430067 (4) CKD (chronic kidney disease) ICD Codes: N18.9 - CKD (chronic kidney disease) SNOMED: 511111636 (5) L leg cellulitis Status: stable, progressing Assessment/Plan iv abx ivf antiplt rx ppi rx left le amputation to be scheduled by vascular- tomorrow(thursday). family d/w vascular surgeon poc. they are in agreement monitor bs insulin rx hold plavix and lovenox prior to surgery stable labs reviewed Subjective ROS Limited/Unobtainable: Yes Constitutional: Reports: malaise, weakness HEENT: Reports: no symptoms Cardiovascular: Reports: no symptoms Respiratory: Reports: cough Gastrointestinal/Abdominal: Reports: difficulty swallowing Neurologic/Psychiatric: Reports: pre-existing deficit Endocrine: Reports: no symptoms Hematologic/Lymphatic: Reports: no symptoms Allergies: Coded Allergies: OFLOXACIN (Verified Allergy, Unknown, 10/19/15) All Systems: reviewed and negative except above Subjective no events. no fever or chills. on ngt feeds. off antiplt rx in anticipation for surgery. minimal congestion. still confused compared to baseline Objective Last 24 Hour Vital Signs Date Time Temp Pulse Resp B/P (MAP) Pulse Ox O2 Delivery O2 Flow Rate FiO2 10/18/17 04:00 97.7 91 15 150/80 100 Nasal Cannula 91 10/18/17 04:00 80 10/18/17 00:00 99.4 87 16 162/72 100 Nasal Cannula 3.0 87 10/18/17 00:00 82 10/17/17 22:00 91 150/60 10/17/17 21:48 91 150/60 10/17/17 21:35 Nasal Cannula 3.0 32 10/17/17 21:35 91 18 Nasal Cannula 3.0 32 10/17/17 21:35 96 Nasal Cannula 3.0 32 10/17/17 20:00 86 10/17/17 20:00 98.4 85 16 150/60 100 Nasal Cannula 3.0 85 10/17/17 16:00 97.8 84 18 158/75 95 Nasal Cannula 2.0 10/17/17 16:00 79 10/17/17 12:00 98.2 76 18 160/70 95 Nasal Cannula 2.0 10/17/17 12:00 75 10/17/17 08:28 96 167/79 10/17/17 08:27 167/79 Laboratory Tests 10/18/17 03:10: White Blood Count 13.0H, Red Blood Count 3.18L, Hemoglobin 9.8L, Hematocrit 30.0L, Mean Corpuscular Volume 94, Mean Corpuscular Hemoglobin 30.7, Mean Corpuscular Hemoglobin Concent 32.6, Red Cell Distribution Width 13.0, Platelet Count 328, Mean Platelet Volume 7.3, Neutrophils (%) (Auto) 83.6H, Lymphocytes ( %) (Auto) 9.1L, Monocytes (%) (Auto) 5.6, Eosinophils (%) (Auto) 1.2, Basophils (%) (Auto) 0.5, Sodium Level 139, Potassium Level 5.0, Chloride Level 105, Carbon Dioxide Level 30, Anion Gap 4L, Blood Urea Nitrogen 42H, Creatinine 1.3, Estimat Glomerular Filtration Rate , Glucose Level 267H, Calcium Level 8.7, Total Bilirubin 0.2, Aspartate Amino Transf (AST/SGOT) 22, Alanine Aminotransferase (ALT/SGPT) 23, Alkaline Phosphatase 122H, Total Protein 6.3L, Albumin 1.6L, Globulin 4.7, Albumin/Globulin Ratio 0.3L Height (Feet): 5 Height (Inches): 2.00 Weight (Pounds): 142 Objective General Appearance: WD/WN, lethargic, confused Neck: supple Cardiovascular: normal peripheral pulses, normal rate, regular rhythm Respiratory/Chest: chest wall non-tender, lungs clear, normal breath sounds, no respiratory distress Abdomen: normal bowel sounds, non tender, soft, no organomegaly Extremities: normal range of motion. Left LE cool. +erythema. skin abrasion to toes. no pulse Edema: no edema noted Arm (L), no edema noted Arm (R), no edema noted Leg (L), no edema noted Leg (R), no edema noted Pedal (L), no edema noted Pedal (R), no edema noted Generalized Neurologic: responsive, disoriented UOMOTO,ANSON Oct 18, 2017 08:27
[2017-10-18] MEDS ORDERED: Albuterol/Ipratropium 3ml neb HHN PRN (08:30)
--- NOTE | 2017-10-18 08:30 | Infectious Diseases Prog Note ---
Assessment/Plan Assessment/Plan A: 1. left leg cellulitis 2. left toe necrotic ulcers 3. leucocytosis improved 4. DM 5. HPN 6. peripheral arterial disease 7. diarrhea P 1. continue vancomycin iv, Zosyn & Fluconazole 2. waiting for amputation Subjective ROS Limited/Unobtainable: Yes Allergies: Coded Allergies: OFLOXACIN (Verified Allergy, Unknown, 10/19/15) Objective Vital Signs Last 24 Hour Vital Signs Date Time Temp Pulse Resp B/P (MAP) Pulse Ox O2 Delivery O2 Flow Rate FiO2 10/18/17 04:00 97.7 91 15 150/80 100 Nasal Cannula 91 10/18/17 04:00 80 10/18/17 00:00 99.4 87 16 162/72 100 Nasal Cannula 3.0 87 10/18/17 00:00 82 10/17/17 22:00 91 150/60 10/17/17 21:48 91 150/60 10/17/17 21:35 Nasal Cannula 3.0 32 10/17/17 21:35 91 18 Nasal Cannula 3.0 32 10/17/17 21:35 96 Nasal Cannula 3.0 32 10/17/17 20:00 86 10/17/17 20:00 98.4 85 16 150/60 100 Nasal Cannula 3.0 85 10/17/17 16:00 97.8 84 18 158/75 95 Nasal Cannula 2.0 10/17/17 16:00 79 10/17/17 12:00 98.2 76 18 160/70 95 Nasal Cannula 2.0 10/17/17 12:00 75 Height (Feet): 5 Height (Inches): 2.00 Weight (Pounds): 142 General Appearance: no acute distress HEENT: mucous membranes moist Respiratory/Chest: lungs clear, other - O2 by cannula Cardiovascular: normal rate Abdomen: soft, non tender, other - NG tube feeding Extremities: no edema Skin: ulcers, other - left foot Neurologic/Psychiatric: alert Laboratory Tests Test 10/18/17 03:10 White Blood Count 13.0 K/UL (4.8-10.8) H Red Blood Count 3.18 M/UL (4.20-5.40) L Hemoglobin 9.8 G/DL (12.0-16.0) L Hematocrit 30.0 % (37.0-47.0) L Mean Corpuscular Volume 94 FL (80-99) Mean Corpuscular Hemoglobin 30.7 PG (27.0-31.0) Mean Corpuscular Hemoglobin Concent 32.6 G/DL (32.0-36.0) Red Cell Distribution Width 13.0 % (11.6-14.8) Platelet Count 328 K/UL (150-450) Mean Platelet Volume 7.3 FL (6.5-10.1) Neutrophils (%) (Auto) 83.6 % (45.0-75.0) H Lymphocytes (%) (Auto) 9.1 % (20.0-45.0) L Monocytes (%) (Auto) 5.6 % (1.0-10.0) Eosinophils (%) (Auto) 1.2 % (0.0-3.0) Basophils (%) (Auto) 0.5 % (0.0-2.0) Sodium Level 139 MMOL/L (136-145) Potassium Level 5.0 MMOL/L (3.5-5.1) Chloride Level 105 MMOL/L (98-107) Carbon Dioxide Level 30 MMOL/L (21-32) Anion Gap 4 mmol/L (5-15) L Blood Urea Nitrogen 42 mg/dL (7-18) H Creatinine 1.3 MG/DL (0.55-1.30) Estimat Glomerular Filtration Rate mL/min (>60) Glucose Level 267 MG/DL (74-106) H Calcium Level 8.7 MG/DL (8.5-10.1) Total Bilirubin 0.2 MG/DL (0.2-1.0) Aspartate Amino Transf (AST/SGOT) 22 U/L (15-37) Alanine Aminotransferase (ALT/SGPT) 23 U/L (12-78) Alkaline Phosphatase 122 U/L (46-116) H Total Protein 6.3 G/DL (6.4-8.2) L Albumin 1.6 G/DL (3.4-5.0) L Globulin 4.7 g/dL Albumin/Globulin Ratio 0.3 (1.0-2.7) L Current Medications Medications (Trade) Dose Ordered Sig/Pradip Route PRN Reason Start Time Stop Time Status Last Admin Dose Admin Acetaminophen (Tylenol) 650 mg Q6H PRN ORAL Prn Pain/Headache/Temp > 101 10/12/17 17:00 11/07/17 16:59 10/12/17 20:32 Albuterol/ Ipratropium (Albuterol/ Ipratropium) 3 ml Q4H PRN HHN Shortness of Breath 10/18/17 08:30 10/23/17 08:29 UNV Dextrose (Dextrose 50%) STAT PRN IV Hypoglycemia 10/12/17 17:00 11/11/17 16:59 Fluconazole (Diflucan) 100 mg DAILY ORAL 10/13/17 12:30 10/20/17 12:29 10/17/17 08:28 Gabapentin (Neurontin) 600 mg BID ORAL 10/12/17 18:00 11/07/17 17:59 10/17/17 17:54 Hydralazine HCl (Apresoline) 10 mg Q6H PRN GT SBP above 165 10/12/17 17:00 11/10/17 16:59 10/14/17 16:18 Insulin Aspart (NovoLOG) Q6HR SUBQ 10/13/17 12:00 11/07/17 16:29 10/18/17 06:02 Insulin Detemir (Levemir) 6 units DAILY SUBQ 10/14/17 09:00 11/13/17 08:59 10/17/17 08:30 Lansoprazole (Prevacid) 30 mg DAILY GT 10/13/17 09:00 11/11/17 08:59 10/17/17 08:27 Levothyroxine Sodium (Synthroid) 50 mcg BEFORE BREAKFAST GT 10/13/17 06:30 11/08/17 06:29 10/18/17 06:03 Metoprolol Succinate (Toprol XL) 50 mg QHS ORAL 10/17/17 21:00 11/16/17 20:59 10/17/17 22:00 Piperacillin Sod/ Tazobactam Sod 3.375 gm/Dextrose 55 ml @ 13.75 mls/ hr Q8HR@0100,0900,1700 IVPB 10/13/17 01:00 10/20/17 00:59 10/18/17 00:57 Sodium Chloride 1,000 ml @ 75 mls/hr [id number] IV 10/17/17 20:00 11/16/17 19:59 11/18/17 20:16 Vancomycin HCl (Vanco rx to dose) 1 ea DAILY PRN MISC Per rx protocol 10/12/17 17:00 11/11/17 16:59 Vancomycin HCl 1 gm/Dextrose 275 ml @ 183.708 mls/hr Q24H IVPB 10/14/17 09:00 10/20/17 08:59 10/17/17 08:02 ADRIANNA BRUNO Oct 18, 2017 08:30
[2017-10-18] MEDS: Fluconazole 100mg tab ORAL SCH (09:23)
[2017-10-18] MEDS: Vancomycin 1 GM in D5W 275 ML IVPB SCH (09:24)
[2017-10-18] MEDS: Levemir Flexpen SUBQ SCH (09:30)
[2017-10-18] MEDS ORDERED: NS 500ML ONE (10:40)
[2017-10-18 12:00] VITALS: BP 157/71
[2017-10-18 16:00] VITALS: BP 169/79
--- NOTE | 2017-10-18 16:15 | Pre-Procedure Note/Attestation ---
Pre-Procedure Note/Attestation Complete Prior to Procedure Planned Procedure: left Procedure Narrative: Left leg above knee amputation Indications for Procedure Pre-Operative Diagnosis: Severe occlusive PAD left foot gangrene sepsis Attestation I attest that I discussed the nature of the procedure; its benefits; risks and complications; and alternatives (and the risks and benefits of such alternatives ), prior to the procedure, with the patient (or the patient's legal customer care representative). I attest that, if there was a reasonable possibility of needing a blood transfusion, the patient (or the patient's legal customer care representative) was given the [facility] standardized written summary, pursuant to the Ravinder Henny Blood Safety Act ([place] Health and Safety Code # 1645, as amended). I attest that I re-evaluated the patient just prior to the surgery and that there has been no change in the patient's H&P, except as documented below: MADELINE BRADFORD Oct 18, 2017 16:15
--- NOTE | 2017-10-18 16:18 | Cardiology Report ---
APPROVED REPORT EKG Measurement Heart [id number] Sinus tachycardia Left axis deviation Left ventricular hypertrophy with QRS widening [id number] Abnormal ECG
[2017-10-18] MEDS: HydrALAZINE 10mg Tab GT PRN (17:15)
[2017-10-18] MEDS: Gabapentin 300 MG/6 ML Soln GT SCH (17:15)
[2017-10-18] MEDS ORDERED: Tubing IV Secondary IV ONE (18:54)
[2017-10-18 20:00] VITALS: BP 160/75
[2017-10-18] MEDS: Metoprolol Tartrate 50mg tab NG SCH (22:06)
--- NOTE | 2017-10-18 22:45 | Progress Note ---
DATE: 10/18/2017 CARDIOLOGY PROGRESS NOTE SUBJECTIVE: The patient is scheduled for amputation tomorrow for left limb. Family members are aware. Consent is obtained. The patient has been off clopidogrel for almost a week and Lovenox has been discontinued. She remains on low-dose aspirin alone. No signs of bleeding noted. OBJECTIVE: GENERAL: Slightly confused, but alert. VITAL SIGNS: Blood pressure 150/80, pulse 98, and respiratory rate 15. Monitored sinus. NECK: Supple. LUNGS: Clear. CARDIAC: Regular. Normal S1 and S2. ABDOMEN: Soft. No guarding. EXTREMITIES: With ischemic ulcers of the left foot. Poor perfusion of the digits. Trace dependent edema. LABORATORY DATA: White count 13, hemoglobin 9.8. Sodium 139, potassium 5, bicarb 30, BUN 42, and creatinine 1.3.. IMPRESSION: 1. Ischemic left lower extremity, pending above knee amputation. 2. 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 3. Hypertensive heart disease with controlled blood pressure. 4. Acute on chronic kidney insufficiency, improved with hydration. 5. Microvascular disease. 6. Coronary atherosclerosis. 7. Asymptomatic. 8. Diastolic dysfunction with compensated congestive heart failure. PLAN: Continue beta-karolyn prophylaxis and the rest of the patient's current cardiovascular regimen. Continued hydration. Optimize glucose control. Stable for amputation from cardiovascular standpoint with minimally increased perioperative risk under general anesthesia. Amari Rapp M.D. DR: FRED JOB#: [id number] CC:
[2017-10-19] VITALS (12 sets, daily range): BP systolic 147–169; BP diastolic 50–80
[2017-10-19] MEDS: NovoLOG Insulin Flexpen SUBQ SCH ×5 (00:58→23:57)
[2017-10-19] MEDS: Piperacillin/Tazobactam 3.375 GM in D5W 55 ML IVPB SCH ×3 (01:08→17:29)
[2017-10-19 05:12] LABS: BASOPHILS % (AUTO) 0.5 % (0.0-2.0); EOSINOPHILS % (AUTO) 1.3 % (0.0-3.0); LYMPHOCYTES % (AUTO) 10.6 % (20.0-45.0); MEAN CORPUSCULAR HEMOGLOBIN 30.6 PG (27.0-31.0); MEAN CORPUSCULAR HGB CONC 32.3 G/DL (32.0-36.0); MEAN CORPUSCULAR VOLUME 95 FL (80-99); MONOCYTES % (AUTO) 6.4 % (1.0-10.0); NEUTROPHILS % (AUTO) 81.2 % (45.0-75.0); PLATELET COUNT 331 K/UL (150-450); RED BLOOD COUNT 3.15 M/UL (4.20-5.40); RED CELL DISTRIBUTION WIDTH 12.7 % (11.6-14.8); WHITE BLOOD COUNT 11.5 K/UL (4.8-10.8)
[2017-10-19 05:25] LABS: INR 0.9 (0.9-1.1); PROTHROMBIN TIME 9.8 SEC (9.30-11.50)
[2017-10-19 05:38] LABS: ANION GAP 5 mmol/L (5-15); CALCIUM 8.3 MG/DL (8.5-10.1); CARBON DIOXIDE 28 MMOL/L (21-32); CHLORIDE 107 MMOL/L (98-107); CREATININE 1.2 MG/DL (0.55-1.30); POTASSIUM 5.2 MMOL/L (3.5-5.1); SODIUM 140 MMOL/L (136-145)
[2017-10-19] MEDS ORDERED: Thrombin 5000 units TOPIC ONE (07:05)
[2017-10-19] MEDS ORDERED: NeoSporin Gu Irrig 1ml Amp IRRIG ONE (07:05)
[2017-10-19] MEDS ORDERED: Bacitracin 50000 Units Vial ONE (07:05)
[2017-10-19] MEDS ORDERED: Bacitracin Oint 15gm Tube TOPIC ONE (07:05)
[2017-10-19] MEDS ORDERED: ePHEDrine 50mg/ml Inj ONE (07:30)
[2017-10-19] MEDS ORDERED: Propofol 200mg/20ml IV ONE (07:30)
[2017-10-19] MEDS ORDERED: fentaNYL 100 mcg/2 mL IV ONE (07:30)
[2017-10-19] MEDS ORDERED: Sodium Polystyrene Sulfonate Enema RECTAL ONE (07:30)
[2017-10-19] MEDS ORDERED: Metoprolol 5mg/5ml Inj ONE (07:30)
[2017-10-19] MEDS ORDERED: Midazolam 2mg/2ml Inj ONE (07:30)
[2017-10-19] MEDS ORDERED: Sterile Water Irrig 1000ml IRRIG ONE (07:30)
[2017-10-19] MEDS ORDERED: NS Irrig 1000ml ONE (07:30)
[2017-10-19] MEDS ORDERED: Hydromorphone 0.5mg/0.5ml inj IVP PRN (08:45)
[2017-10-19] MEDS ORDERED: LORazepam Inj 2mg/ml 1ml IV PRN (08:45)
[2017-10-19] MEDS ORDERED: Metoprolol 5mg/5ml Inj IVP SCH (08:45)
--- NOTE | 2017-10-19 08:47 | Immediate Post-Op Evaluation ---
Immediate Post-Op Evalulation Immediate Post-Op Evalulation Procedure: Left above knee amputation Date of Evaluation: Oct 19, 2017 Time of Evaluation: 10:00 IV Fluids: 850 Blood Products: 250 Estimated Blood Loss: 200 Urinary Output: 700 Blood Pressure Systolic: 146 Blood Pressure Diastolic: 70 Pulse Rate: 84 Respiratory Rate: 19 O2 Sat by Pulse Oximetry: 99 Temperature (Fahrenheit): 98.6 Pain Score (1-10): 0 Nausea: No Vomiting: No Complications No complication Patient Status: reacts, patent, none Hydration Status: adequate Drug: Ancef Given Within 1 Hr of Incision: Yes Time Given: 07:50 KAYE YAP M.D. Oct 19, 2017 08:47
[2017-10-19] MEDS: Gabapentin 300 MG/6 ML Soln GT SCH ×2 (09:00→17:29)
[2017-10-19] MEDS: Levemir Flexpen SUBQ SCH (09:00)
--- NOTE | 2017-10-19 09:47 | Operative Note - PDOC ---
Operative Note Operative Note Pre-op Diagnosis: Severe occlusive PAD left foot gangrene sepsis Procedure: Left leg above knee amputation Post-op Diagnosis: same as pre-op Surgeon: Madeline Bradford Anesthesiologist: Ravinder Jennings Anesthesia: general Specimen: yes - left leg Complications: none Condition: stable Fluids: 800 Estimated Blood Loss: minimal - 200cc Drains: none Implant(s) used?: No Indications for Procedure Left foot gangrene occluded left SFA pop severe PAD MADELINE BRADFORD Oct 19, 2017 09:47
--- NOTE | 2017-10-19 09:51 | General Progress Note ---
Progress Note Progress Note Left leg above knee amputation done without difficulty Patient tolerated procedure and anesthesia very well Rec Abx per ID---(check urine culture/ urine v cloudy when robins placed) Optimize nutrition-- swallow eval Ok to resume antiplatelet and statin Decub and DVT precautions Ok for d/c to SNF/rehab once medically cleared Will remove left stump dressing POD 5 / sutures removal 4wks and prosthesis eval in 3 months d/w pts' family MADELINE BRADFORD Oct 19, 2017 09:51
[2017-10-19 10:19] LABS: APPEARANCE,URINE TURBID; KETONES,URINE NEGATIVE (NEGATIVE); LEUKOCYTE ESTERASE ,URINE 3+ (NEGATIVE); NITRITE,URINE NEGATIVE (NEGATIVE); PH,URINE 7 (4.5-8.0); PROTEIN,URINE 3+ (NEGATIVE); UROBILINOGEN,URINE NORMAL MG/DL (0.0-1.0)
[2017-10-19 10:25] LABS: BACTERIA,URINE FEW /HPF; SQUAMOUS EPITHELIAL CELL,UR FEW /LPF (NONE/OCC); WBC,URINE TNTC /HPF (0 - 2); YEAST,URINE FEW /HPF
[2017-10-19] MEDS ORDERED: D5 1/2NS 1,000 ML IV SCH (10:30)
--- NOTE | 2017-10-19 10:46 | Cardiology Report ---
APPROVED REPORT EXAM: Two-dimensional and M-mode echocardiogram with Doppler and color Doppler. INDICATION Bundle branch block M-Mode DIMENSIONS IVSd1.6 (0.7-1.1cm)Left Atrium (MM)4.0 (1.6-4.0cm) LVDd4.0 (3.5-5.6cm)Aortic Root3.3 (2.0-3.7cm) PWd1.3 (0.7-1.1cm)Aortic Cusp Exc.1.6 (1.5-2.0cm) LVDs1.8 (2.5-4.0cm) PWs2.0 cm Normal left ventricular chamber size, systolic function and wall motion. Left ventricular ejection fraction estimated to be 55 %. Mild left ventricular hypertrophy. Anterior Echo-free space, may be due to pericardial fat or effusion. All other cardiac chamber sizes are within normal limits. Mild focal aortic valve sclerosis with adequate cusp excursion. Mildly thickened mitral valve leaflets with normal excursion. Mild mitral annulus and aortic root calcification. Pulmonic valve not well visualized. Normal tricuspid valve structure. IVC at normal size with physiologic collapse. A color flow and spectral Doppler study was performed and revealed: Mild to moderate aortic regurgitation. Mild mitral regurgitation. Mitral diastolic velocities suggest reduced left ventricular relaxation c/w mild LV diastolic dysfunction (Grade I ). No tricuspid regurgitation. Tricuspid systolic velocities suggests peak right ventricular systolic pressure of 22 mmHg. No pulmonic regurgitation present.
[2017-10-19 10:50] LABS: BASOPHILS % (AUTO) 0.6 % (0.0-2.0); EOSINOPHILS % (AUTO) 1.1 % (0.0-3.0); LYMPHOCYTES % (AUTO) 13.6 % (20.0-45.0); MEAN CORPUSCULAR HEMOGLOBIN 29.8 PG (27.0-31.0); MEAN CORPUSCULAR HGB CONC 31.3 G/DL (32.0-36.0); MEAN CORPUSCULAR VOLUME 95 FL (80-99); MEAN PLATELET VOLUME 6.8 FL (6.5-10.1); MONOCYTES % (AUTO) 6.6 % (1.0-10.0); NEUTROPHILS % (AUTO) 78.1 % (45.0-75.0); PLATELET COUNT 333 K/UL (150-450); RED BLOOD COUNT 3.72 M/UL (4.20-5.40); RED CELL DISTRIBUTION WIDTH 12.6 % (11.6-14.8); WHITE BLOOD COUNT 10.5 K/UL (4.8-10.8)
[2017-10-19 11:05] LABS: CALCIUM 7.9 MG/DL (8.5-10.1); CARBON DIOXIDE 27 MMOL/L (21-32); CREATININE 1.2 MG/DL (0.55-1.30)
[2017-10-19 11:50] LABS: CHLORIDE 108 MMOL/L (98-107); POTASSIUM 5.1 MMOL/L (3.5-5.1); SODIUM 142 MMOL/L (136-145)
--- NOTE | 2017-10-19 12:24 | General Progress Note ---
Assessment/Plan Problem List: (1) Ischemia of foot ICD Codes: I99.8 - Other disorder of circulatory system SNOMED: 828145083, 172396043 (2) Hypoglycemia ICD Codes: E16.2 - Hypoglycemia SNOMED: 469481079 (3) Diabetes mellitus ICD Codes: E11.9 - Diabetes mellitus SNOMED: 71696787 (4) CKD (chronic kidney disease) ICD Codes: N18.9 - CKD (chronic kidney disease) SNOMED: 283447208 (5) L leg cellulitis Status: stable, progressing Assessment/Plan iv abx ivf antiplt rx ppi rx left le amputation to be scheduled by vascular- today. family d/w vascular surgeon poc. they are in agreement monitor bs insulin rx hold plavix and lovenox prior to surgery stable labs reviewed repeat swallow eval Subjective Time patient seen: 07:30 ROS Limited/Unobtainable: Yes Constitutional: Reports: malaise, weakness HEENT: Reports: no symptoms Cardiovascular: Reports: no symptoms Respiratory: Reports: no symptoms Gastrointestinal/Abdominal: Reports: difficulty swallowing Genitourinary: Reports: no symptoms Neurologic/Psychiatric: Reports: pre-existing deficit Endocrine: Reports: no symptoms Hematologic/Lymphatic: Reports: anemia Allergies: Coded Allergies: OFLOXACIN (Verified Allergy, Unknown, 10/19/15) All Systems: reviewed and negative except above Subjective no events. no fever or chills. on ngt feeds. off antiplt rx in anticipation for surgery. minimal congestion. still confused compared to baseline Objective Last 24 Hour Vital Signs Date Time Temp Pulse Resp B/P (MAP) Pulse Ox O2 Delivery O2 Flow Rate FiO2 10/19/17 11:32 97.5 94 20 159/68 98 Nasal Cannula 3.0 10/19/17 10:45 97.1 90 20 160/70 99 Nasal Cannula 3.0 10/19/17 10:30 97.1 86 20 166/73 99 Simple Mask 8.0 10/19/17 10:12 91 20 169/78 99 Simple Mask 8.0 10/19/17 10:00 85 20 161/73 99 Simple Mask 8.0 10/19/17 09:55 81 20 148/67 99 Simple Mask 8.0 10/19/17 09:52 84 19 99 10/19/17 09:50 98.6 84 20 147/66 99 Simple Mask 8.0 10/19/17 07:45 97.5 84 20 167/74 99 Nasal Cannula 2.0 10/19/17 07:36 87 10/19/17 04:00 97.9 99 18 165/80 100 Nasal Cannula 2.0 10/19/17 04:00 81 10/19/17 01:52 99.0 10/19/17 00:00 85 10/19/17 00:00 99.6 99 18 148/50 100 Nasal Cannula 2.0 10/18/17 22:06 99 160/75 10/18/17 20:00 99.0 99 18 160/75 100 Nasal Cannula 2.0 10/18/17 20:00 101 10/18/17 19:30 98 Nasal Cannula 2.0 28 10/18/17 19:30 90 20 Nasal Cannula 2.0 28 10/18/17 19:30 Nasal Cannula 2.0 28 10/18/17 17:15 169/79 10/18/17 16:00 97.6 92 21 169/79 98 Nasal Cannula 2.0 10/18/17 16:00 102 10/18/17 14:28 Nasal Cannula 2.0 28 10/18/17 14:28 97 Nasal Cannula 2.0 28 Intake and Output 10/19/17 10/20/17 19:00 07:00 Intake Total 1150 ml Output Total 900 ml Balance 250 ml IV Total 900 ml Blood Product 250 ml Output Urine Total 700 ml Estimated Blood Loss 200 ml Laboratory Tests 10/19/17 03:25: White Blood Count 11.5H, Red Blood Count 3.15L, Hemoglobin 9.6L, Hematocrit 29.9L, Mean Corpuscular Volume 95, Mean Corpuscular Hemoglobin 30.6, Mean Corpuscular Hemoglobin Concent 32.3, Red Cell Distribution Width 12.7, Platelet Count 331, Mean Platelet Volume 7.0, Neutrophils (%) (Auto) 81.2H, Lymphocytes ( %) (Auto) 10.6L, Monocytes (%) (Auto) 6.4, Eosinophils (%) (Auto) 1.3, Basophils (%) (Auto) 0.5, Prothrombin Time 9.8, Prothromb Time International Ratio 0.9, Activated Partial Thromboplast Time 32, Sodium Level 140, Potassium Level 5.2H, Chloride Level 107, Carbon Dioxide Level 28, Anion Gap 5, Blood Urea Nitrogen 37H, Creatinine 1.2, Estimat Glomerular Filtration Rate , Glucose Level 237H, Calcium Level 8.3L 10/19/17 10:00: Urine Color Pale yellow, Urine Appearance Turbid, Urine pH 7, Urine Specific [place] 1.010, Urine Protein 3+H, Urine Glucose (UA) Negative, Urine Ketones Negative, Urine Occult Blood 4+H, Urine Nitrite Negative, Urine Bilirubin Negative, Urine Urobilinogen Normal, Urine Leukocyte Esterase 3+H, Urine RBC 5- 10H, Urine WBC TntcH, Urine Squamous Epithelial Cells Few, Urine Bacteria Few, Urine Yeast FewH 10/19/17 10:30: White Blood Count 10.5, Red Blood Count 3.72L, Hemoglobin 11.1L, Hematocrit 35.5L, Mean Corpuscular Volume 95, Mean Corpuscular Hemoglobin 29.8, Mean Corpuscular Hemoglobin Concent 31.3L, Red Cell Distribution Width 12.6, Platelet Count 333, Mean Platelet Volume 6.8, Neutrophils (%) (Auto) 78.1H, Lymphocytes (%) (Auto) 13.6L, Monocytes (%) (Auto) 6.6, Eosinophils (%) (Auto) 1.1, Basophils (%) (Auto) 0.6, Sodium Level 142, Potassium Level 5.1, Chloride Level 108H, Carbon Dioxide Level 27, Blood Urea Nitrogen 35H, Creatinine 1.2, Estimat Glomerular Filtration Rate , Glucose Level 281H, Calcium Level 7.9L, Troponin I 0.023 Height (Feet): 5 Height (Inches): 2.00 Weight (Pounds): 138 Objective General Appearance: WD/WN, lethargic, confused Neck: supple Cardiovascular: normal peripheral pulses, normal rate, regular rhythm Respiratory/Chest: chest wall non-tender, lungs clear, normal breath sounds, no respiratory distress Abdomen: normal bowel sounds, non tender, soft, no organomegaly Extremities: normal range of motion. Left LE cool. +erythema. skin abrasion to toes. no pulse Edema: no edema noted Arm (L), no edema noted Arm (R), no edema noted Leg (L), no edema noted Leg (R), no edema noted Pedal (L), no edema noted Pedal (R), no edema noted Generalized Neurologic: responsive, disoriented UOMOTO,ANSON Oct 19, 2017 12:24
[2017-10-19] MEDS: Fluconazole 100mg tab GT SCH (12:33)
[2017-10-19] MEDS: Vancomycin 1 GM in D5W 275 ML IVPB SCH (12:33)
[2017-10-19] MEDS: Metoprolol Tartrate 50mg tab NG SCH ×2 (12:33→21:53)
[2017-10-19] MEDS: Nystatin Powder 100,000 units/gm 15gm TOPIC SCH ×2 (13:00→17:33)
--- NOTE | 2017-10-19 14:53 | 48 Hour Post Anesthesia Eval ---
Post Anesthesia Evaluation Procedure: Left above knee amputation Date of Evaluation: Oct 19, 2017 Time of Evaluation: 18:55 Blood Pressure Systolic: 159 0: 68 Pulse Rate: 94 Respiratory Rate: 20 Temperature (Fahrenheit): 97.5 O2 Sat by Pulse Oximetry: 98 Airway: patent Nausea: No Vomiting: No Pain Intensity: 2 Hydration Status: adequate Cardiopulmonary Status: Stable Mental Status/LOC: patient returned to baseline Follow-up Care/Observations: As per surgery Post-Anesthesia Complications: No anesthetic complication Follow-up care needed: N/A KAYE YAP M.D. Oct 19, 2017 14:53
[2017-10-19] MEDS: HydrALAZINE 10mg Tab GT PRN (15:32)
--- NOTE | 2017-10-19 22:15 | Progress Note ---
DATE: 10/19/2017 CARDIOLOGY PROGRESS NOTE SUBJECTIVE: The patient underwent left [id number] amputation. Intraoperative records were reviewed. No complications were noted immediately. OBJECTIVE: VITAL SIGNS: Blood pressure is 160/70, pulse rate 90, respiratory rate 20, and afebrile. NECK: Supple. LUNGS: Clear. CARDIAC: Regular rhythm and rate. Normal S1 and S2 with a fourth heart sound. ABDOMEN: Soft, quiet. EXTREMITIES: Left stump has dressing in place and drain. LABORATORY DATA: White count is 10 and hemoglobin 11. Potassium is 5.1, BUN 35, creatinine 1.2, and glucose 281. Troponins were negative. IMPRESSION: 1. Status post left [id number] amputation. 2. Status post sepsis with shock and cellulitis. 3. Type 2 diabetes mellitus. 4. Hypertensive heart disease. 5. Chronic diastolic congestive heart failure. PLAN: 1. Resume antiplatelet therapy. 2. Continue statin. 3. DVT prophylaxis. 4. Antimicrobials per Infectious Disease design and sales consultant. 5. Titrate antihypertensives. 6. Observing closely for secondary orthostasis. 7. Optimize blood glucose control. Amari aRpp M.D. DR: Francisco JOB#: [id number] CC:
[2017-10-20] VITALS: BP 150/67
[2017-10-20] MEDS ORDERED: Zosyn 3.375gm inj ONE (00:37)
[2017-10-20] MEDS: Piperacillin/Tazobactam 3.375 GM in D5W 55 ML IVPB SCH ×3 (00:49→17:20)
[2017-10-20 04:00] VITALS: BP 159/82
[2017-10-20 04:27] LABS: BASOPHILS % (AUTO) 0.6 % (0.0-2.0); EOSINOPHILS % (AUTO) 0.9 % (0.0-3.0); LYMPHOCYTES % (AUTO) 10.1 % (20.0-45.0); MEAN CORPUSCULAR HEMOGLOBIN 30.8 PG (27.0-31.0); MEAN CORPUSCULAR HGB CONC 32.5 G/DL (32.0-36.0); MEAN CORPUSCULAR VOLUME 95 FL (80-99); MEAN PLATELET VOLUME 6.8 FL (6.5-10.1); MONOCYTES % (AUTO) 8.3 % (1.0-10.0); NEUTROPHILS % (AUTO) 80.2 % (45.0-75.0); PLATELET COUNT 339 K/UL (150-450); RED BLOOD COUNT 3.06 M/UL (4.20-5.40); RED CELL DISTRIBUTION WIDTH 12.7 % (11.6-14.8); WHITE BLOOD COUNT 9.4 K/UL (4.8-10.8)
[2017-10-20 04:40] LABS: ANION GAP 5 mmol/L (5-15); CALCIUM 7.8 MG/DL (8.5-10.1); CARBON DIOXIDE 27 MMOL/L (21-32); CHLORIDE 108 MMOL/L (98-107); CREATININE 1.1 MG/DL (0.55-1.30); POTASSIUM 5.2 MMOL/L (3.5-5.1); SODIUM 140 MMOL/L (136-145)
[2017-10-20] MEDS: Heparin 5000 units/ml inj SUBQ SCH ×3 (05:59→22:51)
[2017-10-20] MEDS: NovoLOG Insulin Flexpen SUBQ SCH ×3 (06:00→22:50)
[2017-10-20 08:00] VITALS: BP 145/66
--- NOTE | 2017-10-20 09:19 | Vascular Surgery Progress Note ---
Subjective Subjective No new complaints Awake responds slowly Objective Objective Last 24 Hour Vital Signs Date Time Temp Pulse Resp B/P (MAP) Pulse Ox O2 Delivery O2 Flow Rate FiO2 10/20/17 05:00 79 10/20/17 04:00 98.5 92 20 159/82 98 Nasal Cannula 3.0 10/20/17 00:00 86 10/20/17 00:00 99.1 83 20 150/67 99 Nasal Cannula 3.0 10/19/17 21:53 90 138/59 10/19/17 20:00 89 10/19/17 20:00 97.5 89 20 148/66 98 Nasal Cannula 3.0 10/19/17 19:00 86 18 Nasal Cannula 2.0 28 10/19/17 19:00 Nasal Cannula 2.0 28 10/19/17 19:00 99 Nasal Cannula 2.0 28 10/19/17 17:17 147/71 10/19/17 16:05 86 10/19/17 16:00 97.7 86 19 99 Nasal Cannula 2.0 10/19/17 15:32 167/75 10/19/17 14:53 94 20 98 10/19/17 12:33 94 159/68 10/19/17 11:40 92 10/19/17 11:32 97.5 94 20 159/68 98 Nasal Cannula 3.0 10/19/17 10:45 97.1 90 20 160/70 99 Nasal Cannula 3.0 10/19/17 10:30 97.1 86 20 166/73 99 Simple Mask 8.0 10/19/17 10:12 91 20 169/78 99 Simple Mask 8.0 10/19/17 10:00 85 20 161/73 99 Simple Mask 8.0 10/19/17 09:55 81 20 148/67 99 Simple Mask 8.0 10/19/17 09:52 84 19 99 10/19/17 09:50 98.6 84 20 147/66 99 Simple Mask 8.0 Laboratory Tests Test 10/19/17 10:00 10/19/17 10:30 10/19/17 18:25 10/19/17 23:00 Urine Color Pale yellow Urine Appearance Turbid Urine pH 7 (4.5-8.0) Urine Specific [place] 1.010 (1.005-1.035) Urine Protein 3+ (NEGATIVE) H Urine Glucose (UA) Negative (NEGATIVE) Urine Ketones Negative (NEGATIVE) Urine Occult Blood 4+ (NEGATIVE) H Urine Nitrite Negative (NEGATIVE) Urine Bilirubin Negative (NEGATIVE) Urine Urobilinogen Normal MG/DL (0.0-1.0) Urine Leukocyte Esterase 3+ (NEGATIVE) H Urine RBC 5-10 /HPF (0 - 2) H Urine WBC Tntc /HPF (0 - 2) H Urine Squamous Epithelial Cells Few /LPF (NONE/OCC) Urine Bacteria Few /HPF (NONE) Urine Yeast Few /HPF (NONE) H White Blood Count 10.5 K/UL (4.8-10.8) Red Blood Count 3.72 M/UL (4.20-5.40) L Hemoglobin 11.1 G/DL (12.0-16.0) L Hematocrit 35.5 % (37.0-47.0) L Mean Corpuscular Volume 95 FL (80-99) Mean Corpuscular Hemoglobin 29.8 PG (27.0-31.0) Mean Corpuscular Hemoglobin Concent 31.3 G/DL (32.0-36.0) L Red Cell Distribution Width 12.6 % (11.6-14.8) Platelet Count 333 K/UL (150-450) Mean Platelet Volume 6.8 FL (6.5-10.1) Neutrophils (%) (Auto) 78.1 % (45.0-75.0) H Lymphocytes (%) (Auto) 13.6 % (20.0-45.0) L Monocytes (%) (Auto) 6.6 % (1.0-10.0) Eosinophils (%) (Auto) 1.1 % (0.0-3.0) Basophils (%) (Auto) 0.6 % (0.0-2.0) Sodium Level 142 MMOL/L (136-145) Potassium Level 5.1 MMOL/L (3.5-5.1) Chloride Level 108 MMOL/L (98-107) H Carbon Dioxide Level 27 MMOL/L (21-32) Blood Urea Nitrogen 35 mg/dL (7-18) H Creatinine 1.2 MG/DL (0.55-1.30) Estimat Glomerular Filtration Rate mL/min (>60) Glucose Level 281 MG/DL (74-106) H Calcium Level 7.9 MG/DL (8.5-10.1) L Troponin I 0.023 ng/mL (0.000-0.056) 0.023 ng/mL (0.000-0.056) 0.027 ng/mL (0.000-0.056) Test 10/20/17 03:05 White Blood Count 9.4 K/UL (4.8-10.8) Red Blood Count 3.06 M/UL (4.20-5.40) L Hemoglobin 9.4 G/DL (12.0-16.0) L Hematocrit 29.0 % (37.0-47.0) L Mean Corpuscular Volume 95 FL (80-99) Mean Corpuscular Hemoglobin 30.8 PG (27.0-31.0) Mean Corpuscular Hemoglobin Concent 32.5 G/DL (32.0-36.0) Red Cell Distribution Width 12.7 % (11.6-14.8) Platelet Count 339 K/UL (150-450) Mean Platelet Volume 6.8 FL (6.5-10.1) Neutrophils (%) (Auto) 80.2 % (45.0-75.0) H Lymphocytes (%) (Auto) 10.1 % (20.0-45.0) L Monocytes (%) (Auto) 8.3 % (1.0-10.0) Eosinophils (%) (Auto) 0.9 % (0.0-3.0) Basophils (%) (Auto) 0.6 % (0.0-2.0) Sodium Level 140 MMOL/L (136-145) Potassium Level 5.2 MMOL/L (3.5-5.1) H Chloride Level 108 MMOL/L (98-107) H Carbon Dioxide Level 27 MMOL/L (21-32) Anion Gap 5 mmol/L (5-15) Blood Urea Nitrogen 29 mg/dL (7-18) H Creatinine 1.1 MG/DL (0.55-1.30) Estimat Glomerular Filtration Rate mL/min (>60) Glucose Level 271 MG/DL (74-106) H Calcium Level 7.8 MG/DL (8.5-10.1) L Height (Feet): 5 Height (Inches): 2.00 Weight (Pounds): 134 Objective cvs rrr lungs cta abd soft nontender Slow mentation--left arm side weak Left aka stump c/d/i Right foot warm no ulcer intact dopplers Assessment/Plan Assessment Stable s/p left AKA Non-salvageable left foot leg necrosis/gangrene with complete occlusion of left SFA pop tibials Admitted with shock sepsis Encephalopathy HTN CHF DM Calcific PAD Plan Swallow eval and ? need for PEG feeding Decub and DVT precautions Antiplatelet and statin therapy Wean off abx per ID Will change stump dressing pod day 5 and suture removal in 4 wks/ prosthesis eval in 3 months Ok for d/c planning SNF rehab d/w patient and RN at length MADELINE BRADFORD Oct 20, 2017 09:19
[2017-10-20] MEDS: Fluconazole 100mg tab GT SCH (09:31)
[2017-10-20] MEDS: Metoprolol Tartrate 50mg tab NG SCH ×2 (09:31→21:00)
[2017-10-20] MEDS: Nystatin Powder 100,000 units/gm 15gm TOPIC SCH ×3 (09:33→19:32)
[2017-10-20] MEDS: Gabapentin 300 MG/6 ML Soln GT SCH ×3 (09:33→19:32)
[2017-10-20] MEDS: Vancomycin 1 GM in D5W 275 ML IVPB SCH (09:35)
[2017-10-20] MEDS: Levemir Flexpen SUBQ SCH (09:36)
--- NOTE | 2017-10-20 10:52 | Infectious Diseases Prog Note ---
Assessment/Plan Assessment/Plan antibiotics : vancomycin iv, zosyn, fluconazole A 1. left leg cellulitis s/p AKA 2. left toe necrotic ulcers s/p AKA 3. leucocytosis resolved 4. DM 5. HTN 6. peripheral arterial disease 7. fungal UTI s/p rx P 1. continue vancomycin iv, zosyn until tomorrow 2. d/c fluconazole 3. will follow up cultures Subjective ROS Limited/Unobtainable: Yes Allergies: Coded Allergies: OFLOXACIN (Verified Allergy, Unknown, 10/19/15) Objective Vital Signs Last 24 Hour Vital Signs Date Time Temp Pulse Resp B/P (MAP) Pulse Ox O2 Delivery O2 Flow Rate FiO2 10/20/17 09:31 99 145/66 10/20/17 08:00 90 10/20/17 05:00 79 10/20/17 04:00 98.5 92 20 159/82 98 Nasal Cannula 3.0 10/20/17 00:00 86 10/20/17 00:00 99.1 83 20 150/67 99 Nasal Cannula 3.0 10/19/17 21:53 90 138/59 10/19/17 20:00 89 10/19/17 20:00 97.5 89 20 148/66 98 Nasal Cannula 3.0 10/19/17 19:00 86 18 Nasal Cannula 2.0 28 10/19/17 19:00 Nasal Cannula 2.0 28 10/19/17 19:00 99 Nasal Cannula 2.0 28 10/19/17 17:17 147/71 10/19/17 16:05 86 10/19/17 16:00 97.7 86 19 99 Nasal Cannula 2.0 10/19/17 15:32 167/75 10/19/17 14:53 94 20 98 10/19/17 12:33 94 159/68 10/19/17 11:40 92 10/19/17 11:32 97.5 94 20 159/68 98 Nasal Cannula 3.0 Height (Feet): 5 Height (Inches): 2.00 Weight (Pounds): 134 Respiratory/Chest: lungs clear Cardiovascular: normal rate, regular rhythm, no gallop/murmur Abdomen: soft, non tender Extremities: no edema, other - left stump in dressings Microbiology Date/Time Source Procedure Growth Status 10/17/17 20:30 Stool Clostridium difficile Toxin Assay - Final Complete 10/19/17 10:00 Urine,Clean Catch Urine Culture - Preliminary Resulted 10/19/17 10:00 Urine,Catheterized Urine Culture - Preliminary Resulted Laboratory Tests Test 10/19/17 18:25 10/19/17 23:00 10/20/17 03:05 Troponin I 0.023 ng/mL (0.000-0.056) 0.027 ng/mL (0.000-0.056) White Blood Count 9.4 K/UL (4.8-10.8) Red Blood Count 3.06 M/UL (4.20-5.40) L Hemoglobin 9.4 G/DL (12.0-16.0) L Hematocrit 29.0 % (37.0-47.0) L Mean Corpuscular Volume 95 FL (80-99) Mean Corpuscular Hemoglobin 30.8 PG (27.0-31.0) Mean Corpuscular Hemoglobin Concent 32.5 G/DL (32.0-36.0) Red Cell Distribution Width 12.7 % (11.6-14.8) Platelet Count 339 K/UL (150-450) Mean Platelet Volume 6.8 FL (6.5-10.1) Neutrophils (%) (Auto) 80.2 % (45.0-75.0) H Lymphocytes (%) (Auto) 10.1 % (20.0-45.0) L Monocytes (%) (Auto) 8.3 % (1.0-10.0) Eosinophils (%) (Auto) 0.9 % (0.0-3.0) Basophils (%) (Auto) 0.6 % (0.0-2.0) Sodium Level 140 MMOL/L (136-145) Potassium Level 5.2 MMOL/L (3.5-5.1) H Chloride Level 108 MMOL/L (98-107) H Carbon Dioxide Level 27 MMOL/L (21-32) Anion Gap 5 mmol/L (5-15) Blood Urea Nitrogen 29 mg/dL (7-18) H Creatinine 1.1 MG/DL (0.55-1.30) Estimat Glomerular Filtration Rate mL/min (>60) Glucose Level 271 MG/DL (74-106) H Calcium Level 7.8 MG/DL (8.5-10.1) L CORA,SHAKUNTALA Oct 20, 2017 10:52
--- NOTE | 2017-10-20 10:53 | General Progress Note ---
Assessment/Plan Problem List: (1) Ischemia of foot ICD Codes: I99.8 - Other disorder of circulatory system SNOMED: 673396110, 517582166 (2) Hypoglycemia ICD Codes: E16.2 - Hypoglycemia SNOMED: 626406938 (3) Diabetes mellitus ICD Codes: E11.9 - Diabetes mellitus SNOMED: 74578565 (4) CKD (chronic kidney disease) ICD Codes: N18.9 - CKD (chronic kidney disease) SNOMED: 709272444 (5) L leg cellulitis Status: stable Assessment/Plan iv abx ivf antiplt rx ppi rx left le amputation to be scheduled by vascular- today. family d/w vascular surgeon poc. they are in agreement monitor bs insulin rx hold plavix and lovenox prior to surgery stable labs reviewed dc planning to ecf with ngt if willing to accept. otherwise may need to consider gt Subjective ROS Limited/Unobtainable: No Constitutional: Reports: malaise, weakness HEENT: Reports: no symptoms Cardiovascular: Reports: no symptoms Respiratory: Reports: cough Gastrointestinal/Abdominal: Reports: difficulty swallowing Genitourinary: Reports: no symptoms Neurologic/Psychiatric: Reports: pre-existing deficit Endocrine: Reports: no symptoms Hematologic/Lymphatic: Reports: no symptoms Allergies: Coded Allergies: OFLOXACIN (Verified Allergy, Unknown, 10/19/15) All Systems: reviewed and negative except above Subjective s/p uncomplicated left aka. still ngt feeds. remains somnolent and confused compared to baseline. failed swallow eval yesterday. Objective Last 24 Hour Vital Signs Date Time Temp Pulse Resp B/P (MAP) Pulse Ox O2 Delivery O2 Flow Rate FiO2 10/20/17 09:31 99 145/66 10/20/17 08:00 90 10/20/17 05:00 79 10/20/17 04:00 98.5 92 20 159/82 98 Nasal Cannula 3.0 10/20/17 00:00 86 10/20/17 00:00 99.1 83 20 150/67 99 Nasal Cannula 3.0 10/19/17 21:53 90 138/59 10/19/17 20:00 89 10/19/17 20:00 97.5 89 20 148/66 98 Nasal Cannula 3.0 10/19/17 19:00 86 18 Nasal Cannula 2.0 28 11/20/17 19:00 Nasal Cannula 2.0 28 10/19/17 19:00 99 Nasal Cannula 2.0 28 10/19/17 17:17 147/71 10/19/17 16:05 86 10/19/17 16:00 97.7 86 19 99 Nasal Cannula 2.0 10/19/17 15:32 167/75 10/19/17 14:53 94 20 98 10/19/17 12:33 94 159/68 10/19/17 11:40 92 10/19/17 11:32 97.5 94 20 159/68 98 Nasal Cannula 3.0 Laboratory Tests 10/19/17 18:25: Troponin I 0.023 10/19/17 23:00: Troponin I 0.027 10/20/17 03:05: White Blood Count 9.4, Red Blood Count 3.06L, Hemoglobin 9.4L, Hematocrit 29.0L , Mean Corpuscular Volume 95, Mean Corpuscular Hemoglobin 30.8, Mean Corpuscular Hemoglobin Concent 32.5, Red Cell Distribution Width 12.7, Platelet Count 339, Mean Platelet Volume 6.8, Neutrophils (%) (Auto) 80.2H, Lymphocytes ( %) (Auto) 10.1L, Monocytes (%) (Auto) 8.3, Eosinophils (%) (Auto) 0.9, Basophils (%) (Auto) 0.6, Sodium Level 140, Potassium Level 5.2H, Chloride Level 108H, Carbon Dioxide Level 27, Anion Gap 5, Blood Urea Nitrogen 29H, Creatinine 1.1, Estimat Glomerular Filtration Rate , Glucose Level 271H, Calcium Level 7.8L Height (Feet): 5 Height (Inches): 2.00 Weight (Pounds): 134 Objective General Appearance: WD/WN, lethargic, confused Neck: supple Cardiovascular: normal peripheral pulses, normal rate, regular rhythm Respiratory/Chest: chest wall non-tender, lungs clear, normal breath sounds, no respiratory distress Abdomen: normal bowel sounds, non tender, soft, no organomegaly Extremities: normal range of motion. Edema: no edema noted Arm (L), no edema noted Arm (R), no edema noted Leg (L), no edema noted Leg (R), no edema noted Pedal (L), no edema noted Pedal (R), no edema noted Generalized Neurologic: responsive, disoriented UOMOTO,ANSON Oct 20, 2017 10:53
[2017-10-20] MEDS ORDERED: Sodium Polystyrene Sulfonate 15gm Powder ORAL ONE (11:30)
[2017-10-20 12:00] VITALS: BP 156/71
[2017-10-20 16:00] VITALS: BP 157/69
[2017-10-20] MEDS ORDERED: NovoLOG Insulin Flexpen SUBQ SCH (18:00)
[2017-10-20 20:00] VITALS: BP 153/84
[2017-10-20] MEDS ORDERED: Albuterol/Ipratropium 3ml neb HHN PRN (20:30)
--- NOTE | 2017-10-20 22:00 | Operative Note - Dictated ---
DATE OF OPERATION: 10/19/2017 SURGEON: Renzo Bhat M.D. ANESTHESIOLOGIST: Ravinder Jennings M.D. PREOPERATIVE DIAGNOSES: 1. 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 2. Occluded left superficial femoral artery and occluded left popliteal and tibial vessels. 3. History of shock, encephalopathy, diabetes mellitus, hypertension, and peripheral neuropathy. POSTOPERATIVE DIAGNOSES: 1. 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 2. Occluded left superficial femoral artery and occluded left popliteal and tibial vessels. 3. History of shock, encephalopathy, diabetes mellitus, hypertension, and peripheral neuropathy. PROCEDURE: Left leg above-knee amputation. ANESTHESIA: General. COMPLICATIONS: None. IV FLUIDS: 800 mL. URINE OUTPUT: 700 mL. EBL: 200 mL. FINDINGS: A well-perfused left above-knee amputation stump with complete occlusion of superficial femoral artery and vessels were noted with completion of stump closure was accomplished. The patient tolerated the procedure very well. INDICATION FOR PROCEDURE: This is an 82-year-old female, who presented for above evaluation and procedure. Risks and benefits were discussed with the patient, the patient's son, and family and consent was obtained. Risks of infection, bleeding, risk of anesthesia, heart attack, stroke, , infection, need for further procedure etc...were all discussed at length and consent was obtained. BRIEF DESCRIPTION OF THE PROCEDURE: The patient was brought to the procedure room. After a dose of antibiotics and sedation by the anesthesiologist, the left leg was prepped and draped in the usual sterile manner. Anterior and posterior skin fish mouth incision was made of the left upper thigh. The subcutaneous tissue was divided. The muscle was electrocauterized down to the left femur. The left femur was sequentially dissected. The left femoral vessels were also sharply dissected and divided using a #0 silk suture. These were suture ligated with 4-0 Prolene suture. These were all occluded and heavily calcified. The muscle was viable and pink and the femur was divided several centimeters proximal to the skin incision and then angled. The edges were blunted. The left leg was sent to pathology for permanent sampling. The wounds were irrigated with antibiotic irrigation. The muscle was reapproximated using interrupted 2-0 and 3-0 Vicryl suture. The skin was closed using interrupted 3-0 nylon suture and skin was closed using skin stapler. Sterile dressing was applied. The patient tolerated the procedure very well. She was transferred to recovery hemodynamically stable. Renzo Bhat M.D. DR: ASHTYN JOB#: [id number] CC: Renzo Bhat M.D.; Fax#: [phone] Wendy Mcdermott M.D. [facility] CENTERAguila
[2017-10-20] MEDS ORDERED: HydrALAZINE 10mg Tab GT PRN (23:00)
[2017-10-21] VITALS (7 sets, daily range): BP systolic 123–168; BP diastolic 54–93
--- NOTE | 2017-10-21 00:30 | Progress Note ---
DATE: 10/20/2017 CARDIOLOGY PROGRESS NOTE SUBJECTIVE: The patient is postop day #2 following left AKA. Pain appears to be controlled. OBJECTIVE: VITAL SIGNS: Blood pressure 150/67, heart rate 82, respiratory rate 20, and temperature 99.1. NECK: Supple. LUNGS: Clear. CARDIAC: Regular. Normal S1, S2 with a fourth heart sound. Monitored rhythm, sinus. ABDOMEN: Soft. Stump is intact with drain. Plans reviewed. IMPRESSION: 1. Peripheral vascular disease, status post left above knee amputation. 2. Status post sepsis with shock due to urinary tract infection. 3. Metabolic and toxic encephalopathy. 4. Dysphagia. 5. Hypertensive heart disease. 6. Type 2 diabetes mellitus. 7. Chronic diastolic congestive heart failure. 8. Cerebrovascular disease with prior cerebrovascular accident PLAN: 1. Titrate antihypertensives. 2. Interim nutrition by the NG-tube. 3. Pain control. 4. Antimicrobials. 5. Wound care. 6. Insulin titration. Amari Rapp M.D. DR: REJI JOB#: [id number] CC:
[2017-10-21] MEDS ORDERED: Piperacillin/Tazobactam 3.375 GM in D5W 55 ML IVPB SCH (01:00)
[2017-10-21] MEDS ORDERED: Acetaminophen 650mg/20.3ml ORAL PRN (01:15)
[2017-10-21] MEDS: Heparin 5000 units/ml inj SUBQ SCH ×2 (05:57→14:00)
[2017-10-21] MEDS: NovoLOG Insulin Flexpen SUBQ SCH ×2 (05:57→11:30)
[2017-10-21] MEDS ORDERED: Levemir Flexpen SUBQ SCH (09:00)
[2017-10-21] MEDS ORDERED: Vancomycin 1 GM in D5W 275 ML IVPB SCH (09:00)
[2017-10-21] MEDS: Metoprolol Tartrate 50mg tab NG SCH (10:33)
[2017-10-21] MEDS: Gabapentin 300 MG/6 ML Soln GT SCH (10:35)
[2017-10-21] MEDS: Nystatin Powder 100,000 units/gm 15gm TOPIC SCH ×2 (10:35→12:55)
[2017-10-21 10:44] LABS: ALANINE AMINOTRANSFERASE 12 U/L (12-78); ALBUMIN/GLOBULIN RATIO 0.3 (1.0-2.7); ANION GAP 6 mmol/L (5-15); ASPARTATE AMINO TRANSFERASE 17 U/L (15-37); CALCIUM 7.9 MG/DL (8.5-10.1); CARBON DIOXIDE 28 MMOL/L (21-32); CHLORIDE 111 MMOL/L (98-107); CREATININE 1.1 MG/DL (0.55-1.30); SODIUM 145 MMOL/L (136-145); TOTAL PROTEIN 5.6 G/DL (6.4-8.2)
--- NOTE | 2017-10-21 12:03 | Infectious Diseases Prog Note ---
Assessment/Plan Assessment/Plan antibiotics : vancomycin iv, zosyn A 1. left leg cellulitis s/p AKA 2. left toe necrotic ulcers s/p AKA 3. leucocytosis resolved 4. DM 5. HTN 6. peripheral arterial disease 7. fungal UTI s/p rx P 1. d/c vancomycin iv, zosyn 2. 1 dose fluconazole 3. will follow up cultures Subjective ROS Limited/Unobtainable: Yes Allergies: Coded Allergies: OFLOXACIN (Verified Allergy, Unknown, 10/19/15) Objective Vital Signs Last 24 Hour Vital Signs Date Time Temp Pulse Resp B/P (MAP) Pulse Ox O2 Delivery O2 Flow Rate FiO2 10/21/17 10:33 75 145/58 10/21/17 08:26 97.0 83 22 168/71 100 10/21/17 04:00 99.5 78 19 123/54 99 Nasal Cannula 2.0 10/21/17 01:47 100.0 10/21/17 00:00 100.4 90 18 144/69 98 Nasal Cannula 2.0 10/20/17 21:00 102 153/84 10/20/17 20:00 99.1 102 18 153/84 97 Nasal Cannula 10/20/17 19:05 82 18 Nasal Cannula 2.0 28 10/20/17 19:05 97 Nasal Cannula 2.0 28 10/20/17 19:05 Nasal Cannula 2.0 28 10/20/17 16:00 84 10/20/17 16:00 98.4 93 18 157/69 97 Nasal Cannula 2.0 10/20/17 16:00 98.4 93 18 157/69 97 Nasal Cannula 2.0 Height (Feet): 5 Height (Inches): 2.00 Weight (Pounds): 148 Respiratory/Chest: lungs clear Cardiovascular: normal rate, regular rhythm, no gallop/murmur Abdomen: soft, non tender Extremities: no edema, other - left stump in dressings Microbiology Date/Time Source Procedure Growth Status 10/19/17 10:00 Urine,Clean Catch Urine Culture - Preliminary YEAST Resulted 10/19/17 10:00 Urine,Catheterized Urine Culture - Preliminary YEAST Resulted Laboratory Tests Test 10/20/17 21:25 10/21/17 09:45 Total Creatine Kinase 81 U/L (26-308) Sodium Level 145 MMOL/L (136-145) Potassium Level 4.0 MMOL/L (3.5-5.1) Chloride Level 111 MMOL/L (98-107) H Carbon Dioxide Level 28 MMOL/L (21-32) Anion Gap 6 mmol/L (5-15) Blood Urea Nitrogen 22 mg/dL (7-18) H Creatinine 1.1 MG/DL (0.55-1.30) Estimat Glomerular Filtration Rate mL/min (>60) Glucose Level 158 MG/DL (74-106) #H Calcium Level 7.9 MG/DL (8.5-10.1) L Total Bilirubin 0.3 MG/DL (0.2-1.0) Aspartate Amino Transf (AST/SGOT) 17 U/L (15-37) Alanine Aminotransferase (ALT/SGPT) 12 U/L (12-78) Alkaline Phosphatase 69 U/L (46-116) Total Protein 5.6 G/DL (6.4-8.2) L Albumin 1.4 G/DL (3.4-5.0) L Globulin 4.2 g/dL Albumin/Globulin Ratio 0.3 (1.0-2.7) L HEATHER SHEPHERD Oct 21, 2017 12:02
[2017-10-21] MEDS ORDERED: Fluconazole 100mg tab ORAL ONE (12:15)
[2017-10-21] MEDS ORDERED: PRAVASTATIN SOD20 M1 ORAL (13:26)
[2017-10-21] MEDS ORDERED: ACETAMINOPHEN325 M1 ORAL (13:52)
[2017-10-21] MEDS ORDERED: APRESOLINE10 MG ORAL (13:56)
[2017-10-21] MEDS ORDERED: NOVOLOG100 UNIT/4 SQ (13:57)
[2017-10-21] MEDS ORDERED: HEPARIN SO5000 UNIT2 SUBQ (13:57)
[2017-10-21] MEDS ORDERED: ALBUTEROL2.5 MG/3 M INH (14:01)
[2017-10-21] MEDS ORDERED: PREVACID30 MG ORAL (14:02)
[2017-10-21] MEDS ORDERED: LEVEMIR100 UNIT/1 SUBQ (14:05)
[2017-10-21] MEDS ORDERED: NYSTATIN15 GM TOPIC (14:09)
[2017-10-21] MEDS ORDERED: METOPROLOL TART50 MG ORAL (14:12)
[2017-10-21] MEDS ORDERED: Tubing IV Secondary IV ONE ×2 (14:29)
[2017-10-21] MEDS ORDERED: NS 500ML ONE ×2 (14:29)
--- NOTE | 2017-10-22 09:15 | Progress Note ---
DATE: 10/21/2017 CARDIOLOGY PROGRESS NOTE SUBJECTIVE: The patient is without chest pain or shortness of breath. She is having some loose stools. The patient is status post left AKA. Stump site is dressed with no signs of bleeding. OBJECTIVE: VITAL SIGNS: Blood pressure 145/58, pulse 75, respirations 22, afebrile. T-max 100.4. NECK: Supple. LUNGS: Clear. CARDIAC: Regular rhythm and rate. Normal S1, S2 with a fourth heart sound. ABDOMEN: Soft. EXTREMITIES: With AKA stump. Dressing in place. Otherwise, no edema. Baseline hemiparesis. IMPRESSION: 1. Necrotic and ischemia of left limb, status post above-knee amputation. 2. Status post sepsis with shock. 3. Acute myocardial ischemia, resolved. 4. Type 2 diabetes mellitus, stabilizing. 5. Peripheral artery disease, status post left above-knee amputation. 6. Hypertensive heart disease with elevated blood pressure trend at times. 7. Loose stools with fevers. PLAN: 1. Check C. diff, off antibiotics per Infectious Disease senior safety management consultant. 2. Defer additional antihypertensives until the patient is mobilized as she is at risk of orthostasis. 3. Titrate insulin coverage for blood glucose control. 4. Postop care. Amari Rapp M.D. DR: CAMILLE JOB#: [id number] CC:
--- NOTE | 2017-10-22 11:00 | Discharge Summary ---
Discharge Summary Hospital Course Date of Admission Oct 08, 2017 at 08:20 Date of Discharge Oct 21, 2017 at 14:30 Admitting Diagnosis persistent hypoglycemia, AMS HPI Darrius Manzano is a 82 year old female who was admitted on Oct 08, 2017 at 08:20 for Altered Mental Status, Persistent Hypoglycemia Discharge Discharge Disposition Patient was discharged to SNF/Subacute Facility(03) Discharge Diagnoses: Korina Case NP Oct 22, 2017 11:00
--- NOTE | 2017-10-22 21:00 | Discharge Summary 2 SIG ---
DATE OF ADMISSION: 10/08/2017 DATE OF DISCHARGE: 10/21/2017 CONSULTANTS: 1. Renzo Bhat M.D. 2. Tsering Dumont M.D. 3. Amari Rapp M.D. 4. Fredi Alves M.D. BRIEF HOSPITAL COURSE: The patient is an 82-year-old female who has history of peripheral artery disease, hypertension, stroke, and diabetes, presented from home after family members found her confused and altered. On evaluation at the emergency room, CAT scan of the head showed no evidence of acute stroke. She was noted to be hypoglycemic and received D50. Her mental status had slightly improved. On examination, she was noted to have left lower extremity cellulitis. Cold left leg with contracted knee with necrosis up to mid calf and wounds on the toes and calf. She has extensive vascular history with prior revascularization and very poor run-off to the left foot. She was seen by Dr. Alves for neurological evaluation. Verbal unresponsiveness was related to hypoglycemic episode and metabolic derangement. She was given IV fluids and was placed on antiplatelet therapy. She underwent an EEG. It showed mild diffuse slowing with higher amplitude noted over the left frontotemporal area indicating global cerebral dysfunction with lateralized amplitude abnormalities suggestive of underlying structural lesion corresponding to previous craniotomy. Brain MRI negative. Venous duplex of lower extremity was negative for DVT. Left superficial femoral artery to popliteal artery appeared to be occluded. Arterial ultrasound showed severe to critical ischemia of the left leg. She was given IV vancomycin and Zosyn by Infectious Disease specialist. She had an echocardiogram done that showed EF of 55%. On 10/19/2017, she underwent left leg above-knee amputation. She tolerated procedure well. Urine culture showed growth of Alysa. She was given one dose of fluconazole. Blood culture did not isolate any growth. Sputum culture with normal upper respiratory julio césar. She had episodes of diarrhea. Stool was negative for C. difficile. She was given wound care and was eventually discharged to [facility]. FINAL DIAGNOSES: 1. Severe peripheral arterial disease with non-salvageable left foot gangrene and severe calcific multilevel arterial occlusive disease, status post left leg above-knee amputation. 2. Status post sepsis with shock due to urinary tract infection. 3. Acute toxic metabolic encephalopathy. 4. Dysphagia. 5. Hypertensive heart disease. 6. Diabetes mellitus type 2. 7. Chronic diastolic congestive heart failure. 8. Cerebrovascular disease with prior cerebrovascular accident. 9. Fungal urinary tract infection. 10. Hypoglycemia. 11. Chronic kidney disease. 12. Left leg cellulitis. 13. Multiple pressure ulcers, present on admission. Please refer to wound documentation. 14. Drop in hemoglobin requiring blood transfusion. DISPOSITION: The patient was discharged to SNF. DISCHARGE MEDICATIONS: Refer to medication list. Osbaldo Grullon M.D. I have been assigned to dictate discharge summary on this account and I was not involved in the patient's management. Korina Case N.P. DR: KENYA JOB#: [id number] CC: DENIA
--- NOTE | 2017-10-26 10:17 | Diagnostic Imaging Report ---
APPROVED REPORT CPT Code: 46414 Present Symptoms Comments: Right arm Swelling RIGHT UPPER EXTREMITY: Venous imaging reveals patency of the internal jugular, subclavian, axillary and brachial veins. The cephalic and basilic veins are also patent. Doppler indicates normal spontaneous flow within these venous segments.
== END 2017-10-21 14:30 | DRG 853 ==
LOC: EDBD 07:52 → EMR 08:12 → EDBEDREQ 08:15 → UNDOADMIN 08:20 → 2E 08:20 → ICU 08:20 → EDBEDREQ 09:59 → EDBEDREQSVC 10:36 → EDBEDREQ 13:43 → 2W 10-12 15:52 → 4E 10-20 18:22
PROC: 0Y6D0Z1 Detachment at Left Upper Leg, High, Open Approach (ICD-10-PCS; principal; 2017-10-19 07:30)
DX: A41.9 Sepsis, unspecified organism (principal); G92 Toxic encephalopathy; R65.21 Severe sepsis with septic shock; E43 Unspecified severe protein-calorie malnutrition; I50.33 Acute on chronic diastolic (congestive) heart failure; N17.9 Acute kidney failure, unspecified; L03.116 Cellulitis of left lower limb; I69.954 Hemiplegia and hemiparesis following unspecified cerebrovascular disease affecting left non-dominant side; I48.0 Paroxysmal atrial fibrillation; B48.8 Other specified mycoses; I70.262 Atherosclerosis of native arteries of extremities with gangrene, left leg; N39.0 Urinary tract infection, site not specified; I13.0 Hypertensive heart and chronic kidney disease with heart failure and stage 1 through stage 4 chronic kidney disease, or unspecified chronic kidney disease; E11.21 Type 2 diabetes mellitus with diabetic nephropathy; E11.40 Type 2 diabetes mellitus with diabetic neuropathy, unspecified; E11.649 Type 2 diabetes mellitus with hypoglycemia without coma; I73.9 Peripheral vascular disease, unspecified; N18.9 Chronic kidney disease, unspecified; E87.6 Hypokalemia; I25.9 Chronic ischemic heart disease, unspecified; R19.7 Diarrhea, unspecified; Z68.27 Body mass index [BMI] 27.0-27.9, adult; E11.22 Type 2 diabetes mellitus with diabetic chronic kidney disease
CPT/HCPCS: 36415; 36600; 70450; 70553; 71010; 74000; 80048; 80053; 80202; 81001; 81003; 82550; 82553; 82803; 82962; 83036; 83605; 83690; 83735; 83880; 84484; 85007; 85025; 85610; 85730; 86850; 86900; 86901; 86920; 87040; 87070; 87081; 87086; 87205; 87324; 93005; 93306; 93925; 93970; 93971; 94003; 94150; 94640; 94664; 94760; 95819; A9585; J1815; J2250; J2405; J7620; S5561

== ENCOUNTER 2018-01-02 20:38 | Emergency (ER) | payer MEDICARE, MEDICAID ==
[~2018-01-02] VITALS: Ht 157.5 cm; Wt 70.3 kg
[~2018-01-02 20:38] MED LIST changes: +ACETAMINOPHEN325 M1 ORAL; +ALBUTEROL2.5 MG/3 M INH; +APRESOLINE10 MG ORAL; +CLOPIDOGREL75 MG ORAL; +DIOVAN HCT 3201 EACH ORAL; +FERROUS SULFAT325 MG ORAL; +FOLIC ACID1 MG ORAL; +GABAPENTIN600 MG ORAL; +GLIPIZIDE5 MG ORAL; +HEPARIN SO5000 UNIT2 SUBQ; +JANUVIA25 MG ORAL; +LEVEMIR100 UNIT/1 SUBQ; +LEVOTHYROXINE50 MCG ORAL; +METOPROLOL TART50 M1 ORAL; +METOPROLOL TART50 MG ORAL; +NORCO 5-325 TA1 EAC1 ORAL; +NOVOLOG100 UNIT/4 SQ; +NYSTATIN15 GM TOPIC; +PANTOPRAZOLE SO40 MG ORAL; +PRAVASTATIN SOD20 M1 ORAL; +PREVACID30 MG ORAL; +[UNRECOGNIZED DRUG - OTHER] ORAL
[2018-01-02 21:22] VITALS: BP 149/64
[2018-01-02] MEDS ORDERED: Cephalexin 500mg cap ORAL ONE (21:30)
[2018-01-02] MEDS ORDERED: Fluconazole 100mg tab ORAL ONE (21:30)
[2018-01-02] MEDS ORDERED: KEFLEX500 MG ORAL (22:23)
[2018-01-02] MEDS ORDERED: FLUCONAZOLE100 MG ORAL (22:23)
--- NOTE | 2018-01-02 22:23 | Emergency Room Report ---
History of Present Illness General Chief Complaint: Pain Source: Patient, Medical Record Present Illness HPI Is an 82-year-old [place] female with a history of diabetes and left BKA. She has a chronic Barrow in. She has frequent urinary tract infection. She presents with chief complaint of dysuria and frequency. Onset today. Urine little cloudy. No fever chills but no nausea vomiting. Denies any other complaint. Allergies: Coded Allergies: OFLOXACIN (Verified Allergy, Unknown, 10/19/15) Patient History Past Medical History: see triage record, old chart reviewed, DM Past Surgical History: other Pertinent Family History: none Social History: Denies: smoking Last Menstrual Period: N/A Now: No : 1 Para: 1 Immunizations: other Reviewed Nursing Documentation: PMH: Agreed, PSxH: Agreed Nursing Documentation-PMH Hx Cardiac Problems: Yes Hx Hypertension: Yes Hx Pacemaker: No Hx Asthma: Yes Hx COPD: No Hx Diabetes: Yes Hx Cancer: No Hx Gastrointestinal Problems: No Hx Neurological Problems: Yes Hx Cerebrovascular Accident: Yes Hx Seizures: No Hx Vertigo: Yes Hx Dizziness: Yes Hx Syncope: Yes Hx Neurologic Surgery: Yes - S/P BRAIN SURGERY 1997 (REMOVAL OF CLOT) Review of Systems Eye: Denies: eye pain, blurred vision ENT: Denies: ear pain, nose congestion, throat swelling Respiratory: Denies: cough, shortness of breath Cardiovascular: Denies: chest pain, palpitations Gastrointestinal: Denies: abdominal pain, diarrhea, nausea, vomiting Genitourinary: Reports: dysuria Musculoskeletal: Denies: back pain, joint pain Skin: Denies: rash Neurological: Denies: headache, numbness Endocrine: Denies: increased thirst, increased urine Hematologic/Lymphatic: Denies: easy bruising All Other Systems: negative except mentioned in HPI Physical Exam Vital Signs Date Time Temp Pulse Resp B/P (MAP) Pulse Ox O2 Delivery O2 Flow Rate FiO2 01/02/18 21:06 97.9 72 16 149/64 94 Room Air vitals normal Sp02 EP Interpretation: reviewed, normal General Appearance: well appearing, no apparent distress, alert Head: normocephalic, atraumatic Eyes: bilateral eye PERRL, bilateral eye EOMI ENT: hearing grossly normal, normal pharynx Neck: full range of motion, supple, no meningismus Respiratory: chest non-tender, lungs clear, normal breath sounds Cardiovascular #1: regular rate, rhythm, no murmur Gastrointestinal: normal bowel sounds, non tender, no mass, no organomegaly, no bruit, non-distended Genitourinary: other - Barrow with cloudy urine Musculoskeletal: back normal, normal range of motion Psychiatric: mood/affect normal Skin: warm/dry Medical Decision Making Diagnostic Impression: Primary Impression: UTI (urinary tract infection) Qualified Codes: T83.511A - Infection and inflammatory reaction due to indwelling urethral catheter, initial encounter; N39.0 - Urinary tract infection , site not specified ER Course She was recurrent UTI. Last couple times he grew out emilia. Because of 14 she grew out Escherichia coli sensitive to Keflex. Culture sent. No evidence of sepsis, for pyelonephritis to name a few. We'll discharge home. Her son wants her to be home rather than admitted. Last Vital Signs Date Time Temp Pulse Resp B/P (MAP) Pulse Ox O2 Delivery O2 Flow Rate FiO2 01/02/18 21:22 97.9 94 16 149/64 94 Room Air Status: improved Disposition: HOME, SELF-CARE Condition: Stable Scripts Cephalexin* (KEFLEX*) 500 Mg Capsule 500 MG ORAL TID, #21 CAP 0 Refills Prov: RICH RICHARD M.D. 01/02/18 Fluconazole (FLUCONAZOLE) 100 Mg Tablet 100 MG ORAL DAILY, #7 TAB 0 Refills Prov: RICH RICHARD M.D. 01/02/18 Additional Instructions: followup with your doctor in a week. Return if symptom worsen. RICH RICHARD M.D. Jan 02, 2018 22:23
[2018-01-02 22:47] VITALS: BP 149/64
== END 2018-01-02 22:47 | disposition home or self-care (01) ==
LOC: EMR 21:45
DX: N39.0 Urinary tract infection, site not specified (principal); I10 Essential (primary) hypertension; E11.9 Type 2 diabetes mellitus without complications; Z86.73 Personal history of transient ischemic attack (TIA), and cerebral infarction without residual deficits; J45.909 Unspecified asthma, uncomplicated
CPT/HCPCS: 51702; 87086; 87181; 99284

== ENCOUNTER 2018-05-05 10:49 | Outpatient (CLI) | payer MEDICARE, MEDICAID ==
[~2018-05-05 10:49] MED LIST changes: +FLUCONAZOLE100 MG ORAL; +KEFLEX500 MG ORAL
[2018-05-05 11:37] LABS: ALANINE AMINOTRANSFERASE 15 U/L (12-78); ALBUMIN/GLOBULIN RATIO 0.8 (1.0-2.7); ALKALINE PHOSPHATASE 31 U/L (46-116); ANION GAP 7 mmol/L (5-15); ASPARTATE AMINO TRANSFERASE 16 U/L (15-37); BILIRUBIN,TOTAL 0.3 MG/DL (0.2-1.0); BLOOD UREA NITROGEN 23 mg/dL (7-18); CALCIUM 8.8 MG/DL (8.5-10.1); CARBON DIOXIDE 26 MMOL/L (21-32); CHLORIDE 107 MMOL/L (98-107); CHOLESTEROL 118 MG/DL (< 200); CREATININE 1.5 MG/DL (0.55-1.30); HDL CHOLESTEROL 30 MG/DL (40-60); POTASSIUM 4.4 MMOL/L (3.5-5.1); SODIUM 140 MMOL/L (136-145); TRIGLYCERIDES 145 MG/DL (30-150)
--- NOTE | 2018-05-05 12:28 | Diagnostic Imaging Report ---
Indication: Cough Technique: One view of the chest Comparison: 10/08/2017 Findings: Fairly extensive pleural thickening and pleural-parenchymal calcification is again demonstrated in the right hemithorax. Left lung and pleural space are clear. No definite acute infiltrates. No effusions. The heart is enlarged. 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
== END 2018-05-05 12:49 | disposition home or self-care (01) ==
LOC: RAD 10:49
DX: I12.9 Hypertensive chronic kidney disease with stage 1 through stage 4 chronic kidney disease, or unspecified chronic kidney disease (principal); E11.22 Type 2 diabetes mellitus with diabetic chronic kidney disease; N18.9 Chronic kidney disease, unspecified; I51.7 Cardiomegaly
CPT/HCPCS: 36415; 71045; 80053; 80061; 83036